=== PATIENT | female | born 1970 | race Caucasian/White ===

== ENCOUNTER 2019-12-24 08:53 | Outpatient (REF) | payer MEDICAID, SELFPAY | END 2019-12-24 08:54 | disposition home or self-care (01) | LOC: HO.LAB 08:53 | PROVIDERS: PCP Nurse Practitioner Family; Visit Provider Internal Medicine | DX: Z20.828 Contact with and (suspected) exposure to other viral communicable diseases (principal) | CPT/HCPCS: 87635 ==

== ENCOUNTER 2020-11-10 12:24 | Outpatient (REF) | payer MEDICAID, SELFPAY ==
--- NOTE | ~2020-11-10 | MM_ITS ---
EXAMINATION: MM SCREENING DIGITAL BREAST TOMOSYNTHESIS, BILATERAL CLINICAL INFORMATION: Screening. Asymptomatic. The lifetime risk of breast cancer based on the Tyrer-Cuzick Model is 7%. COMPARISON: Mammography: 11/05/2019, 07/24/2018, 07/17/2017 TECHNIQUE: Digital breast tomosynthesis is performed in both the craniocaudal and mediolateral oblique views along with computer-aided detection (CAD). Synthesized 2D images are generated from the tomosynthesis. Additional left MLO view is provided. FINDINGS: The breasts are heterogeneously dense, which may obscure small masses (ACR BI-RADS breast composition Category c). There are no significant masses, abnormal calcifications, or other abnormalities. There is urinary artifact versus dermal calcifications bilateral axilla. The skin contours are smooth. Axillary nodes are unremarkable. No significant changes. MM/MM tomosynthesis screening BI IMPRESSION: No mammographic evidence of malignancy. ASSESSMENT: BI-RADS 2: Benign RECOMMENDATION: Routine annual mammography screening. This patient's information was entered into a reminder system with a target due date for their next mammogram.
== END 2020-11-10 12:25 | disposition home or self-care (01) ==
LOC: HO.MAMMO 12:24
PROVIDERS: PCP Family Medicine; Visit Provider Family Medicine
DX: Z12.31 Encounter for screening mammogram for malignant neoplasm of breast (principal)
CPT/HCPCS: 77063; 77067

== ENCOUNTER 2020-12-14 10:44 | Outpatient (REF) | payer MEDICAID, SELFPAY ==
--- NOTE | ~2020-12-14 | US_ITS ---
EXAMINATION: US PELVIS CLINICAL INFORMATION: Abnormal uterine bleeding. COMPARISON: None TECHNIQUE: Ultrasound of the pelvis is performed using both transabdominal and transvaginal transducers along with Doppler. Transvaginal imaging is performed due to inadequate visualization transabdominally. FINDINGS: The uterus is anteverted and measures 8.8 x 4.4 x 5.2 cm in dimension. No focal uterine lesion is seen. Endometrial thickness is normal measuring 0.5 cm. The right ovary is normal-appearing and measures 2.6 x 1.5 x 4.2 cm. The left ovary is enlarged and measures 4.3 x 3.2 x 4.4 cm. There is a 2.8 x 2.7 x 2.8 cm complex left ovarian cyst with some internal echoes and single thin septation. There is no fluid in the pelvis. US/US pelvic and transvaginal IMPRESSION: Normal-appearing uterus and normal thickness endometrium. Enlarged left ovary and 2.8 x 2.7 x 2.8 cm complex left ovarian cyst.
== END 2020-12-14 10:45 | disposition home or self-care (01) ==
LOC: HO.US 10:44
PROVIDERS: PCP Family Medicine; Visit Provider Family Medicine
DX: N93.9 Abnormal uterine and vaginal bleeding, unspecified (principal)
CPT/HCPCS: 76830; 76856

== ENCOUNTER 2021-08-31 10:14 | Outpatient (REF) | payer MEDICAID, SELFPAY ==
[2021-08-31 10:47] LABS: COVID-19 Test Negative (Negative); IDNOW Serial# 08D9AD1C
== END 2021-08-31 10:15 | disposition home or self-care (01) ==
LOC: HO.LAB 10:14
PROVIDERS: Visit Provider Internal Medicine
DX: Z20.822 Contact with and (suspected) exposure to COVID-19 (principal)
CPT/HCPCS: 87635; C9803

== ENCOUNTER → 2021-09-21 13:44 | Outpatient (BNVA) | payer MEDICAID, SELFPAY | PROVIDERS: PCP Internal Medicine; Visit Provider Nurse Practitioner Family | DX: Z01.818 Encounter for other preprocedural examination (principal); K21.9 Gastro-esophageal reflux disease without esophagitis | CPT/HCPCS: 99202 ==

== ENCOUNTER 2021-10-12 10:26 | Day surgery (SDC) | payer MEDICAID, SELFPAY ==
[2021-10-06 15:26] VITALS: BMI 32.6
--- NOTE | 2021-10-11 09:41 | P.CONAN_ITS ---
Documented by User: Nilda Christy NP 10/11/21 09:41 HPI - Anesthesia Eval Consult details Narrative: 51yo F for Upper Endoscopy and Colonoscopy [facility] Past Medical History Medical History Diabetes Elevated cholesterol Family history of Crohn's disease GERD (gastroesophageal reflux disease) Family History Family History (Updated 09/21/21 @ 14:32 by Jones Richardson) Paternal Grandfather Diabetes Family/Other Stomach cancer Sister Chronic disease Surgical History Surgical History Surgical history unknown Social History Social History (Updated 08/04/21 @ 13:58 by Jones Richardson) Household Members: Other Alcohol intake: unknown Patient Tobacco Use Status: Current everyday Tobacco user Tobacco use type: Cigarette Cigarettes Per Day: 9 Advance Directives: No Advance Directives Information Provided: Yes Meds Allergies Allergy/AdvReac Type Severity Reaction Status Date / Time No Known Allergies Allergy Verified 10/12/21 11:01 Home Medications Medication Instructions Recorded Confirmed Last Taken Type amoxicillin 875 mg-potassium 1 tab PO Q12H 09/21/21 Unknown History clavulanate 125 mg tablet atorvastatin 20 mg tablet 20 mg PO DAILY 09/21/21 Unknown History baclofen 10 mg tablet 10 mg PO BID 09/21/21 Unknown History blood sugar diagnostic (FreeStyle #10 ea 09/21/21 Unknown History Lite Strips) cholecalciferol (vitamin D3) 50 50 mcg PO DAILY 09/21/21 Unknown History mcg (2,000 unit) tablet (Vitamin D3) hydroxyzine HCl 50 mg tablet 50 mg PO Q8H PRN 09/21/21 Unknown History lancets 28 gauge (FreeStyle #100 ea 09/21/21 Unknown History Lancets) lancets 33 gauge (TRUEplus Lancets) #100 ea 09/21/21 Unknown History metformin 500 mg tablet 500 mg PO QPM 09/21/21 Unknown History naproxen 500 mg tablet 500 mg PO BID 09/21/21 Unknown History omeprazole 20 mg capsule,delayed 20 mg PO DAILY 09/21/21 Unknown History release quetiapine 100 mg tablet 100 mg PO QAM 09/21/21 Unknown History quetiapine 400 mg tablet 400 mg PO BEDTIME 09/21/21 Unknown History tramadol 50 mg tablet 50 mg PO Q8H PRN pain 09/21/21 Unknown History zolpidem 10 mg tablet 10 mg PO BEDTIME 09/21/21 Unknown History Exam Exam Date and Time: October 11, 2021 0941 Height,Weight and Vital Signs: Height 5 ft Weight 75.807 kg Assessment and Plan Assessment Anesthesia Assessment: Chart Reviewed Documented by User: Andrzej Wiley MD 10/12/21 11:09 [facility] Past Medical History Medical History Diabetes Elevated cholesterol Family history of Crohn's disease GERD (gastroesophageal reflux disease) Family History Family History (Updated 09/21/21 @ 14:32 by Jones Richardson) Paternal Grandfather Diabetes Family/Other Stomach cancer Sister Chronic disease Family history of problems with anesthesia: No Surgical History Surgical History Surgical history unknown History of Problems with Anesthesia: No Social History Social History (Updated 08/04/21 @ 13:58 by Jones Richardson) Household Members: Other Alcohol intake: unknown Patient Tobacco Use Status: Current everyday Tobacco user Tobacco use type: Cigarette Cigarettes Per Day: 9 Advance Directives: No Advance Directives Information Provided: Yes Meds Allergies Allergy/AdvReac Type Severity Reaction Status Date / Time No Known Allergies Allergy Verified 10/12/21 11:01 Home Medications Medication Instructions Recorded Confirmed Last Taken Type amoxicillin 875 mg-potassium 1 tab PO Q12H 09/21/21 Unknown History clavulanate 125 mg tablet atorvastatin 20 mg tablet 20 mg PO DAILY 09/21/21 Unknown History baclofen 10 mg tablet 10 mg PO BID 09/21/21 Unknown History blood sugar diagnostic (FreeStyle #10 ea 09/21/21 Unknown History Lite Strips) cholecalciferol (vitamin D3) 50 50 mcg PO DAILY 09/21/21 Unknown History mcg (2,000 unit) tablet (Vitamin D3) hydroxyzine HCl 50 mg tablet 50 mg PO Q8H PRN 09/21/21 Unknown History lancets 28 gauge (FreeStyle #100 ea 09/21/21 Unknown History Lancets) lancets 33 gauge (TRUEplus Lancets) #100 ea 09/21/21 Unknown History metformin 500 mg tablet 500 mg PO QPM 09/21/21 Unknown History naproxen 500 mg tablet 500 mg PO BID 09/21/21 Unknown History omeprazole 20 mg capsule,delayed 20 mg PO DAILY 09/21/21 Unknown History release quetiapine 100 mg tablet 100 mg PO QAM 09/21/21 Unknown History quetiapine 400 mg tablet 400 mg PO BEDTIME 09/21/21 Unknown History tramadol 50 mg tablet 50 mg PO Q8H PRN pain 09/21/21 Unknown History zolpidem 10 mg tablet 10 mg PO BEDTIME 09/21/21 Unknown History Exam Airway Mallampati Class: II TM Dist: >3cm Neck ROM: Full Denture: Upper and Lower Heart: rrr Lungs: clear Assessment and Plan Final Anesthetic Review Family History of Problems with Anesthesia: No History of Problems with Anesthesia: No NPO: Yes ASA Class: II Final Preanesthetic Review: No Changes in Pt Med Stat, Meds/Allgs Chart Reviewed, Consent Obtained/Reviewed and Anes Risks/Benef Reviewed Patient Risk: Intermediate Anesthetic Plan Anesthetic Plan: MAC: Disposition: Standard PACU
[2021-10-12 11:07] VITALS: BP 127/74; PULSE 73; RESP 18; TEMP 36.7; O2SAT 98
[2021-10-12] MEDS: Lactated Ringers 1,000 ML 100 ML IVCONT (11:07)
[2021-10-12 11:33] LABS: Glucose, Whole Blood 112 mg/dL (60-115)
--- NOTE | 2021-10-12 11:47 | MHC.SHP ---
Pre-Procedural Eval Section A Date of Service: 10/12/21 Section B Chief Complaint: reflux disease,screening Details of Present Illness: sister with crohns Relevant Family History (Specify if Yes): Yes Relevant Social History: None (ex smoker, just gave up) Present Medications: see Short Stay Collaborative assessment Medical History: Significant History (Diabetes Elevated cholesterol Family history of Crohn's disease GERD (gastroesophageal reflux disease)) History of Previous Operations: No relevant previous surgery Allergies: Allergies Allergy/AdvReac Type Severity Reaction Status Date / Time No Known Allergies Allergy Verified 10/12/21 11:01 Review of Systems Sugical H&P ROS: Negative: Constitution, Cardiovascular, Respiratory, Neurological, Psychiatric, Hem-Onc, Allergic/Immunologic, Gastrointestinal, Genitourinary, Musculoskeletal, Integumentary, Endocrine and Eyes/Ears/Nose/Throat Exam Surgical H&P Exam: Normal: HEENT, Normal: Heart, Normal: Lungs, Normal: Extremities, Normal: Abdomen, Normal: Skin and Normal: Neurological Plan Diagnosis/Plan: Unchanged I have reviewed the history and physical and performed a pertinent physical examination on my patient. No changes have occurred unless specified.
--- NOTE | 2021-10-12 11:49 | P.OP_ITS ---
Operative Note Operative Note Date of Service: 10/12/21 Narrative: Operative Information Procedure Description: EGD, Colonoscopy Indication: GERD, screening colonosopy Anesthesia: MAC FLEXIBLE TRANSORAL UPPER GASTROINTESTINAL ENDOSCOPY AND COLONOSCOPY PROCEDURE NOTE UPPER ENDOSCOPY Consent: Indications for the procedure and potential complications of bleeding, perforation, reaction to medications and missed diagnosis were discussed with the patient and informed consent was obtained. Instrument: Olympus GIF H 190 J mid size upper endoscope Monitoring: Vital signs and clinical assessment, continuous EKG monitoring, Pulse oximetry, Carbon Dioxide monitoring and blood pressure monitoring were done throughout the procedure. Procedure: The patient was placed in the left lateral decubitis position and pre-procedure medications were administered and a bite block was placed. The endoscope was inserted into the mouth and advanced under direct vision to the third part of duodenum. A careful inspection was made as the upper endoscope was withdrawn including a retroflexed examination of the proximal stomach; Findings and interventions are described below. Findings: Larynx:normal Esophagus: GE junction at 37 cm, diaphragm hiatus at 40 cm, consistent with 3 cm sliding hiatal hernia, normal mucosa, non obstructive schatzki ring noted. Stomach: erosive gastritis at antrum. Biopsies were obtained. Grade 2 flap valve on retroflexed examination of the cardia. Duodenum: bulbar duodenitis, bx taken Intervention: Biopsies as noted above COLONOSCOPY Instrument: Olympus variable stiffness pediatric scope 190L Colonoscopy Monitoring: Vital signs and clinical assessment, continuous EKG monitoring, Pulse oximetry, Carbon Dioxide monitoring and blood pressure monitoring were done throughout the procedure. Colon withdrawal time was 10 minutes. Procedure: The patient was placed in the left lateral decubitis position and pre-procedure medications were administered. After a digital rectal examination of the ano-rectum, the video colonoscope was inserted into the rectum and advanced through the colon to the cecum/TI. The colonoscope was slowly withdrawn in a retrograde panoramic fashion and the colon mucosa was carefully examined including a retroflexed view of the rectum. Findings and interventions are described below. Procedure Difficulty:easy Findings: Terminal Ileum-scattered erosions, bx taken Random right sided, left sided and rectum biopsies taken in separate jars Cecum:normal Ascending Colon: normal Transverse Colon -normal Descending Colon:normal Sigmoid Colon: normal Rectum: Retroflexion with small internal hemorrhoids, grade I, 5-6 mm sessile polyp removed with cold forceps. Small erosions and mild erythema in rectum Anorectum - normal Colon preparation: [place] Bowel Preparation Scale Right colon; 1-2 Transverse colon: 2 Left colon; 3 (0 = Unprepared colon segment with mucosa not seen due to solid stool that cannot be cleared. 1 = Portion of mucosa of the colon segment seen, but other areas of the colon segment not well seen due to staining, residual stool and/or opaque liquid. 2 = Minor amount of residual staining, small fragments of stool and/or opaque liquid, but mucosa of colon segment seen well. 3 = Entire mucosa of colon segment seen well with no residual staining, small fragments of stool or opaque liquid) Impression and Post Procedure Diagnosis: Endoscopy Findings: schatzki ring hiatal hernia erosive gastritis bulbar duodenitis Colonoscopy Findings: polyp internal hemorrhoids erosive ileitis mild colitis Plan: Await Pathology results Repeat Colonoscopy in 5 years due to fair right sided prep or earlier if clinically indicated High fiber diet leaflet avoid straining at stool, epsom salts and sitz bath, anusol supps or cream check nsaid history Above findings were reviewed with the patient and relevant handouts were provided if indicated.
[2021-10-12 12:44] VITALS: BP 128/76; PULSE 75; RESP 14; TEMP 36.4; O2SAT 99
[2021-10-12 12:57] VITALS: BP 135/77; PULSE 67; RESP 20; TEMP 36.4; O2SAT 100
== END 2021-10-12 13:17 | disposition home or self-care (01) ==
PROVIDERS: PCP Family Medicine; Visit Provider Internal Medicine Gastroenterology
PROC: (CPT 45380; principal; 2021-10-12 11:40)
DX: Z12.11 Encounter for screening for malignant neoplasm of colon (principal); K62.1 Rectal polyp; K64.0 First degree hemorrhoids; K52.89 Other specified noninfective gastroenteritis and colitis; K21.9 Gastro-esophageal reflux disease without esophagitis; K29.50 Unspecified chronic gastritis without bleeding; B96.81 Helicobacter pylori [H. pylori] as the cause of diseases classified elsewhere; K29.80 Duodenitis without bleeding; K22.2 Esophageal obstruction; K44.9 Diaphragmatic hernia without obstruction or gangrene; Z83.79 Family history of other diseases of the digestive system; E78.00 Pure hypercholesterolemia, unspecified; E11.9 Type 2 diabetes mellitus without complications; Z79.84 Long term (current) use of oral hypoglycemic drugs; Z79.899 Other long term (current) drug therapy; F17.210 Nicotine dependence, cigarettes, uncomplicated
CPT/HCPCS: 45380; 43239; 82947; 88305; 88342

== ENCOUNTER 2021-11-12 12:15 | Outpatient (REF) | payer MEDICAID, SELFPAY ==
--- NOTE | ~2021-11-12 | MM_ITS ---
EXAMINATION: MM SCREENING DIGITAL BREAST TOMOSYNTHESIS, BILATERAL CLINICAL INFORMATION: Screening. Asymptomatic. The lifetime risk of breast cancer based on the Tyrer-Cuzick Model is 7%. COMPARISON: Mammography: 11/10/2020, 11/05/2019, 07/24/2018, 07/17/2017 TECHNIQUE: Digital breast tomosynthesis is performed in both the craniocaudal and mediolateral oblique views along with computer-aided detection (CAD). Synthesized 2D images are generated from the tomosynthesis. FINDINGS: The breasts are heterogeneously dense, which may obscure small masses (ACR BI-RADS breast composition Category c). Parenchymal pattern is similar to prior studies. There is no developing density or architectural abnormality. Again, there is small nodular asymmetry central inner right breast similar to prior exams. The axilla and skin contours are unremarkable. No significant changes. MM/MM tomosynthesis screening BI IMPRESSION: No mammographic evidence of malignancy. ASSESSMENT: BI-RADS 2: Benign RECOMMENDATION: Routine annual mammography screening. This patient's information was entered into a reminder system with a target due date for their next mammogram.
== END 2021-11-12 12:16 | disposition home or self-care (01) ==
LOC: HO.MAMMO 12:15
PROVIDERS: PCP Family Medicine; Visit Provider Family Medicine
DX: Z12.31 Encounter for screening mammogram for malignant neoplasm of breast (principal)
CPT/HCPCS: 77063; 77067

== ENCOUNTER 2022-11-04 09:17 | Outpatient (REF) | payer MEDICAID, SELFPAY ==
[2022-11-04 12:08] LABS: Alanine Aminotransferase 18 U/L (0-31); Albumin Level 4.7 g/dL (3.5-5.0); Alkaline Phosphatase 59 U/L (39-117); Anion Gap 13 (12-20); Aspartate Amino Transferase 15 U/L (5-31); Bilirubin Total 0.5 mg/dL (0.0-1.0); Blood Urea Nitrogen 10 mg/dL (9-16); Calcium 10.4 mg/dL (8.4-10.2); Carbon Dioxide 26 mmol/L (22-29); Chloride 104 mmol/L (96-108); Cholesterol 214 mg/dL (<200); Estimated Glomerular Filt Rate > 60; Glucose Random 118 mg/dL (60-115); HDL Cholesterol 55 mg/dL (>40); LDL Cholesterol Calculated 148 mg/dL (<100); Potassium 3.5 mmol/L (3.3-5.1); Sodium 139 mmol/L (135-145); Triglycerides 58 mg/dL (<150)
[2022-11-04 12:37] LABS: Estimated Average Glucose 120 mg/dL; Hemoglobin A1C 149.6703 umol/L; Hemoglobin A1c % 5.8 % (<6.0)
== END 2022-11-04 09:18 | disposition home or self-care (01) ==
LOC: HO.HHCL 09:17
PROVIDERS: Visit Provider General Practice
DX: E11.9 Type 2 diabetes mellitus without complications (principal)
CPT/HCPCS: 36415; 80053; 80061; 83036

== ENCOUNTER 2022-11-18 12:25 | Outpatient (REF) | payer MEDICAID, SELFPAY | END 2022-11-18 12:26 | disposition home or self-care (01) | LOC: HO.MAMMO 12:25 | PROVIDERS: PCP General Practice; Visit Provider Family Medicine | DX: Z12.31 Encounter for screening mammogram for malignant neoplasm of breast (principal) | CPT/HCPCS: 77063; 77067 ==

== ENCOUNTER → 2022-11-18 12:30 | Outpatient (BNV) | payer MEDICAID, SELFPAY | PROVIDERS: PCP General Practice; Visit Provider Radiology Diagnostic Radiology | DX: Z12.31 Encounter for screening mammogram for malignant neoplasm of breast (principal) | CPT/HCPCS: 77063; 77067 ==

== ENCOUNTER 2023-06-20 12:12 | Outpatient (REF) | payer MEDICAID, SELFPAY ==
[2023-06-20 13:19] LABS: MANUAL DIFF FLAG NO
[2023-06-20 13:35] LABS: Basophils Percent Auto 0.2 % (0-2); Eosinophils Percent Auto 0.4 % (0-4); Hemoglobin 13.6 g/dl (12.0-16.0); Imm Gran Abs Auto 0.03 X10*3/uL (0.00-0.03); Imm Gran Pct Auto 0.3 % (0.0-0.4); Lymphocytes Absolute Auto 2.5 X10*3/uL (1.2-4.9); Lymphocytes Percent Auto 23.5 % (20-40); Mean Corpuscular HGB Conc 34.9 g/dl (31.0-35.0); Mean Corpuscular Hemoglobin 32.2 pg (27.0-33.0); Mean Corpuscular Volume 92.2 fL (80.0-98.0); Mean Platelet Volume 10.6 fL (9.4-12.3); Monocytes Absolute Auto 0.6 X10*3/uL (0.1-1.2); Monocytes Percent Auto 5.6 % (2-11); Neutrophils Absolute Auto 7.5 x10*3/uL (2.0-8.3); Platelet Count 364 X10*3/uL (160-400); Red Blood Count 4.23 X10*6/uL (4.20-5.50); White Blood Count 10.8 X10*3/uL (4.8-10.8)
== END 2023-06-20 12:13 | disposition home or self-care (01) ==
LOC: HO.HHCL 12:12
PROVIDERS: Visit Provider Nurse Practitioner Primary Care
DX: R20.0 Anesthesia of skin (principal)
CPT/HCPCS: 36415; 85025

== ENCOUNTER 2023-08-09 10:45 | Outpatient (REF) | payer MEDICAID, SELFPAY ==
[2023-08-09 12:31] LABS: Vitamin B12 513 pg/mL (200-900)
== END 2023-08-09 10:46 | disposition home or self-care (01) ==
LOC: HO.HHCL 10:45
PROVIDERS: Visit Provider Nurse Practitioner Primary Care
DX: R20.0 Anesthesia of skin (principal)
CPT/HCPCS: 36415; 82607

== ENCOUNTER 2023-11-24 12:15 | Outpatient (REF) | payer MEDICAID, SELFPAY ==
--- NOTE | ~2023-11-24 | MM_ITS ---
EXAMINATION: MM SCREENING DIGITAL BREAST TOMOSYNTHESIS, BILATERAL CLINICAL INFORMATION: Screening. Asymptomatic. COMPARISON: Mammography: Comparison is made with available priors TECHNIQUE: Digital breast mammography with tomosynthesis is performed in both the craniocaudal and mediolateral oblique views along with computer-aided detection (CAD). FINDINGS: The breasts are heterogeneously dense, which may obscure small masses (ACR BI-RADS breast composition Category c). There are no significant masses, abnormal calcifications, or other abnormalities. MM/MM tomosynthesis screening BI IMPRESSION: No mammographic evidence of malignancy. ASSESSMENT: BI-RADS BI-RADS 1 - Negative RECOMMENDATION: Routine annual mammography screening. 1 year F/U This examination should not preclude the clinical evaluation of a suspicious palpable abnormality. This patient's information was entered into a reminder system with a target due date for their next mammogram. Electronically signed by: Yadi Vogel DO 12/07/2023 08:17 PM EDT
== END 2023-11-24 12:16 | disposition home or self-care (01) ==
LOC: HO.MAMMO 12:15
PROVIDERS: Visit Provider General Practice
DX: Z12.31 Encounter for screening mammogram for malignant neoplasm of breast (principal)
CPT/HCPCS: 77063; 77067

== ENCOUNTER → 2023-11-24 12:30 | Outpatient (BNV) | payer MEDICAID, SELFPAY | PROVIDERS: Visit Provider Internal Medicine | DX: Z12.31 Encounter for screening mammogram for malignant neoplasm of breast (principal) | CPT/HCPCS: 77063; 77067 ==

== ENCOUNTER 2024-04-11 11:39 | Outpatient (REF) | payer MEDICAID, SELFPAY ==
[2024-04-11 12:59] LABS: MANUAL DIFF FLAG NO
[2024-04-11 13:11] LABS: Basophils Percent Auto 0.2 % (0-2); Eosinophils Absolute Auto 0.2 X10*3/uL (0.0-0.4); Eosinophils Percent Auto 1.9 % (0-4); Hematocrit 42.5 % (37.0-47.0); Hemoglobin 14.8 g/dl (12.0-16.0); Imm Gran Abs Auto 0.03 X10*3/uL (0.00-0.03); Imm Gran Pct Auto 0.3 % (0.0-0.4); Lymphocytes Absolute Auto 3.8 X10*3/uL (1.2-4.9); Lymphocytes Percent Auto 36.8 % (20-40); Mean Corpuscular HGB Conc 34.8 g/dl (31.0-35.0); Mean Corpuscular Hemoglobin 31.6 pg (27.0-33.0); Mean Corpuscular Volume 90.8 fL (80.0-98.0); Mean Platelet Volume 11.3 fL (9.4-12.3); Monocytes Absolute Auto 0.6 X10*3/uL (0.1-1.2); Monocytes Percent Auto 5.5 % (2-11); Neutrophils Absolute Auto 5.6 x10*3/uL (2.0-8.3); Neutrophils Percent Auto 55.3 % (45-73); Platelet Count 323 X10*3/uL (160-400); Red Blood Count 4.68 X10*6/uL (4.20-5.50); Red Cell Distribution Width 12.9 % (11.0-16.0); White Blood Count 10.2 X10*3/uL (4.8-10.8)
--- OUTSIDE RECORDS SUMMARY | 2024-04-11 15:35 | XMS_ITS | Encounter Summary ---
Author Organization [employer] Address [address] [place] [address] Care Team Providers Care Securities Analyst Name Role Phone Bianca Shearer MD Primary Care Provider [phone] David Clark Unavailable Unavailable Reason for Visit * Reason Onset Date Comments RS APPT 03/20/2024 Encounter Details Date Type Department Care Team (Late st Contact Info) Description 03/20/2024 Telephone [facility]INE [address] [place], [place] [phone] Ellen Crain MA RS APPT Social History Tobacco Use Types Packs/Day Years Used Date Smoking Tobacco: Former Cigarettes Q uit: 10/11/2021 Smokeless Tobacco: Never Alcohol Use Standard Drinks/Week Comments Not Asked 0 (1 standard drink = 0.6 oz pur e alcohol) Depression Answer Date Recorded Patient Health Questionnaire-9 Score 5 08/15/2023 Patient Health Questionnaire-9 Score 5 08/15/2023 Last PHQ-9: Questionnaire Data Not on file 0 08/15/2023 Housing Stability Answer Date Recorded What is your housing situation today? I have dima talbot 04/17/[address] you li ve. Do you have problems with any of the following? None of the above 04/17/2023 Food Insecurity Answer Date Recorded Within the past 12 months, y ou worried that your food would run out before you got money to buy more: Never True 04/17/2023 Within the past 12 months,th e food you bought just didn't last and you didn't have enough money to get more: Never True 07/2023 Transportation Answer Date Recorded In the past 12 months, has l ack of transportation kept you from medical appts, meetings, work or from getting things needed for daily living? No 04/17/2023 Utilities Answer Date Recorded In the past 12 months, has t he electric, gas, oil or water company threatened to shut off services in your home? No 04/17/2023 Depression Answer Date Recorded Patient Health Questionnaire-2 Score 1 08/15/2023 Comments Unknown Sex and Gender Information Value Date Recorded Sex Assigned at Female 01/10/2022 10:18 AM EDT Legal Sex Female 10:18 AM EDT Gender Identity Female 01/10/2022 10:18 AM EDT Sexual Orientation Choose not to disclose 2021 10:18 AM EDT documented as of this encounter Miscellaneous Notes * Telephone Encounter - Ellen Crain MA - 03/20/2024 10:02 AM EST T/C placed spoke with pt, pt agreed to rs appt from 04/05/24 to 04/11/24 documented in this encounter Plan of Treatment Upcoming Encounters Date Type Department Care Team (Late st Contact Info) Description 06/03/2024 10:00 AM EDT Clinical Support [facility] [address] [place] [address] Heidi Castañeda RN documented as of this encounter Visit Diagnoses Not on filedocumented in this encounter Additional Health Concerns Assessment Noted Time PHQ-9 Depression Total Score: 5 08/15/19 24 9:39 AM EDT documented as of this encounter Care Teams Securities Analyst Relationship Specialty Start Date End Date Bianca Shearer MD [address] [place] [address] PCP - General Family Medicine 11/26/21 David Clark FNP [address] [place] [address] Nurse Practitioner Family Medicine 01/24/23 documented as of this encounter
--- OUTSIDE RECORDS SUMMARY | 2024-04-11 15:35 | XMS_ITS | Encounter Summary ---
Author Organization [employer] Address [address] [place] [address] Care Team Providers Care Buttoner Name Role Phone Bianca Shearer MD Primary Care Provider [phone] David Calrk Unavailable Unavailable Reason for Visit * Reason Comments Med Refill Encounter Details Date Type Department Care Team ([facility] st Contact Info) Description 02/01/[address] [facility] MEDICINE [address] [place], [place] [phone] Bianca Shearer MD [address] [place] [address] Chronic pain of right knee Social History Tobacco Use Types Packs/Day Years [...] AM EDT documented as of this encounter Plan of Treatment Upcoming Encounters Date Type Department Care Team (Late st Contact Info) Description 06/03/2024 10:00 AM EDT Clinical Support [facility]INE [address] [place] [address] Heidi Castañeda RN documented as of this encounter Visit Diagnoses Diagnosis Chronic pain of right knee documented in this encounter Additional Health Concerns Assessment Noted Time PHQ-9 Depression Total Score: 5 08/15/19 24 9:39 AM EDT documented as of this encounter Care Teams Buttoner Relationship Specialty Start Date End Date Bianca Shearer MD [address] [place] [id number] PCP - General Family Medicine 11/26/21 David Clark FNP [address] [place] [id number] Nurse Practitioner Family Medicine 01/24/23 documented as of this encounter
--- OUTSIDE RECORDS SUMMARY | 2024-04-11 15:35 | XMS_ITS | Encounter Summary ---
Author Organization [employer] Address [address] [place] [address] Care Team Providers Care Manager Card Name Role Phone Bianca Shearer MD Primary Care Provider [phone] David Clark Unavailable Unavailable Reason for Visit * Reason Onset Date Comments Med Refill 02/01/2024 Encounter Details Date Type Department Care Team (Late st Contact Info) Description 02/01/2024 Telephone [facility] MEDICINE [address] [place], [place] [phone] Bianca Shearer MD [address] [place] [address] Med Refill Social History Tobacco Use Types Packs/Day Years [...] encounter Miscellaneous Notes * Telephone Encounter - Emily Davenport LPN - 02/01/2024 9:21 AM EST STEAMFITTER checked on 02/01/24 medication should still have refills. * Telephone Encounter - Dee Gama - 02/01/2024 9:05 AM EST TC from pt requesting medication refill. Medications needing refill : zolpidem (Ambien) 10 MG tablet To be sent to: [facility]/pharmacy #[id number] - [address] documented in this encounter Plan of Treatment Upcoming Encounters Date Type Department Care Team (Late st Contact Info) Description 06/03/2024 10:00 AM EDT Clinical Support [facility] MEDICINE [address] [place] [address] Heidi Castañeda RN documented as of this encounter Visit Diagnoses Not on filedocumented in this encounter Additional Health Concerns Assessment Noted Time PHQ-9 Depression Total Score: 5 08/15/19 9:39 AM EDT documented as of this encounter Care Teams Manager Card Relationship Specialty Start Date End Date Bianca Shearer MD [address] [place] [address] PCP - General Family Medicine 11/26/21 David Clark FNP [address] [place] [address] RAUL Saldaña [id number] Nurse Practitioner Family Medicine 01/24/23 documented as of this encounter
--- OUTSIDE RECORDS SUMMARY | 2024-04-11 15:35 | XMS_ITS | Encounter Summary ---
Author Organization [employer] Address [address] [facility] [facility] [address] [place] [address] Care Team Providers Care Advertising Assistant Name Role Phone Bianca Shearer MD Primary Care Provider [phone] David Clark Unavailable Unavailable Encounter Details Date Type Department Care Team (Late st Contact Info) Description 11/11/2022 Orders Only [facility] MEDICINE [address] [place], [place] [phone] Bianca Shearer MD [address] [place], [place] [phone] Social History Tobacco Use Types Packs/Day Years Used Date Smoking Tobacco: Former Cigarettes Q uit: 10/11/2021 Smokeless Tobacco: Never Depression Answer Date Recorded Patient Health Questionnaire-9 Score 0 09/27/2022 Depression Answer Date Recorded Patient Health Questionnaire-2 Score 0 09/27/2022 Comments Unknown Sex and Gender Information Value Date Recorded Sex Assigned at Female 01/10/2022 10:18 AM EDT Legal Sex Female 10:18 AM EDT Gender Identity Female 01/10/2022 10:18 AM EDT Sexual Orientation Choose not to disclose 2021 10:18 AM EDT documented as of this encounter Miscellaneous Notes * Result Encounter Note - LUZ Pierre - 11/11/2022 10:42 AM EDT This was drawn at lab downstairs, can you outreach to clarify and see if lab can repeat or run off of CBC done? documented in this encounter Plan of Treatment Upcoming Encounters Date Type Department Care Team (Late st Contact Info) Description 06/03/2024 10:00 AM EDT Clinical Support [facility] MEDICINE [address] [place] [address] Heidi Castañeda RN documented as of this encounter Procedures Procedure Name Priority Date/Time Associated Diagnosis Comments CANCELLED CHEMISTRY Routine 06/20/2023 1 2:18 PM EDT BI MAMMOGRAM SCREENING TOMOSYNTHESIS BILATERAL Routine 11/18/2022 12:50 PM EDT documented in this encounter Results * Cancelled Chemistry (06/20/2023 12:18 PM EDT) Cancelled Chemistry SEE NOTE [facility] Comment:B12 UNABLE TO BE PER FORMED DUE TO INCORRECT CONTAINER TYPERECEIVED 06/20/2023 12:1 8 PM EDT 06/20/2023 1:42 PM EDT us Maria D Leo ANP HISTORICAL/NON ORDERABLE LABS Fi nal Result [facility] [address] [place] [address] [phone] * BI Mammogram Screening Tomosynthesis Bilateral (11/18/2022 12:50 PM EDT) Anatomical Region Laterality Modality Breast Bilateral Mammography 11/18/2022 12:5 0 PM EDT Narrative 12/05/2022 9:40 PM EDT ? [facility] ? [address] ?[place] [address] ? Mammography Report ? Signed ? Patient: Rainey,Farnaz ?MR#: [id number] ?? [id number] ? : 1970 ?Acct:[id number] ? Age/Sex: 52 / F ?ADM Date: 09//23 ? Loc: HO.MAMMO ? Attending Dr: Danielle Hightower MD ? Ordering Physician: Danielle Hightower MD ?Results: 1Nega ?? tive ? Date of Service: 11/18/22 ?Follow Up: 1 Year From Orig ?? inal Mammogram ? Procedure(s): MM tomosynthesis screening BI ?? Accession Number(s): [id number] ? cc: Bianca Shearer; Danielle Hightower MD ? EXAMINATION: ?? MM SCREENING DIGITAL BREAST TOMOSYNTHESIS, BILATERAL ? CLINICAL INFORMATION: ? Screening. Asymptomatic. ? COMPARISON: ?? Mammography: This study is compared with prior exams dating back to ?? 2018. ? TECHNIQUE: ?? Digital breast tomosynthesis is performed in both the craniocaudal and ?? mediolateral oblique views along with computer-aided detection (CAD). ?? Synthesized 2D images are generated from the tomosynthesis. ? FINDINGS: ?? The breasts are heterogeneously dense, which may obscure small masses ?? (ACR BI-RADS breast composition Category c). ? There are no significant masses, abnormal calcifications, or other ?? abnormalities. ? MM/MM tomosynthesis screening BI ?? IMPRESSION: ?? No mammographic evidence of malignancy. ? ASSESSMENT: ? BI-RADS BI-RADS 1 - Negative ? RECOMMENDATION: ?? Routine annual mammography screening. ? 1 year F/U ? This examination should not preclude the clinical evaluation of a ?? suspicious palpable abnormality. ? This patient's information was entered into a reminder system with a ?? target due date for their next mammogram. ? Dictated By: ?Earline Noel MD ? Signed By: ?<Electronically signed by Earline Noel MD in OV> ? 12/05/226 ? DD/ 1250 ? TD/TT: ? Library Helper: ? Procedure Note Donotuseinterpreter, Image - [facility]06/2022 [facility] [address] [place] [address] Mammography Report Signed Patient: Lorraine Rainey#: [id number] : 1970Acct:[id number] Age/Sex: 52 / FADM Date: 11/18/22 Loc: PRABHJOT Attending Dr: Danielle Hightower MD Ordering Physician: Danielle Hightowerults: 1Nega tive Date of Service: 11/18/22Follow Up: 1 Year From Orig inal Mammogram Procedure(s): MM tomosynthesis screening BI Accession Number(s): [id number] cc: Bianca Shearer; Danielle Hightower MD EXAMINATION: MM SCREENING DIGITAL BREAST TOMOSYNTHESIS, BILATERAL CLINICAL INFORMATION: Screening. Asymptomatic. COMPARISON: Mammography: This study is compared with prior exams dating back to 2018. TECHNIQUE: Digital breast tomosynthesis is performed in both the craniocaudal and mediolateral oblique views along with computer-aided detection (CAD). Synthesized 2D images are generated from the tomosynthesis. FINDINGS: The breasts are heterogeneously dense, which may obscure small masses (ACR BI-RADS breast composition Category c). There are no significant masses, abnormal calcifications, or other abnormalities. MM/MM tomosynthesis screening BI IMPRESSION: No mammographic evidence of malignancy. ASSESSMENT: BI-RADS BI-RADS 1 - Negative RECOMMENDATION: Routine annual mammography screening. 1 year F/U This examination should not preclude the clinical evaluation of a suspicious palpable abnormality. This patient's information was entered into a reminder system with a target due date for their next mammogram. Dictated By: Earline Noel MD Signed By: <Electronically signed by Earline Noel MD in OV> 12/05/222135 DD/ 1250 TD/TT: Library Helper: us Danielle Hightower MD IMG BI PROCEDURES Edited Resu lt - Final documented in this encounter Visit Diagnoses Not on filedocumented in this encounter Additional Health Concerns Assessment Noted Time PHQ-9 Depression Total Score: 0 09/28/19 23 9:26 AM EDT documented as of this encounter Care Teams Advertising Assistant Relationship Specialty Start Date End Date Bianca Shearer MD [address] [place] [address] PCP - General Family Medicine 11/26/21 David Clark FNP [address] [place] [address] Nurse Practitioner Family Medicine 01/24/23 documented as of this encounter
--- OUTSIDE RECORDS SUMMARY | 2024-04-11 15:35 | XMS_ITS | Encounter Summary ---
Author Organization [employer] Address [address] [place] [address] Care Team Providers Care Gripper Installer Name Role Phone Bianca Shearer MD Primary Care Provider [phone] David Clark Unavailable Unavailable Reason for Visit * Reason Onset Date Comments Call Back Request 04/02/2024 Encounter Details Date Type Department Care Team ([facility] st Contact Info) Description 04/02/2024 Telephone [facility] MED[facility]INE [address] [place], [place] [phone] Bianca Shearer MD [address] [place], [place] [phone] Call Back Request Social History Tobacco Use Types Packs/Day Years [...] from getting things needed for daily living? Yes, it has kept me from non-medical meetings, work, or getting things that I need 04/02/2024 Utilities Answer Date Recorded In the past 12 months, has t he electric, gas, oil or water company threatened to shut off services in your home? No 04/17/2023 Depression Answer Date Recorded Patient Health Questionnaire-2 Score 1 08/15/2023 Internet Access Answer Date Recorded Internet Access Q1 Yes 04/02/2024 Internet Access Q2 Not on file 04/02/2024 Comments Unknown Sex and Gender Information Value Date Recorded Sex Assigned at Female 01/10/2022 10:18 AM EDT Legal Sex Female 10:18 AM EDT Gender Identity Female 01/10/2022 10:18 AM EDT Sexual Orientation Choose not to disclose 2021 10:18 AM EDT documented as of this encounter Miscellaneous Notes * Telephone Encounter - Heidi Castañeda RN - 04/02/2024 11:47 AM EST Return TC to patient, rescheduled [employer] appt for 04/03/24 @ 10am. * Telephone Encounter - Rossy Hernandez - 04/02/2024 8:57 AM EST Tc from pt requesting a call back in regards urine labs. [phone] documented in this encounter Plan of Treatment Upcoming Encounters Date Type Department Care Team (Late st Contact Info) Description 06/03/2024 10:00 AM EDT Clinical Support [facility] [address] [place] [phone] Heidi Castañeda, RN documented as of this encounter Visit Diagnoses Not on filedocumented in this encounter Additional Health Concerns Assessment Noted Time PHQ-9 Depression Total Score: 5 08/15/19 9:39 AM EDT documented as of this encounter Care Teams Gripper Installer Relationship Specialty Start Date End Date Bianca Shearer MD [address] [place] [address] PCP - General Family Medicine 11/26/21 David Clark FNP [address] [place] [address] Nurse Practitioner Family Medicine 01/24/23 documented as of this encounter
--- OUTSIDE RECORDS SUMMARY | 2024-04-11 15:35 | XMS_ITS | Encounter Summary ---
Author Organization [employer] Address [address] [facility] [address] [place] [address] Care Team Providers Care Dry Pan Operator Name Role Phone Bianca Shearer MD Primary Care Provider [phone] David Clark Unavailable Unavailable Reason for Visit * Reason Comments Med Refill Encounter Details Date Type Department Care Team ([facility] st Contact Info) Description 02/01/2024 Refill [facility] MEDICINE [address] [place], [place] [phone] Bianca Shearer MD [address] [place] [address] Social History Tobacco Use Types Packs/Day Years [...] Description 06/03/2024 10:00 AM EDT Clinical Support [facility] MEDICINE [address] [place] [address] Heidi Castañeda, SARAH BETH documented as of this encounter Visit Diagnoses Not on filedocumented in this encounter Additional Health Concerns Assessment Noted Time PHQ-9 Depression Total Score: 5 08/15/19 24 9:39 AM EDT documented as of this encounter Care Teams Dry Pan Operator Relationship Specialty Start Date End Date Bianca Shearer MD [address] [place] [phone] PCP - General Family Medicine 11/26/21 David Clark FNP [address] [place] [phone] Nurse Practitioner Family Medicine 01/24/23 documented as of this encounter
--- OUTSIDE RECORDS SUMMARY | 2024-04-11 15:35 | XMS_ITS | Encounter Summary ---
Author Organization [employer] [facility] Address [address] [place] [address] 7t [place] [address] Care Team Providers Care Farmworker Dairy Name Role Phone Bianca Shearer MD Primary Care Provider [phone] David Clark Unavailable Unavailable Reason for Visit * Reason Comments Med Refill Encounter Details Date Type Department Care Team (Late st Contact Info) Description 12/30/2022 Refill [facility] MEDICINE [address] [place] [address] [phone] Emily Sheikh DO [address] [place] [address] Social History Tobacco Use Types Packs/Day Years Used Date Smoking Tobacco: Former Cigarettes Q uit: 10/11/2021 Smokeless Tobacco: Never Depression Answer Date Recorded Patient Health Questionnaire-9 Score 1 12/29/2022 Patient Health Questionnaire-9 Score 1 12/29/2022 Last PHQ-9: Questionnaire Data Not on file 1 Depression Answer Date Recorded Patient Health Questionnaire-2 Score 0 12/29/2022 Comments Unknown Sex and Gender Information Value [...] Description 06/03/2024 10:00 AM EDT Clinical Support [facility] MEDICINE [address] [place] [phone] Maddy, Heidi, RN documented as of this encounter Visit Diagnoses Not on filedocumented in this encounter Additional Health Concerns Assessment Noted Time PHQ-9 Depression Total Score: 1 12/30/19 23 8:54 AM EDT documented as of this encounter Care Teams Farmworker Dairy Relationship Specialty Start Date End Date Bianca Shearer MD [address] [place] [address] PCP - General Family Medicine 11/26/21 David Clark FNP [address] [place] [address] Nurse Practitioner Family Medicine 01/24/23 documented as of this encounter
--- OUTSIDE RECORDS SUMMARY | 2024-04-11 15:35 | XMS_ITS | Encounter Summary ---
Author Organization [email or web address] [facility] Address [address] 7[address] [place] [address] Care Team Providers Care Commercial Front Load Driver Name Role Phone Bianca Shearer MD Primary Care Provider [phone] David Clark Unavailable Unavailable Reason for Visit * Reason Comments Med Refill Encounter Details Date Type Department Care Team (Late st Contact Info) Description 12/29/[address] [facility] MEDICINE [address] [place] [phone] Bianca Shearer MD [address] [place] [phone] Chronic pain of right knee Social History [...] Description 06/03/2024 10:00 AM EDT Clinical Support [facility] MEDICINE [address] [place] [phone] Heidi Castañeda, RN documented as of this encounter Visit Diagnoses Diagnosis Chronic pain of right knee documented in this encounter Additional Health Concerns Assessment Noted Time PHQ-9 Depression Total Score: 1 12/30/19 23 8:54 AM EDT documented as of this encounter Care Teams Commercial Front Load Driver Relationship Specialty Start Date End Date Bianca Shearer MD [address] [place] [address] PCP - General Family Medicine 11/26/21 David Clark FNP [address] [place] [address] Nurse Practitioner Family Medicine 01/24/23 documented as of this encounter
--- OUTSIDE RECORDS SUMMARY | 2024-04-11 15:35 | XMS_ITS | Encounter Summary ---
Author Organization [employer] Address [address] [place] [address] Care Team Providers Care Expansion Joint Finisher Name Role Phone Bianca Shearer MD Primary Care Provider [phone] David Clark Unavailable Unavailable Reason for Visit * Reason Onset Date Comments Med Refill 03/29/2024 Encounter Details Date Type Department Care Team (Late st Contact Info) Description 03/29/2024 Refill [facility] MEDICINE [address] [place], [place] [phone] Bianca Shearer MD [address] [place] [address] Chronic pain of right knee Social History [...] encounter Miscellaneous Notes * Telephone Encounter - Rossy Hernandez - 03/29/2024 1:33 PM EST TC from pt requesting medication refill. Pt states know is early but she's requesting because Monday [facility] are going to be closed. Medications needing refill : traMADol (Ultram) 50 MG tablet To be sent to: [id number] [place] [facility] [address] [place] [address] documented in this encounter Plan of Treatment Upcoming Encounters Date Type Department Care Team (Late st Contact Info) Description 06/03/2024 10:00 AM EDT Clinical Support [facility]INE [address] [place] [address] Heidi Castañeda, SARAH BETH documented as of this encounter Visit Diagnoses Diagnosis Chronic pain of right knee documented in this encounter Additional Health Concerns Assessment Noted Time PHQ-9 Depression Total Score: 5 08/15/19 24 9:39 AM EDT documented as of this encounter Care Teams Expansion Joint Finisher Relationship Specialty Start Date End Date Bianca Shearer MD [address] [place] [address] PCP - General Family Medicine 11/26/21 Daivd Clark FNP [address] [place] [address] Nurse Practitioner Family Medicine 01/24/23 documented as of this encounter
--- OUTSIDE RECORDS SUMMARY | 2024-04-11 15:35 | XMS_ITS | Encounter Summary ---
Author Organization [employer] Address [address] [facility] 7t [place] [address] Care Team Providers Care Qa Engineer Name Role Phone Bianca Shearer MD Primary Care Provider [phone] David Clark Unavailable Unavailable Reason for Visit * Reason Onset Date Comments Med Refill 03/29/2024 Encounter Details Date Type Department Care Team (Late st Contact Info) Description 03/29/2024 Refill [facility] MEDICINE [address] [place], [place] [phone] Bianca Shearer MD [address] [place] [address] Other specified anxiety disorders Social History Tobacco Use Types Packs/Day Years [...] Telephone Encounter - Rossy Hernandez - 03/29/2024 1:31 PM EST TC from pt requesting medication refill. Medications needing refill : zolpidem (Ambien) 10 MG tablet To be sent to: [facility]/pharmacy #[id number] - [place], [place] - [address] [place] [address] documented in this encounter Plan of Treatment Upcoming Encounters Date Type Department Care Team (Late st Contact Info) Description 06/03/2024 10:00 AM EDT Clinical Support [facility] MEDICINE [address] [place] [address] Heidi Castañeda RN documented as of this encounter Visit Diagnoses Diagnosis Other specified anxiety disorders documented in this encounter Additional Health Concerns Assessment Noted Time PHQ-9 Depression Total Score: 5 08/15/19 24 9:39 AM EDT documented as of this encounter Care Teams Qa Engineer Relationship Specialty Start Date End Date Bianca Shearer MD [address] [place] [address] PCP - General Family Medicine 11/26/21 David Clark FNP [address] [place] [address] Nurse Practitioner Family Medicine 01/24/23 documented as of this encounter
--- OUTSIDE RECORDS SUMMARY | 2024-04-11 15:36 | XMS_ITS | Encounter Summary ---
Author Organization [employer] Address [address] [facility] 7t [place] [address] Care Team Providers Care Diagnostic Assistant Name Role Phone Bianca Shearer MD Primary Care Provider [phone] David Clark Unavailable Unavailable Reason for Visit * Reason Comments Diabetes Encounter Details Date Type Department Care Team ([facility] st Contact Info) Description 04/11/2024 11:00 AM EST Office Visit [facility] MEDICINE [address] [place], [place] [phone] Bianca Shearer MD [address] [place], [place] [phone] Bleeds easily ([facility]) (Primary Dx); Type 2 diabetes mellitus without complication, without long-term current use of insulin ([facility]); Type 2 diabetes mellitus with hyperglycemia, unspecified whether [place] [facility] insulin use ([facility]) Social History Tobacco Use Types Packs/Day Years Used Date Smoking Tobacco: Former Cigarettes Q uit: 10/11/2021 Smokeless Tobacco: Never Tobacco Cessation:Counseling Given: Not Answered Alcohol Use Standard Drinks/Week Comments Not Asked [...] AM EDT documented as of this encounter Last Filed Vital Signs Vital Sign Reading Time Taken Comments Blood Pressure 129/92 04/11/2024 11:11 AM EST Pulse 89 04/11/2024 11:11 AM EST Temperature 36.2 ??C (97.1 ??F) 04/11/2024 11:[address] Respiratory Rate - - Oxygen Saturation 100% 04/11/2024 11:11 AM EST Inhaled Oxygen Concentration - - Weight 85.7 kg (189 lb) 04/11/2024 11:11 AM EST Height 165.1 cm (5' 5 ) 04/11/2024 11:11 AM EST Body Mass Index 31.45 04/11/2024 11:11 AM EST documented in this encounter Plan of Treatment Upcoming Encounters Date Type Department Care Team (Late st Contact Info) Description 06/03/2024 10:00 AM EDT Clinical Support [address] [address] Heidi Castañeda RN documented as of this encounter Procedures Procedure Name Priority Date/Time Associated Diagnosis Comments CBC WITH AUTO DIFFERENTIAL Routine 04/11/2024 11:41 AM EST Bleeds easily ([facility]) POCT GLYCATED HEMOGLOBIN, TOTAL Routine 04/11/2024 11:15 AM EST Type 2 diabetes mellitus without complication, without long-term current use of insulin ([facility]) POCT GLUCOSE Routine 04/11/2024 11:13 AM EST Type 2 diabetes mellitus without complication, without long-term current use of insulin ([facility]) documented in this encounter Results * CBC auto differential (04/11/2024 11:41 AM EST) White Blood Count 10.2 4.8 - 10.8 X10*3/uL [facility] Red Blood Count 4.68 4.20 - 5.50 X10*6/uL [facility] Hemoglobin 14.8 12.0 - 16.0 g/dl [facility] Hematocrit 42.5 37.0 - 47.0 % [facility] Mean Corpuscular Volume 90.8 80.0 - 98.0 fL [facility] Mean Corpuscular Hemoglobin 31.6 27.0 - 33.0 pg [facility] Mean Corpuscular HGB Conc 34.8 31.0 - 35.0 g/dl [facility] Red Cell Distribution Width 12.9 11.0 - 16.0 % [facility] Platelet Count 323 160 - 400 X10*3/uL [facility] Mean Platelet Volume 11.3 9.4 - 12.3 fL [facility] Neutrophils Percent Auto 55.3 45 - 73 % [facility] Imm Gran Pct Auto 0.3 0.0 - 0.4 % [facility] Lymphocytes Percent Auto 36.8 20 - 40 % [facility] Monocytes Percent Auto 5.5 2 - 11 % [facility] Eosinophils Percent Auto 1.9 0 - 4 % [facility] Basophils Percent Auto 0.2 0 - 2 % [facility] NRBC Pct Auto 0.0 0.0 - 0.2 /100WBC [facility] Neutrophils Absolute Auto 5.6 2.0 - 8.3 x10*3/uL [facility] Imm Gran Abs Auto 0.03 0.00 - 0.03 X10*3/uL [facility] Lymphocytes Absolute Auto 3.8 1.2 - 4.9 X10*3/uL [facility] Monocytes Absolute Auto 0.6 0.1 - 1.2 X10*3/uL [facility] Eosinophils Absolute Auto 0.2 0.0 - 0.4 X10*3/uL [facility] Basophils Absolute Auto 0.0 0.0 - 0.2 X10*3/uL [facility] NRBC Abs Auto 0.000 0.0 - 0.012 X10*3/uL [facility] Blood Venous blood specimen / Unknown 04/11/2024 11:41 AM EST 04/11/2024 12:55 PM EST Bianca Shearer MD LAB BLOOD ORDERABLES Final Res ult [facility] [address] [place] [phone] * (ABNORMAL) POCT HGB A1C (04/11/2024 11:15 AM EST) Hemoglobin A1C 9.5(A) 4.0 - 6.0 % QC Media Lot # [id number] Lot# Expiration Date , Blood 04/11/2024 11:1 5 AM EST Bianca Shearer MD POINT OF CARE TEST ENTER/EDIT ORDERABLES Final Result * (ABNORMAL) POCT Glucose (04/11/2024 11:13 AM EST) Glucose Blood, POC 209(A) 60 - 200 mg/dL QC Media Lot # [id number] Lot# Expiration Date ,025 Blood Capillary blood specimen / Unknown 04/11/2024 11:13 AM EST Bianca Shearer MD POINT OF CARE TEST ENTER/EDIT ORDERABLES Final Result documented in this encounter Visit Diagnoses Diagnosis Bleeds easily ([facility])- Primary Type 2 diabetes mellitus without complication, without long-term current use of insulin ([facility]) Type 2 diabetes mellitus with hyperglycemia, unspecified whether [facility] insulin use ([facility]) documented in this encounter Additional Health Concerns Assessment Noted Time PHQ-9 Depression Total Score: 5 08/15/19 24 9:39 AM EDT documented as of this encounter Care Teams Diagnostic Assistant Relationship Specialty Start Date End Date Bianca Shearer MD [address] [place] [address] PCP - General Family Medicine 11/26/21 David Clark FNP [address] [place] [address] Nurse Practitioner Family Medicine 01/24/23 documented as of this encounter
--- OUTSIDE RECORDS SUMMARY | 2024-04-11 15:36 | XMS_ITS | Encounter Summary ---
Author Organization [employer] [facility] Address [address] 7t [place] [address] Care Team Providers Care Engineer Geophysical Laboratory Name Role Phone Bianca Shearer MD Primary Care Provider [phone] David Clark Unavailable Unavailable Reason for Visit * Reason Comments Med Refill Encounter Details Date Type Department Care Team ([facility] Contact Info) Description 08/03/2022 Refill [facility] [address] [place], [place] [phone] Bianca Shearer MD [address] [place], [place] [phone] Gastroesophageal reflux disease without esophagitis Social History Tobacco Use Types Packs/Day Years Used Date Smoking Tobacco: Former Cigarettes Q uit: 10/11/2021 Smokeless Tobacco: Never Comments Unknown Sex and Gender Information Value Date Recorded Sex Assigned at Female 01/10/2022 10:18 AM EDT Legal Sex Female 10:18 AM EDT Gender Identity Female 01/10/2022 10:18 AM EDT Sexual Orientation Choose not to disclose 2021 10:18 AM EDT COVID-19 Exposure Response Date Recorded In the last 10 days, have yo u been in contact with someone who was confirmed or suspected to have Coronavirus/COVID-19? No / Unsure 07/25/2022 1:15 PM EDT documented as of this encounter Plan of Treatment Upcoming Encounters Date Type Department Care Team ([facility] Contact Info) Description 06/03/2024 10:00 AM EDT Clinical Support [facility] [address] [place] [address] [phone] Heidi Castañeda RN documented as of this encounter Visit Diagnoses Diagnosis Gastroesophageal reflux disease without esophagitis Esophageal reflux documented in this encounter Additional Health Concerns Assessment Noted Time PHQ-9 Depression Total Score: 4 07/01/19 23 9:23 AM EDT documented as of this encounter Care Teams Engineer Geophysical Laboratory Relationship Specialty Start Date End Date Bianca Shearer MD [address] [place] [address] PCP - General Family Medicine 11/26/21 David Clark FNP [address] [place] [address] Nurse Practitioner Family Medicine 01/24/23 documented as of this encounter
--- OUTSIDE RECORDS SUMMARY | 2024-04-11 15:36 | XMS_ITS | Encounter Summary ---
Author Organization [employer] Address [address] [facility] [address] 7t [place] [address] Care Team Providers Care Aluminum Pool Installer Name Role Phone Bianca Shearer MD Primary Care Provider [phone] David Clark Unavailable Unavailable Reason for Visit * Reason Comments Care Coordination CHW outreach for SDO H PT-1 and food needs-referral completed Encounter Details Date Type Department Care Team (Latest Contact Info) Description 04/02/2024 Patient Outreach [facility] [address] [place], [place] [phone] Bianca Shearer MD [address] [place], [place] [phone] Care Coordination (CHW outreach for SDOH PT-1 and food needs-referral completed /) Social History Tobacco Use Types Packs/Day Years [...] AM EDT documented as of this encounter Progress Notes * Amadou Harman - 04/02/2024 9:54 AM EST CHW Amadou Harman, placed outbound call to patient for assistance with SDOH as a referral was received by the provider. Patient's name and were confirmed. Patient screened positive for the following SDOH food insecurities. CHW referral patient to the local list of pantries in the area for help. PT-1 requested was send out in behalf of patient for futures appt. Patient verbalizes understandin g, and able to agree with plan to follow up. Patient educated on extended clinic hours on Mondays through Wednesdays, and Walk-In Urgent Care Located in [facility] of [facility]. Patient provided with after-hours line for [facility], , which offer night time triage service and option to transfer to construction director provider if needed. documented in this encounter Plan of Treatment Upcoming Encounters Date Type Department Care Team (Late st Contact Info) Description 06/03/2024 10:00 AM EDT Clinical Support [facility] [address] [place] [address] Heidi Castañeda, RN documented as of this encounter Visit Diagnoses Not on filedocumented in this encounter Additional Health Concerns Assessment Noted Time PHQ-9 Depression Total Score: 5 08/15/19 9:39 AM EDT documented as of this encounter Care Teams Aluminum Pool Installer Relationship Specialty Start Date End Date Bianca Shearer MD [address] [place] [phone] PCP - General Family Medicine 11/26/21 David Clark FNP [address] [place] [address] Nurse Practitioner Family Medicine 01/24/23 documented as of this encounter
--- OUTSIDE RECORDS SUMMARY | 2024-04-11 15:36 | XMS_ITS | Encounter Summary ---
Author Organization [employer] Address [address] [place] [address] Care Team Providers Care Outsole Tacker Name Role Phone Bianca Shearer MD Primary Care Provider [phone] David Clark Unavailable Unavailable Encounter Details Date Type Department Care Team (Latest Contact Info) Description 04/03/2024 Travel Social History Tobacco Use Types Packs/Day Years [...] Description 06/03/2024 10:00 AM EDT Clinical Support [facility] [address] [place] [phone] Heidi Castañeda, RN documented as of this encounter Visit Diagnoses Not on filedocumented in this encounter Additional Health Concerns Assessment Noted Time PHQ-9 Depression Total Score: 5 08/15/19 24 9:39 AM EDT documented as of this encounter Care Teams Outsole Tacker Relationship Specialty Start Date End Date Bianca Shearer MD [address] [place] [address] PCP - General Family Medicine 11/26/21 David Clark FNP [address] [place] [address] Nurse Practitioner Family Medicine 01/24/23 documented as of this encounter
--- OUTSIDE RECORDS SUMMARY | 2024-04-11 15:36 | XMS_ITS | Encounter Summary ---
Author Organization [email or web address] Address [address] [place] [address] Care Team Providers Care Cotton Sampler Name Role Phone Bianca Shearer MD Primary Care Provider [phone] David Clark Unavailable Unavailable Encounter Details Date Type Department Care Team (Latest Contact Info) Description 04/11/2024 Travel Social History Tobacco Use Types Packs/Day [...] Description 06/03/2024 10:00 AM EDT Clinical Support [facility] [address] [place] [phone] Heidi Castañeda, RN documented as of this encounter Visit Diagnoses Not on filedocumented in this encounter Additional Health Concerns Assessment Noted Time PHQ-9 Depression Total Score: 5 08/15/19 24 9:39 AM EDT documented as of this encounter Care Teams Cotton Sampler Relationship Specialty Start Date End Date Bianca Shearer MD [address] [place] [phone] PCP - General Family Medicine 11/26/21 David Clark FNP [address] [place] [address] Nurse Practitioner Family Medicine 01/24/23 documented as of this encounter
--- OUTSIDE RECORDS SUMMARY | 2024-04-11 15:36 | XMS_ITS | Encounter Summary ---
Author Organization [employer] Address [address] 7[address] [place] [address] Care Team Providers Care Transplant Nurse Name Role Phone Bianca Shearer MD Primary Care Provider [phone] David Clark Unavailable Unavailable Reason for Visit * Reason Comments Pre-visit Planning Encounter Details Date Type Department Care Team ([facility] st Contact Info) Description 04/02/2024 Patient Outreach [facility] [address] [place], [place] [phone] Bianca Shearer MD [address] [place], [place] [phone] Pre-visit Planning Social History Tobacco Use Types Packs/Day Years [...] as of this encounter Progress Notes * Nu Gama - 04/02/2024 9:25 AM EST CC Nu placed successful outbound call to patient for pre-visit planning. Patient name and confirmed. Patient confirms appt date and time, and has transportation arrangements. Biggest concern for appointment at this time is diabetes Appropriate screening completed in anticipation of appointment. Patient advised to bring to appointment a photo id and insurance card, SDOH positive. Patient looking for assistance with transportation Referral will be placed. documented in this encounter Plan of Treatment Upcoming Encounters Date Type Department Care Team (Late st Contact Info) Description 06/03/2024 10:00 AM EDT Clinical Support [facility] [address] [place] [address] Heidi Castañeda RN documented as of this encounter Visit Diagnoses Not on filedocumented in this encounter Additional Health Concerns Assessment Noted Time PHQ-9 Depression Total Score: 5 08/15/19 9:39 AM EDT documented as of this encounter Care Teams Transplant Nurse Relationship Specialty Start Date End Date Bianca Shearer MD [address] [place] [address] PCP - General Family Medicine 11/26/21 David Clark FNP [address] [place] [address] Nurse Practitioner Family Medicine 01/24/23 documented as of this encounter
--- OUTSIDE RECORDS SUMMARY | 2024-04-11 15:36 | XMS_ITS | Encounter Summary ---
Author Organization [employer] Address [address] 7[address] [place] [address] Care Team Providers Care Joint Filler Name Role Phone Bianca Shearer MD Primary Care Provider David Clark Unavailable Unavailable Reason for Visit * Reason Comments Sore Throat Diabetes Encounter Details Date Type Department Care Team ([facility] st Contact Info) Description 04/03/2024 10:40 AM EST Office Visit [facility] [address] [place], [place] [phone] Emily Sheikh DO [address] [place], [place] [phone] Type 2 diabetes mellitus without complication, without long-term current use of insulin ([facility]) (Primary Dx); Globus sensation Social History Tobacco Use Types Packs/Day Years [...] the past 12 months, has t he Vasopharm, gas, oil or water company threatened to [...] Sign Reading Time Taken Comments Blood Pressure 145/88 04/03/2024 10:52 AM EST Pulse 91 04/03/2024 10:52 AM EST Temperature 36.8 ??C (98.3 ??F) 04/03/2024 10:[address] Respiratory Rate 18 04/03/2024 10:52 AM EST Oxygen Saturation 96% 04/03/2024 10:52 AM EST Inhaled Oxygen Concentration - - Weight 85.7 kg (189 lb) 04/03/2024 10:52 AM EST Height - - Body Mass Index 33.48 11/08/2023 2:57 PM EDT documented in this encounter Progress Notes * Emily Sheikh DO - 04/03/2024 10:40 AM EST SUBJECTIVE: Farnaz Rainey is a 53 y.o. year old female who presents for sick visit . She comes to [place] c/o ST for a few days. She feels like something is stuck in her throat. She says that this used to happen when she smoked but she stopped smoking. She says she gets nasal congestion sometimes. She denies any ear pain. She has not had any fever. No N/V or diarrhea. She thinks that she has some allergy meds at home she was given before but they're old. She suffers from acid reflux. She has prilosec which she takes prn and helps with her sx. She used to get pepcid which she feels helped to control her sx better. She is also concerned about her sugar. She says that her sugars used to be in the 110s and 120s but since her fasting sugars have been in the 180s and 200s and she can't get them to go down. Her bedtime sugars are in the low to mid 200s. She uses metformin daily and tried increasing to 2 tabs but didn't not notice a change in her sugars. She thinks that she has gained some weight which has worsened her sugars. History provided by: Patient paraprofessional interpreter used: No Sore Throat This is a new problem. The current episode started in the past 7 days. The problem has been unchanged. There has been no fever. The pain is mild. Associated symptoms include coughing. Pertinent negatives include no abdominal pain, congestion, diarrhea, ear discharge, ear pain, headaches, hoarse voice, neck pain, shortness of breath, trouble swallowing or vomiting. She has tried nothing for the symptoms. Review of Systems Constitutional: Negative for chills and fever. HENT: Positive for sore throat. Negative for congestion, ear discharge, ear pain, hoarse voice and trouble swallowing. Respiratory: Positive for cough. Negative for shortness of breath. Cardiovascular: Negative for chest pain and leg swelling. Gastrointestinal: Negative for abdominal pain, blood in stool, diarrhea, nausea and vomiting. Musculoskeletal: Negative for neck pain. Skin: Negative for rash. Neurological: Negative for headaches. Patient Active Problem List Diagnosis Anxiety disorder Gastroesophageal reflux disease without esophagitis Insomnia Pruritus Pure hypercholesterolemia Mood disorder (CMS/HCC) Tobacco dependence syndrome Type 2 diabetes mellitus without complication (CMS/HCC) Subacute cough Bacterial vaginosis Vaginal discharge Chronic pain of both knees Elevated blood pressure reading in office without diagnosis of hypertension Perimenopause No Known Allergies OBJECTIVE Vitals: 04/03/24 1052 BP: (!) 145/88 BP Location: Left arm Patient Position: Sitting BP Cuff Size: Adult Pulse: 91 Resp: 18 Temp: 98.3 ??F (36.8 ??C) TempSrc: Oral SpO2: 96% Weight: 189 lb (85.7 kg) Physical Exam Constitutional: General: She is not in acute distress. Appearance: Normal appearance. HENT: Right Ear: Tympanic membrane, ear canal and external ear normal. Left Ear: Tympanic membrane, ear canal and external ear normal. Nose: Mucosal edema and congestion present. Right Turbinates: Swollen. Left Turbinates: Swollen. Mouth/Throat: Pharynx: Posterior oropharyngeal erythema present. No oropharyngeal exudate. Cardiovascular: Rate and Rhythm: Normal rate and regular rhythm. Heart sounds: Normal heart sounds. No murmur heard. Pulmonary: Effort: Pulmonary effort is normal. Breath sounds: Normal breath sounds. No wheezing or rhonchi. Abdominal: General: Bowel sounds are normal. Palpations: Abdomen is soft. There is no mass. Tenderness: There is no abdominal tenderness. Musculoskeletal: Cervical back: Neck supple. No tenderness. Lymphadenopathy: Cervical: No cervical adenopathy. Neurological: General: No focal deficit present. Mental Status: She is alert and oriented to person, place, and time. Cranial Nerves: No cranial nerve deficit. Motor: No weakness. Gait: Gait normal. Psychiatric: Mood and Affect: Mood normal. Office Visit on 04/03/2024 Component Date Value Ref Range Status Influenza A 04/03/2024 Negative Negative, Indeterminate Final QC Media Lot # 04/03/2024 [id number] Final Lot# Expiration Date 04/03/2024 [id number] Final Influenza B 04/03/2024 Negative Negative, Indeterminate Final QC Media Lot # 04/03/2024 [id number] Final Lot# Expiration Date 04/03/2024 [id number] Final Rapid COVID Ag 04/03/2024 Negative Final QC Media Lot # 04/03/2024 [id number] Corrected Lot# Expiration Date 04/03/2024 6,222,[id number] Corrected Rapid Strep A Screen 04/03/2024 Negative Negative, None Detected Final QC Media Lot # 04/03/2024 [id number] Final Lot# Expiration Date 04/03/2024 [id number] Final Hemoglobin A1C 04/03/2024 9.5 (A) 4.0 - 6.0 % Final QC Media Lot # 04/03/2024 [id number] Final Lot# Expiration Date 04/03/2024 [id number],[id number] Final Glucose Blood, POC 04/03/2024 268 (A) 60 - 200 mg/dL Final QC Media Lot # 04/03/2024 [id number] Final Lot# Expiration Date 04/03/2024 [id number] Final ASSESSMENT/PLAN Diagnoses and all orders for this visit: Type 2 diabetes mellitus without complication, without long-term current use of insulin ([facility]) A1c up from 6.8 in setting of > 15lbs weight gain since last PCP visit -increase metformin to 500mg BID -she agrees to start trulicity weekly, reviewed potential side effects with patient -cont regular BS monitoring and bring glucometer to PCP visit - POCT A1C - POCT glucose manually resulted Globus sensation Likely multifactorial -provided reassurance -start zyrtec and flonase daily -change omeprazole to famotidine BID -consider eval with ENT if no improvement - Influenza A (ID NOW Rapid Molecular) - Influenza B (ID NOW Rapid Molecular) - POCT Rapid COVID Ag - POCT rapid strep A manually resulted F/U with PCP next week as scheduled or sooner prn Current Outpatient Medications: Alcohol Swabs (Alcohol Prep) pads, Use as directed, Disp: , Rfl: Alcohol Swabs ([employer] Prep) 70 % pads, USE DIRECTED TO TEST BLOOD SUGAR, Disp: 100 each, Rfl: 11 atorvastatin (Lipitor) 20 MG tablet, TAKE 1 TABLET BY MOUTH EVERY DAY, Disp: 90 tablet, Rfl: 3 baclofen (Lioresal) 10 MG tablet, TAKE 1 TABLET BY MOUTH TWICE A DAY, Disp: 180 tablet, Rfl: 2 Blood Glucose Monitoring Suppl (FreeStyle Lite) device, Inject 1 each under the skin 2 times daily., Disp: 1 each, Rfl: 0 Blood Glucose Monitoring Suppl (FreeStyle Lite) w/Device kit, 1 kit 2 times daily. To monitor bloodglucose, Disp: 1 kit, Rfl: 0 calcium carbonate (Os-Alberto) 1250 (500 Ca) MG tablet, take one pill with food daily, Disp: , Rfl: cetirizine (ZyrTEC) 10 MG tablet, Take 1 tablet (10 mg) by mouth Once per day., Disp: 90 tablet, Rfl: 3 cholecalciferol (Vitamin D-3) 50 MCG (2000 UT) tablet, TAKE 1 TABLET BY MOUTH EVERY DAY, Disp: 90 tablet, Rfl: 3 Dulaglutide (Trulicity) 0.75 MG/0.5ML solution auto-injector, Inject 0.75 mg under the skin 1 (one)time per week., Disp: 2 mL, Rfl: 3 famotidine (Pepcid) 20 MG tablet, Take 1 tablet (20 mg) by mouth 2 times daily., Disp: 180 tablet, Rfl: 3 fluticasone (Flonase) 50 MCG/ACT nasal spray, Administer 2 sprays into each nostril Once per day. Shake gently. Before first use, prime pump. After use, clean tip and replace cap., Disp: 48 g, Rfl: 3 FREESTYLE LITE test strip, USE ONE STRIP TO TEST BLOOD SUGAR TWICE DAILY, Disp: 100 strip, Rfl: 5 hydrocortisone 1 % cream, MIX WITH CERAVE AND APPLY A THIN LAYER TOPICALLY TO THE AFFECTED AREA IMMEDIATELY AFTER BATHING, Disp: 112 g, Rfl: 3 hydrOXYzine HCl (Atarax) 50 MG tablet, TAKE 1 TABLET BY MOUTH EVERY 8 HOURS NEEDED FOR ITCHING OR SLEEP, Disp: 60 tablet, Rfl: 11 metFORMIN (Glucophage) 500 MG tablet, Take 2 tablets (1,000 mg) by mouth with breakfast and with evening meal., Disp: 360 tablet, Rfl: 3 naloxone (Narcan) 4 mg/0.1 mL nasal spray, Administer 1 spray (4 mg) into affected nostril(s) if needed for opioid reversal., Disp: 2 each, Rfl: 2 PARoxetine (Paxil) 10 MG tablet, Take 1 tablet (10 mg) by mouth in the evening., Disp: 90 tablet, Rfl: 3 QUEtiapine (SEROquel) 100 MG tablet, Take 1 tablet (100 mg) by mouth in the morning., Disp: 90 tablet, Rfl: 3 QUEtiapine (SEROquel) 200 MG tablet, Take 2 tablets (400 mg) by mouth at bedtime., Disp: 180 tablet, Rfl: 3 traMADol (Ultram) 50 MG tablet, Take 1 tablet (50 mg) by mouth every 8 (eight) hours if needed for severe pain for up to 28 days., Disp: 84 tablet, Rfl: 0 triamcinolone (Kenalog) 0.1 % cream, APPLY THIN COAT TO AFFECTED AREA TWICE A DAY, Disp: 90 g, Rfl:3 TRUEplus Lancets 33G misc, USE TO TEST BLOOD SUGAR TWICE A DAY, Disp: 100 each, Rfl: 5 zolpidem (Ambien) 10 MG tablet, TAKE 1 TABLET BY MOUTH AT BEDTIME NEEDED FOR SLEEP, Disp: 30 tablet, Rfl: 0 documented in this encounter Plan of Treatment Upcoming Encounters Date Type Department Care Team (Late st Contact Info) Description 06/03/2024 10:00 AM EDT Clinical Support [address] [phone] Heidi Castañeda RN documented as of this encounter Procedures Procedure Name Priority Date/Time Associated Diagnosis Comments POCT INFLUENZA B (ID NOW RAPID MOLECULAR) Routine 04/03/2024 11:37 AM EST Globus sensation POCT INFLUENZA A (ID NOW RAPID MOLECULAR) Routine 04/03/2024 11:37 AM EST Globus sensation POCT RAPID COVID ANTIGEN Routine 04/03/2024 11:37 AM EST Globus sensation POCT RAPID STREP A Routine 04/03/2024 11 :37 AM EST Globus sensation POCT GLYCATED HEMOGLOBIN, TOTAL Routine 04/03/2024 11:35 AM EST Type 2 diabetes mellitus without complication, without long-term current use of insulin ([facility]) POCT GLUCOSE Routine 04/03/2024 11:35 AM EST Type 2 diabetes mellitus without complication, without long-term current use of insulin ([facility]) documented in this encounter Results * POCT rapid strep A manually resulted (04/03/2024 11:37 AM EST) Pathologist [facility] Rapid Strep A Screen Negative Negative, None Detected QC Media Lot # [id number] Lot# Expiration Date ,026 Swab 04/03/2024 11:3 7 AM EST us Emily Sheikh DO POINT OF CARE TEST ENTER/PHILIPP T ORDERABLES Edited Result - Final * POCT Rapid COVID Ag (04/03/2024 11:37 AM EST) Rapid COVID Ag Negative QC Media Lot # [id number] Lot# Expiration Date Swab 04/03/2024 11:3 7 AM EST us Emily Quintanillaodalys DO POINT OF CARE TEST ENTER/PHILIPP T ORDERABLES Edited Result - Final * Influenza B (ID NOW Rapid Molecular) (04/03/2024 11:37 AM EST) Influenza B Negative Negative, Indeterminate [facility] QC Media Lot # [id number] [facility] Lot# Expiration Date [facility] Swab 04/03/2024 11:3 7 AM EST us Emily Sheikh DO POINT OF CARE TEST ENTER/PHILIPP T ORDERABLES Final Result Performing Organization Address [facility] Co de Phone Number [facility] [address] [place] [phone] * Influenza A (ID NOW Rapid Molecular) (04/03/2024 11:37 AM EST) Influenza A Negative Negative, Indeterminate [facility] QC Media Lot # [id number] [facility] Lot# Expiration Date [facility] Swab 04/03/2024 11:3 7 AM EST us Emily Sheikh DO POINT OF CARE TEST ENTER/PHILIPP T ORDERABLES Final Result [facility] [address] [place] [address] [phone] * (ABNORMAL) POCT glucose manually resulted (04/03/2024 11:35 AM EST) Glucose Blood, POC 268(A) 60 - 200 mg/dL QC Media Lot # [id number] Lot# Expiration Date ,025 Blood Capillary blood specimen / Unknown 04/03/2024 11:35 AM EST Emily Kori DO POINT OF CARE TEST ENTER/PHILIPP T ORDERABLES Final Result * (ABNORMAL) POCT A1C (04/03/2024 11:35 AM EST) Hemoglobin A1C 9.5(A) 4.0 - 6.0 % QC Media Lot # [id number] Lot# Expiration Date 8345,026 Blood 04/03/2024 11:3 5 AM EST Emily Sheikh DO POINT OF CARE TEST ENTER/PHILIPP T ORDERABLES Final Result documented in this encounter Visit Diagnoses Diagnosis Type 2 diabetes mellitus without complication, without long-term current use of insulin ([facility])- Primary Globus sensation Gastrointestinal malfunction arising from mental factors documented in this encounter Additional Health Concerns Assessment Noted Time PHQ-9 Depression Total Score: 5 08/15/19 24 9:39 AM EDT documented as of this encounter Care Teams Joint Filler Relationship Specialty Start Date End Date Bianca Shearer MD [address] [place] [address] PCP - General Family Medicine 11/26/21 David Clark FNP [address] [place] [address] Nurse Practitioner Family Medicine 01/24/23 documented as of this encounter
--- OUTSIDE RECORDS SUMMARY | 2024-04-11 15:36 | XMS_ITS | Encounter Summary ---
Author Organization [employer] Address [address] [place] [address] Care Team Providers Care Longshore Equipment Operator Name Role Phone Bianca Shearer MD Primary Care Provider [phone] David Clark Unavailable Unavailable Reason for Visit * Reason Onset Date Comments Recommend HOG STOMACH PREPARER Tier 3 04/03/2024 Encounter Details Date Type Department Care Team (Late st Contact Info) Description 04/03/2024 Telephone [facility] [address] [place] [address] Heidi Castañeda, RN Recommend HOG STOMACH PREPARER Tier 3 Social History Tobacco Use Types Packs/Day Years [...] Telephone Encounter - Heidi Castañeda RN - 04/03/2024 7:30 AM EST What HOG STOMACH PREPARER Tier would you like this patient to be? I recommend Tier 3, please let me know if you agree or would rather patient be in another HOG STOMACH PREPARER Tier. Tier 1 = HIGH RISK, Monthly HOG STOMACH PREPARER visits Tier 2 = MODerate RISK, Q3 Month visits Tier 3 = LOW RISK = Q4-6 month visits documented in this encounter Plan of Treatment Upcoming Encounters Date Type Department Care Team (Late st Contact Info) Description 06/03/2024 10:00 AM EDT Clinical Support [facility] [address] [place] [address] Heidi Castañeda, RN documented as of this encounter Visit Diagnoses Not on filedocumented in this encounter Additional Health Concerns Assessment Noted Time PHQ-9 Depression Total Score: 5 08/15/19 24 9:39 AM EDT documented as of this encounter Care Teams Longshore Equipment Operator Relationship Specialty Start Date End Date Bianca Shearer MD [address] [place] [address] PCP - General Family Medicine 11/26/21 David Clark FNP [address] [place] [address] Nurse Practitioner Family Medicine 01/24/23 documented as of this encounter
--- OUTSIDE RECORDS SUMMARY | 2024-04-11 15:36 | XMS_ITS | Clinical Summary ---
Author Organization [employer] Address [address] [place] [address] Care Team Providers Care Respiratory Support Technician Name Role Phone Bianca Shearer MD Primary Care Provider David Clark Unavailable Unavailable Allergies No known active allergies Medications calcium carbonate (Os-Alberto) 1250 (500 Ca) MG tablet take one pill with food daily 01/02/20 21 Active Alcohol Swabs (Alcohol Prep) pads Use as directed Active Blood Glucose Monitoring Suppl (FreeStyle Lite) w/Device kitIndications :Type 2 diabetes mellitus without complication, unspecified whether shelter insulin use ([facility]) 1 kit 2 times daily. To monitor blood glucose 1 kit 07/26/19 23 Active naloxone (Narcan) 4 mg/0.1 mL nasal spray Administer 1 spray (4 mg) into affected nostril(s) if needed for opioid reversal. 2 each 2 09/27/19 23 Active PARoxetine (Paxil) 10 MG tablet Take 1 tablet (10 mg) by mouth in the evening. 90 tablet 3 07/14/19 24 025 Active TRUEplus Lancets 33G miscIndication s:Type 2 diabetes mellitus without complication, without long-term current use of insulin ([facility]) USE TO TEST BLOOD SUGAR TWICE A DAY 100 each 5 08/04/19 24 Active hydrOXYzine HCl (Atarax) 50 MG tabletIndicati ons:Pruritus TAKE 1 TABLET BY MOUTH EVERY 8 HOURS NEEDED FOR ITCHING OR SLEEP 60 tablet 11 08/15/19 24 Active QUEtiapine (SEROquel) 100 MG tabletIndicati ons:Other specified anxiety disorders Take 1 tablet (100 mg) by mouth in the morning. 90 tablet 3 08/15/19 24 Active QUEtiapine (SEROquel) 200 MG tablet Take 2 tablets (400 mg) by mouth at bedtime. 180 tablet 3 08/15/19 24 Active Blood Glucose Monitoring Suppl (FreeStyle Lite) device Inject 1 each under the skin 2 times daily. 1 each 08/15/19 24 Active cholecalcifero l (Vitamin D-3) 50 MCG (2000 UT) tablet TAKE 1 TABLET BY MOUTH EVERY DAY 90 tablet 3 12/04/19 24 Active triamcinolone (Kenalog) 0.1 % cream APPLY THIN COAT TO AFFECTED AREA TWICE A DAY 90 g 3 12/04/19 24 Active atorvastatin (Lipitor) 20 MG tablet TAKE 1 TABLET BY MOUTH EVERY DAY 90 tablet 3 12/04/19 24 Active Alcohol Swabs ([facility] Prep) 70 % pads USE DIRECTED TO TEST BLOOD SUGAR 100 each 11 01/02/20 24 Active hydrocortisone 1 % cream MIX WITH CERAVE AND APPLY A THIN LAYER TOPICALLY TO THE AFFECTED AREA IMMEDIATELY AFTER BATHING 112 g 3 02/02/20 24 Active baclofen (Lioresal) 10 MG tablet TAKE 1 TABLET BY MOUTH TWICE A DAY 180 tablet 2 02/02/20 24 Active zolpidem (Ambien) 10 MG tabletIndicati ons:Other specified anxiety disorders TAKE 1 TABLET BY MOUTH AT BEDTIME NEEDED FOR SLEEP 30 tablet 03/29/19 25 Active traMADol (Ultram) 50 MG tabletIndicati ons:Chronic pain of right knee Take 1 tablet (50 mg) by mouth every 8 (eight) hours if needed for severe pain for up to 28 days. 84 tablet 03/29/19 25 025 Active cetirizine (ZyrTEC) 10 MG tablet Take 1 tablet (10 mg) by mouth Once per day. 90 tablet 3 04/03/19 25 026 Active famotidine (Pepcid) 20 MG tablet Take 1 tablet (20 mg) by mouth 2 times daily. 180 tablet 3 04/03/19 25 026 Active fluticasone (Flonase) 50 MCG/ACT nasal spray Administer 2 sprays into each nostril Once per day. Shake gently. Before first use, prime pump. After use, clean tip and replace cap. 48 g 3 04/03/19 25 026 Active metFORMIN (Glucophage) 500 MG tablet Take 2 tablets (1,000 mg) by mouth with breakfast and with evening meal. 360 tablet 3 04/03/19 25 026 Active glucose blood (FREESTYLE LITE) test stripIndicatio ns:Type 2 diabetes mellitus with hyperglycemia, unspecified whether shelter insulin use ([facility]) Use one strip to test blood sugar twice daily 100 strip 5 04/11/19 25 Active Dulaglutide (Trulicity) 1.5 MG/0.5ML solution auto-injector Inject 1.5 mg under the skin 1 (one) time per week. 2 mL 3 04/11/19 25 Active loratadine (Claritin) 10 MG tabletIndicati ons:Insect stings, accidental or unintentional, initial encounter Take 1 tablet (10 mg) by mouth if needed each day for allergies. 90 tablet 1 11/04/19 23 025 Discontinued(I neffective) FREESTYLE LITE test stripIndicatio ns:Type 2 diabetes mellitus with hyperglycemia, unspecified whether terminal supervisor insulin use ([facility]) USE ONE STRIP TO TEST BLOOD SUGAR TWICE DAILY 100 strip 5 08/21/19 24 025 Discontinued(R eorder (will not trigger notification to Pharmacy)) metFORMIN (Glucophage) 500 MG tablet TAKE 1 TABLET BY MOUTH EVERY DAY WITH DINNER 90 tablet 3 10/02/19 24 025 Discontinued(R eorder (will not trigger notification to Pharmacy)) omeprazole (PriLOSEC) [address] capsuleIndicat ions:Gastroeso phageal reflux disease without esophagitis TAKE 1 CAPSULE BY MOUTH BEFORE BREAKFAST 90 capsule 3 12/04/19 24 025 Discontinued(I neffective) zolpidem (Ambien) 10 MG tabletIndicati ons:Other specified anxiety disorders TAKE 1 TABLET BY MOUTH AT BEDTIME NEEDED FOR SLEEP 30 tablet 02/29/20 24 025 Discontinued(R eorder (will not trigger notification to Pharmacy)) traMADol (Ultram) 50 MG tabletIndicati ons:Chronic pain of right knee Take 1 tablet (50 mg) by mouth every 8 (eight) hours if needed for severe pain for up to 28 days. Do not start before March 01, 2024. 84 tablet 03/01/20 025 Discontinued(R eorder (will not trigger notification to Pharmacy)) metFORMIN (Glucophage) 500 MG tablet Take 2 tablets (1,000 mg) by mouth with breakfast and with evening meal. 360 tablet 04/03/19 025 Discontinued(R eorder (will not trigger notification to Pharmacy)) Dulaglutide (Trulicity) 0.75 MG/0.5ML solution auto-injector Inject 0.75 mg under the skin 1 (one) time per week. 2 mL 04/03/19 025 Discontinued(R eorder (will not trigger notification to Pharmacy)) cetirizine (ZyrTEC) 10 MG tablet Take 1 tablet (10 mg) by mouth Once per day. 90 tablet 04/03/19 025 Discontinued(R eorder (will not trigger notification to Pharmacy)) fluticasone (Flonase) 50 MCG/ACT nasal spray Administer 2 sprays into each nostril Once per day. Shake gently. Before first use, prime pump. After use, clean tip and replace cap. 48 g 04/03/19 025 Discontinued(R eorder (will not trigger notification to Pharmacy)) famotidine (Pepcid) 20 MG tablet Take 1 tablet (20 mg) by mouth 2 times daily. 180 tablet 04/03/19 025 Discontinued(R eorder (will not trigger notification to Pharmacy)) Dulaglutide (Trulicity) 0.75 MG/0.5ML solution auto-injector Inject 0.75 mg under the skin 1 (one) time per week. 2 mL 04/03/19 025 Discontinued Active Problems Problem Noted Date Diagnosed Date Perimenopause 07/14/2023 Assessment & Plan (07/14/2023 4:01 PM EDT): Less than one year since last period Will treat with herbal remedies purchased OTC at pharmacy and Paxil 10mg nightly To monitor cycles, if greater than one year without periods, and vasomotor symptoms are bothersome still, can treat with HRT Chronic pain of both knees 04/25/2023 Assessment & Plan (04/25/2023 9:32 PM EST): Tramadol prn Elevated blood pressure read ing in office without diagnosis of hypertension 04/25/2023 Assessment & Plan (04/25/2023 9:34 PM EST): Recheck 136/88 Review of past two years of clinic data shows <140/90 at almost all visits Will continue to monitor, start ACEi/ARB if needed Subacute cough 04/22/2022 Bacterial vaginosis 04/22/2022 Vaginal discharge 04/22/2022 Pruritus 02/12/2022 Mood disorder 02/12/2022 Type 2 diabetes mellitus without complication Assessment & Plan (11/09/2023 2:19 PM EDT): Current A1c: 6.8 Referred to [facility] and Erin Figueroa for fresh food, she would like to cook more for herself BMP: Lab Results Component Value Date CREATININE 0.72 11/04/2022 K 3.5 11/04/2022 LDLCHOL 81 08/27/2021 Microalbumin: Foot Exam: Complete at follow up Eye Exam: Discuss at follow up Lipid panel: ASCVD: Calculate pending updated labs Statin: Yes ASA: No JADON/ARB: No Encouraged regular aerobic exercise for improved glycemic control Encouraged daily foot checks Encouraged lean protein snacks and to avoid foods high in sugar and simple carbohydrates Treatment Goals: A1c goal: <7% FBG goal: <130 2 hour post prandial goal: <180 Assessment & Plan (04/25/2023 9:32 PM EST): Current A1c: 6.6 BMP: Lab Results Component Value Date CREATININE 0.72 11/04/2022 K 3.5 11/04/2022 LDLCHOL 81 08/27/2021 Microalbumin: Foot Exam: Complete at follow up Eye Exam: Discuss at follow up Lipid panel: ASCVD: Calculate pending updated labs Statin: Yes ASA: No JADON/ARB: No Encouraged regular aerobic exercise for improved glycemic control Encouraged daily foot checks Encouraged lean protein snacks and to avoid foods high in sugar and simple carbohydrates Treatment Goals: A1c goal: <7% FBG goal: <130 2 hour post prandial goal: <180 Assessment & Plan (10/24/2022 9:11 AM EDT): Due for labs, ordered Anxiety disorder 12/15/2014 Assessment & Plan (08/15/2023 10:55 AM EDT): With intermittent psychotic delusions (insect infestation), did not mention today. She has had difficulty swallowing the Seroquel 400 mg tables, so will instead have Seroquel 200 mg to take 2 tabs at bedtime. Continue Seroquel 100 mg in the morning, Zolpidem 10 mg at bedtime prn, and Hydroxyzine 50 mg q 8 h and bedtime prn anxiety or sleep. Since this provider will be retiring, patient is nowtransferred back to PCP for further medication management. She agrees with the plan Assessment & Plan (06/20/2023 10:16 AM EDT): With intermittent psychotic delusions (insect infestation), did not mention today. Patient has independently decreased her dosing of Seroquel, r/t size of tablets, daytime sedation, and concern about weight gain. Currently only taking Seroquel 100 mg at bedtime, rather than prior dosing of 100 mg in the morning, and 400 mg at bedtime. She agrees that a slight increase would be beneficial but doesn't want to take large tablets. Therefore she will now have Seroquel 100 mg to take 2 tabs (total dose of 200 mg) at bedtime. Continue Zolpidem 10 mg at bedtime prn, and Hydroxyzine 50 mg q 8 h and bedtime prn anxiety or sleep. On 12/29/2022 provider informed patient that I would be retiring. Meanwhile, next appt with me in 6-8 weeks. She is not interested in counseling at this time. She agrees with the plan Assessment & Plan (03/21/2023 9:29 AM EST): With intermittent psychotic delusions (insect infestation), did not mention today. Cont current medications: Quetiapine 100 mg in the morning, Quetiapine 400 mg at bedtime, Zolpidem 10 mg at bedtime prn, and Hydroxyzine 50 mg q 8 h and bedtime prn anxiety or sleep. On 12/29/2022 provider informed patient that I would be retiring, and we will make every effort to transition psychiatric prescriber coverage prior to that time. F/U with me in 2-3 months. She agrees with the plan Assessment & Plan (12/29/2022 9:28 AM EDT): With intermittent psychotic delusions (insect infestation), did not mention today. Cont current medications. Today provider informed patient that I would be retiring within the next year, but we will make every effort to transition psychiatric prescriber coverage prior to that time. F/U with me in 3 months. She agrees with the plan Assessment & Plan (10/24/2022 9:11 AM EDT): Letter written for [facility] Assessment & Plan (09/27/2022 10:00 AM EDT): With intermittent psychotic delusions (insect infestation), did not mention today. Cont current medications. F/U with me in 3 months. I have reassured her that this provider has no plans to leave [facility] for at least another year, and we will make every effort to transition psychiatric prescriber coverage prior to that time. She agrees with the plan Assessment & Plan (06/30/2022 10:08 AM EDT): With intermittent psychotic delusions (insect infestation), did not mention today. Cont current medications. F/U with me in 3 months. She agrees with the plan Assessment & Plan (03/29/2022 3:16 PM EST): With intermittent psychotic delusions (insect infestation), did not mention today. Cont current medications. F/U with me in 3 months. She agrees with the plan Gastroesophageal reflux disease without esophagi tis 12/15/2014 Assessment & Plan (10/24/2022 9:11 AM EDT): Well controlled on Omeprazole, can attempt to wean off Insomnia 12/15/2014 Pure hypercholesterolemia 12/15/2014 Tobacco dependence syndrome 12/15/2014 Encounters Date Type Department Care Team Description 04/11/2024 11:00 AM EST Office Visit [facility] [place] [address] Bianca Shearer MD Bleeds easily ([facility]) (Primary Dx); Type 2 diabetes mellitus without complication, without long-term current use of insulin ([facility]); Type 2 diabetes mellitus with hyperglycemia, unspecified whether shelter insulin use ([facility]) 04/11/2024 Travel 04/03/2024 10:40 AM EST Office Visit [facility] [phone] Emily Sheikh DO Type 2 diabetes mellitus without complication, without long-term current use of insulin ([facility]) (Primary Dx); Globus sensation 04/03/2024 10:00 AM EST Clinical Support [address] [address] Heidi Castañeda RN Chronic pain of both knees (Primary Dx) 04/03/2024 Travel 04/03/[address] [phone] Heidi Castañeda, SARAH BETH Recommend INOCULATOR Tier 3 04/02/2024 Patient Outreach [address] [phone] Bianca Shearer MD Care Coordination ([facility] outreach for SDOH PT-1 and food needs-referral completed /) 04/02/2024 Patient Outreach [address] [phone] Bianca Shearer MD Pre-visit Planning 04/02/[address] [phone] Bianca Shearer MD Call Back Request 03/29/2024 Refill [facility] [address] [place] [phone] Bianca Shearer MD Chronic pain of right knee 03/29/2024 Refill [facility] [address] [place] [phone] Bianca Shearer MD Other specified anxiety disorders 03/20/2024 [address] [place] [address] Ellen Crain MA RS APPT 02/29/2024 Refill [facility] [address] [facility] [place] [address] Bianca Shearer MD Other specified anxiety disorders 02/29/2024 Refill [facility] [address] [place] [address] Bianca Shearer MD Chronic pain of right knee 02/27/2024 Telephone [facility] [address] [place] [address] Ellen Crain MA RECALL 02/26/2024 Telephone [facility] [address] [place] [address] Heidi Castañeda RN 02/05/2024 10:30 AM EST Clinical Support [facility] [address] [facility] [place] [address] Heidi Castañeda RN Chronic pain of both knees (Primary Dx) 02/05/2024 Travel 02/02/2024 Refill [facility] [address] [place] [address] Bianca Shearer MD 02/02/2024 Telephone [facility] [address] [place] [address] Bianca Shearer MD Med Refill 02/01/2024 Refill [facility] [address] [place] [address] Bianca Shearer MD Chronic pain of right knee 02/01/2024 Refill [facility] [address] [place] [address] Bianca Shearer MD 02/01/2024 Telephone [facility] [address] [place] [address] Bianca Shearer MD Med Refill 02/01/2024 Refill [facility] [address] [place] [address] Bianca Shearer MD Chronic pain of right knee from Last 3 Months Immunizations Name Administration Dates Next Due Hep A, Adult 12/21/2010,04/29/2010 Hep B, adult 12/19/2008, 8,12/19/2006,10/24 Influenza injectable quadriv alent IIV4 with preservative 01/06/2016,12/15/2014 Influenza injectable quadriv alent preservative free 04/21/2023,11/30/2020,01/31/2019,05/17,06/16/2014 Influenza, Split (incl. kandi fied surface antigen) 02/27/2012 Moderna Covid-19 Vaccine 12+ 06/23/2020,05/27/19 21 Moderna Covid-19 Vaccine 6+ Bivalent 01/15/2022 Pfizer Covid-19 Vaccine 12+ 03/09/2021 Pneumococcal Polysaccharide PPSV23 07/08/2013 TD (adult), 2 Lf tetanus tox oid, preservative free, adsorbed 10/11/2004 Tdap 06/08/2012 Social History Tobacco Use Types Packs/Day Years [...] is your housing situation today? I have dimaabdullahi talbot 04/17/[address] you [...] the past 12 months, has t he [employer], gas, oil or water company threatened to [...] not to disclose 2021 10:18 AM EDT Last Filed Vital Signs Vital Sign Reading Time Taken Comments Blood Pressure 129/92 04/11/2024 11:11 AM EST Pulse 89 04/11/2024 11:11 AM EST Temperature 36.2 ??C (97.1 ??F) 04/11/2024 11:[address] Respiratory Rate 18 04/03/2024 10:52 AM EST Oxygen Saturation 100% 04/11/2024 11:11 AM EST Inhaled Oxygen Concentration - - Weight 85.7 kg (189 lb) 04/11/2024 11:11 AM EST Height 165.1 cm (5' 5 ) 04/11/2024 11:11 AM EST Body Mass Index 31.45 04/11/2024 11:11 AM EST Plan of Treatment Upcoming Encounters Date Type Department Care Team (Late st Contact Info) Description 06/03/2024 10:00 AM EDT Clinical Support [facility] [address] [place] [phone] Heidi Castañeda, RN Health Maintenance Due Date Last Done Comments CT Colonography 1971 FIT DNA/Cologuard 1971 FIT 1971 FOBT 1971 Sigmoidoscopy 1971 Eye Exam 08/29/1981 Alcohol/Substance Use Screening 1983 Family Planning (PISQ) 08/29/1986 Pneumococcal Vaccine: 50+ Years (2 of 2 - PCV) 07/08/2014 07/08/2013 Zoster Vaccines (1 of 2) 08/29/2021 DTaP/Tdap/Td Vaccines (2 - Td or Tdap) 06/08/2022 06/08/2012, 10/11/2004 Diabetes: Urine Protein Screening 08/27/2022 08/27/2021, 10/28/2020 Lipid Panel 11/05/2023 11/04/2022, 08/11, 10/28/2020, Additional history exists COVID-19 Vaccine ( season) 2023 01/15/2022, 03/09/2021, 06/23/2020, Additional history exists Influenza Vaccine (#1) 2023 , 11/30/2020, 01/31/2019, Additional history exists Pap Smear 01/09/2024 01/08/2021 Diabetes: Foot Exam 06/19/2024 06/20/2023, 06/20/2023, 06/20/2023, Additional history exists Diabetes: Hemoglobin A1C 07/10/2024 025, 04/03/2024, 11/08/2023, Additional history exists Depression Screening 08/14/2024 08/15/2023, 08/15/19 24 Mammogram 11/23/2024 11/24/2023, 09/0 10/2022, 11/12/2021, Additional history exists SDOH Screening 04/02/2025 04/02/2024 Tobacco Screening 04/11/2025 04/11/2024 Cervical Cancer Screening 01/08/2026 HPV/Cotest 01/08/2026 01/08/2021 Colonoscopy 10/12/2026 Colorectal Cancer Screening 10/12/2026 RSV Patients and Patients Aged 60 years or older (1 - 1-dose 75+ series) 08/29/2046 Hepatitis B Vaccines Completed 12/19/2008, 04/18/2007, 12/19/2006, Additional history exists Hepatitis A Vaccines Completed 12/21/2010, 04/29/19 11 HIV Screening Completed 07/13/2021 Hepatitis C Screening Completed 07/13/2021 HIB Vaccines Aged Out No longer eligi ble based on patient's age to complete this topic HPV Vaccines Aged Out No longer eligi ble based on patient's age to complete this topic IPV Vaccines Aged Out No longer eligi ble based on patient's age to complete this topic Meningococcal Vaccine Aged Out No sonam negro eligible based on patient's age to complete this topic RSV under 20 months Aged Out No longe r eligible based on patient's age to complete this topic Rotavirus Vaccines Aged Out No longer eligible based on patient's age to complete this topic Procedures Procedure Name Priority Date/Time Associated Diagnosis Comments CBC WITH AUTO DIFFERENTIAL Routine 04/11/2024 11:41 AM EST Bleeds easily ([facility]) POCT GLYCATED HEMOGLOBIN, TOTAL Routine 04/11/2024 11:15 AM EST Type 2 diabetes mellitus without complication, without long-term current use of insulin ([facility]) POCT GLUCOSE Routine 04/11/2024 11:13 AM EST Type 2 diabetes mellitus without complication, without long-term current use of insulin ([facility]) POCT RAPID STREP A Routine 04/03/2024 11 :37 AM EST Globus sensation POCT RAPID COVID ANTIGEN Routine 04/03/2024 11:37 AM EST Globus sensation POCT INFLUENZA B (ID NOW RAPID MOLECULAR) Routine 04/03/2024 11:37 AM EST Globus sensation POCT INFLUENZA A (ID NOW RAPID MOLECULAR) Routine 04/03/2024 11:37 AM EST Globus sensation POCT GLUCOSE Routine 04/03/2024 11:35 AM EST Type 2 diabetes mellitus without complication, without long-term current use of insulin ([facility]) POCT GLYCATED HEMOGLOBIN, TOTAL Routine 04/03/2024 11:35 AM EST Type 2 diabetes mellitus without complication, without long-term current use of insulin ([facility]) POCT SHAWNA-14 URINE DRUG SCREEN Routine 04/03/2024 10:06 AM EST Chronic pain of both knees POCT SHAWNA-14 URINE DRUG SCREEN Routine 02/05/2024 10:41 AM EST Chronic pain of both knees BI MAMMOGRAM SCREENING TOMOSYNTHESIS BILATERAL Routine 11/24/2023 12:20 PM EDT LIPID PANEL, STANDARD Routine 11/04/2022 9:21 AM EDT Type 2 diabetes mellitus without complication, without long-term current use of insulin (CMS/HCC) ALBUMIN, RANDOM URINE W/CREATININE Routine 08/27/2021 9:10 AM EDT ZZZ HISTORICAL HEPATITIS C AB W/REFL TO HCV RNA, QN, PCR Routine 07/13/2021 11:10 AM EDT HIV 1/2 ANTIGEN/ANTIBODY, FOURTH GENERATION W/RFL Routine 07/13/2021 11:10 AM EDT THINPREP IMAGING PAP AND HPV MRNA E6/E7 WITH REFLEX TO HPV 16,18/45 Routine 01/08/2021 1:59 PM EDT from Last 3 Months or Most Recently Relevant to Health Maintenance Results * CBC auto differential (04/11/2024 11:41 AM EST) White Blood Count 10.2 4.8 - 10.8 X10*3/uL [facility] Red Blood Count 4.68 4.20 - 5.50 X10*6/uL [facility] Hemoglobin 14.8 12.0 - 16.0 g/dl [facility] Hematocrit 42.5 37.0 - 47.0 % [facility] Mean Corpuscular Volume 90.8 80.0 - 98.0 fL [facility] Mean Corpuscular Hemoglobin 31.6 27.0 - 33.0 pg [facility] Mean Corpuscular HGB Conc 34.8 31.0 - 35.0 g/dl [facility] Red Cell Distribution Width 12.9 11.0 - 16.0 % [facility] Platelet Count 323 160 - 400 X10*3/uL [facility] Mean Platelet Volume 11.3 9.4 - 12.3 fL [facility] Neutrophils Percent Auto 55.3 45 - 73 % [facility] Imm Gran Pct Auto 0.3 0.0 - 0.4 % [facility] Lymphocytes Percent Auto 36.8 20 - 40 % [facility] Monocytes Percent Auto 5.5 2 - 11 % [facility] Eosinophils Percent Auto 1.9 0 - 4 % [facility] Basophils Percent Auto 0.2 0 - 2 % [facility] NRBC Pct Auto 0.0 0.0 - 0.2 /100WBC [facility] Neutrophils Absolute Auto 5.6 2.0 - 8.3 x10*3/uL [facility] Imm Gran Abs Auto 0.03 0.00 - 0.03 X10*3/uL [facility] Lymphocytes Absolute Auto 3.8 1.2 - 4.9 X10*3/uL [facility] Monocytes Absolute Auto 0.6 0.1 - 1.2 X10*3/uL [facility] Eosinophils Absolute Auto 0.2 0.0 - 0.4 X10*3/uL [facility] Basophils Absolute Auto 0.0 0.0 - 0.2 X10*3/uL [facility] NRBC Abs Auto 0.000 0.0 - 0.012 X10*3/uL [facility] Blood Venous blood specimen / Unknown 04/11/2024 11:41 AM EST 04/11/2024 12:55 PM EST us Bianca Shearer MD LAB BLOOD ORDERABLES Final Res ult [facility] [address] [place] [address] [phone] * (ABNORMAL) POCT HGB A1C (04/11/2024 11:15 AM EST) Only the most recent of2 resultswithin the time period is included. Hemoglobin A1C 9.5(A) 4.0 - 6.0 % QC Media Lot # [id number] Lot# Expiration Date Blood 04/11/2024 11:1 5 AM EST Bianca Shearer MD POINT OF CARE TEST ENTER/EDIT ORDERABLES Final Result * (ABNORMAL) POCT Glucose (04/11/2024 11:13 AM EST) Only the most recent of2 resultswithin the time period is included. Glucose Blood, POC 209(A) 60 - 200 mg/dL QC Media Lot # [id number] Lot# Expiration Date Blood Capillary blood specimen / Unknown 04/11/2024 11:13 AM EST Bianca Shearer MD POINT OF CARE TEST ENTER/EDIT ORDERABLES Final Result * Influenza B (ID NOW Rapid Molecular) (04/03/2024 11:37 AM EST) Influenza B Negative Negative, Indeterminate [facility] QC Media Lot # [id number] [facility] Lot# Expiration Date , [facility] Swab 04/03/2024 11:3 7 AM EST Emily Sheikh DO POINT OF CARE TEST ENTER/PHILIPP T ORDERABLES Final Result Performing Organization Address [facility]/ZIP Co de Phone Number [facility] [address] [place] [address] [phone] * Influenza A (ID NOW Rapid Molecular) (04/03/2024 11:37 AM EST) Influenza A Negative Negative, Indeterminate [facility] QC Media Lot # [id number] [facility] Lot# Expiration Date [facility] Swab 04/03/2024 11:3 7 AM EST Emily Sheikh DO POINT OF CARE TEST ENTER/PHILIPP T ORDERABLES Final Result [facility] [address] [place] [phone] * POCT Rapid COVID Ag (04/03/2024 11:37 AM EST) [facility] Rapid COVID Ag Negative QC Media Lot # [id number] Lot# Expiration Date Swab 04/03/2024 11:3 7 AM EST Emily Sheikh DO POINT OF CARE TEST ENTER/PHILIPP T ORDERABLES Edited Result - Final * POCT rapid strep A manually resulted (04/03/2024 11:37 AM EST) [facility] Rapid Strep A Screen Negative Negative, None Detected QC Media Lot # [id number] Lot# Expiration Date Swab 04/03/2024 11:3 7 AM EST Emily Sheikh DO POINT OF CARE TEST ENTER/PHILIPP T ORDERABLES Edited Result - Final * POCT SHAWNA-14 Urine Drug Screen (04/03/2024 10:06 AM EST) Only the most recent of2 resultswithin the time period is included. Urine Urine specimen obtained by clean catch procedure / Unknown 04/03/2024 10:06 AM EST Heidi Freeman RN - 04/03/2024 10:06 AM EST UTOX cup Lot#[id number] Exp. 12/05/25 Internal Pass Control Negative for all substances Bianca Shearer MD POINT OF CARE TEST ENTER/EDIT ORDERABLES Final Result * BI Mammogram Screening Tomosynthesis Bilateral (11/24/2023 12:20 PM EDT) Anatomical Region Laterality Modality Breast Bilateral Mammography 11/24/2023 12:2 0 PM EDT Narrative 12/07/2023 8:20 PM EDT ? [facility] ? [address] ?[place] [address] ? Mammography Report ? Signed ? Patient: Rainey,Farnaz ?MR#: [id number] ?? [id number] ? : 1970 ?Acct:[id number] ? Age/Sex: 53 / F ?ADM Date: 11/24/23 ? Loc: HO.MAMMO ? Attending Dr: Bianca Shearer MD ? Ordering Physician: Bianca Shearer ?Results: 1Negative ? Date of Service: 11/24/23 ?Follow Up: 1 Year From Orig ?? inal Mammogram ? Procedure(s): MM tomosynthesis screening BI ?? Accession Number(s): [id number] ? cc: Bianca Shearer ? EXAMINATION: ?? MM SCREENING DIGITAL BREAST TOMOSYNTHESIS, BILATERAL ? CLINICAL INFORMATION: ? Screening. Asymptomatic. ? COMPARISON: ?? Mammography: Comparison is made with available priors ? TECHNIQUE: ?? Digital breast mammography with tomosynthesis is performed in both the ?? craniocaudal and mediolateral oblique views along with computer-aided ?? detection (CAD). ? FINDINGS: ?? The breasts are heterogeneously [...] due date for their next mammogram. ? Electronically signed by: ??Yadi Vogel DO ??12/07/2023 08:17 PM EDT ? Dictated By: ?Yadi Vogel DO ? Signed By: ?<Electronically signed by Yadi Vogel, DO in OV> ? 12/07/232016 ? DD/ 1220 ? TD/TT: 11/24/23 1237 ? Seaweed Harvester: ? Procedure Note Donleidyter, Image - 12/07/2023 [facility] [address] [place] [address] Mammography Report Signed Patient: Lorraine Rainey#: [id number] : 1970Acct:[id number] Age/Sex: 53 / FADM Date: 11/24/23 Loc: HO.MAMMO Attending Dr: Bianca Shearer MD Ordering Physician: Wade Shearerults: 1Negative Date of Service: 11/24/23Follow Up: 1 Year From Orig inal Mammogram Procedure(s): MM tomosynthesis screening BI Accession Number(s): [id number] cc: Bianca Shearer EXAMINATION: MM SCREENING DIGITAL BREAST TOMOSYNTHESIS, BILATERAL CLINICAL INFORMATION: Screening. Asymptomatic. COMPARISON: Mammography: Comparison is made with available priors TECHNIQUE: Digital breast mammography with tomosynthesis is performed in both the craniocaudal and mediolateral oblique views along with computer-aided detection (CAD). FINDINGS: The breasts are heterogeneously dense, which [...] target due date for their next mammogram. Electronically signed by: Yadi Vogel DO 12/07/2023 08:17 PM EDT RP Dictated By: Yadi Vogel DO Signed By: <Electronically signed by Yadi Vogel DO in OV> 12/07/232016 DD/ 1220 TD/TT: 11/24/23 1237 Seaweed Harvester: Bianca Shearer MD IMG BI PROCEDURES Edited Resul t - Final * (ABNORMAL) Lipid Panel, Standard (11/04/2022 9:21 AM EDT) Triglycerides 58 <150 mg/dL [facility] Comment:Desirable Triglyceri de: less than 150 mg/dLBorderline High Triglyceride 150-199 mg/dLHigh Triglyceride: 200-499 mg/dLVery High Triglyceride: greater than or equal to 5OO mg/dL Cholesterol 214(H) <200 mg/dL [facility] Comment:Desirable Cholestero l: less than 200 mg/dLBorderline High Cholesterol: 200-239 mg/dLHigh Cholesterol: greater than 239 mg/dL LDL Cholesterol Calculated 148(H) <100 mg/dL [facility] Comment:Desirable LDL: less than 100 mg/dLNear Optimal/Above Optimal LDL: 110- 129 mg/dLBorderline High LDL: 130-159 mg/dLHigh LDL: 160-189 mg/dLVery High LDL: greater than or equal to 190 mg/dL HDL Cholesterol 55 >40 mg/dL [facility] Comment:Desirable HDL: great er than 40 mg/dL Note: This HDL assay may give artificially low results in patients with liver disease. Blood Venous blood specimen / Unknown 11/04/2022 9:21 AM EDT 11/04/2022 11:00 AM EDT Bianca Shearer MD LAB BLOOD ORDERABLES Final Res ult [facility] [address] [place] [address] [phone] * ALBUMIN, RANDOM URINE W/CREATININE (08/27/2021 9:10 AM EDT) Microalbumin Urine 0.3 See Note: mg/dL [facility] Comment: Reference Range: ?? Reference Range Not established Microalb/Creat Ratio 3 <30 mcg/mg creat [facility] Comment: ?? The ADA defines abnormalities in albumin excretion as follows: ?? Albuminuria Category ?Result (mcg/mg creatinine) ?? Normal to Mildly increased ?? <30 Moderately increased ? 30-299 ?? Severely increased ? > OR = 300 ?? The ADA recommends that at least two of three specimens collected within a 3-6 month period be abnormal before considering a patient to be within a diagnostic category. Creatinine, Urine 107 20 - 275 mg/dL [facility] 08/27/2021 9:10 AM EDT Alethea Simon MD LAB URINE ORDERABLES Final Result Performing Organization Address [facility] Co de Phone Number [facility] [address] * HEPATITIS C AB W/REFL TO HCV RNA, QN, PCR (07/13/2021 11:10 AM EDT) HEPATITIS C ANTIBODY NON-REACT YUE NON-REACT YUE [facility] INDEX 0.01 <1.00 [facility] Comment: ?? HCV antibody was non-reactive. There is no laboratory ?? evidence of HCV infection. ?? In most cases, no further action is required. However, if recent HCV exposure is suspected, a test for HCV RNA (test code 61223) is suggested. ?? For additional information please refer to http://education.Tamoco/faq/QNX27g7 (This link is being provided for informational/ educational purposes only.) ?? 07/13/2021 11:1 0 AM EDT Zamzam Prado NP HISTORICAL/NON ORDERABLE LABS F inal Result Performing Organization Address [facility] Co de Phone Number [facility] [address] [place] [address], * HIV 1/2 ANTIGEN/ANTIBODY,FOURTH GENERATION W/RFL (07/13/2021 11:10 AM EDT) Pathologist [facility] HIV-1/2 ANTIGEN AND ANTIBODIES, 4TH GENERATION W/ REFLEX NON-REACT YUE NON-REACT YUE [facility] Comment: HIV-1 antigen and HIV-1/HIV-2 antibodies were not detected. There is no laboratory evidence of HIV infection. ?? PLEASE NOTE: This information has been disclosed to you from records whose confidentiality may be protected by state law. ??If your state requires such protection, then the state law prohibits you from making any further disclosure of the information without the specific written consent of the person to whom it pertains, or as otherwise permitted by law. A general authorization for the release of medical or other information is NOT sufficient for this purpose. ? For additional information please refer to http://education.Tamoco/faq/KWD192 (This link is being provided for informational/ educational purposes only.) ? The performance of this assay has not been clinically validated in patients less than 2 years old. ?? 07/13/2021 11:1 0 AM EDT Zamzam Prado NP LAB BLOOD ORDERABLES Final Resu lt Performing Organization Address [facility] Co de Phone Number [facility] [address] [place] [address], * THINPREP TIS PAP AND HPV mRNA E6/E7 REFLEX HPV 16,18/45 (01/08/2021 1:59 PM EDT) Pathologist [facility] Clinical Information: None given [facility] COMMENT SEE COMMENT [facility] Comment: EXPLANATORY NOTE: ? The Pap is a screening test for cervical cancer. It is ?? not a diagnostic test and is subject to false negative ?? and false positive results. It is most reliable when a ?? satisfactory sample, regularly obtained, is submitted ?? with relevant clinical findings and history, and when ?? the Pap result is evaluated along with historic and ?? current clinical information. ?? COMMENT: This Pap test has been evaluated with computer assisted technology. [facility] Spindle Setter: SEE COMMENT [facility] Comment: JH, CT(ASCP) CT screening location: [address] ??[id number] HPV nRNA E6/E7 Not Detected Not Detected [facility] Comment: Methodology: Cylinder Steamer-Mediated Amplification This assay detects E6/E7 viral messenger RNA (mRNA) from 14 high-risk HPV types (16,18,31,33,35,39,45,51,52,56,58,59,66,68). ? The analytical performance characteristics of this assay have been determined by [employer]. The modifications have not been cleared or approved by the FDA. This assay has been validated pursuant to the CLIA regulations and is used for clinical purposes. ?? For additional information, please refer to http://education.Tamoco/faq/DYW600q4 (This link if provided for information/ educational purposes only.) Interpretation/Re sult: Negative for intraepithelial lesion or malignancy. [facility] LMP: [id number] [facility] Prev. BX: NONE GIVEN [facility] Prev. PAP: NONE GIVEN [facility] SOURCE: Cervix [facility] Statement Of Adequacy: SEE COMMENT [facility] Comment: Satisfactory for evaluation. Endocervical/transformation zone component present. 01/08/2021 1:59 PM EDT us Danielle Hightower MD LAB PATHOLOGY ORDERABLES Megan reed Result [facility] [address] from Last 3 Months or Most Recently Relevant to Health Maintenance Insurance [id number] C3 Care Teams Respiratory Support Technician Relationship Specialty Start Date End Date Bianca Shearer MD [address] [place] [address] PCP - General Family Medicine 11/26/21 David Clark FNP [address] [place] [address] Nurse Practitioner Family Medicine 01/24/23
--- OUTSIDE RECORDS SUMMARY | 2024-04-11 15:36 | XMS_ITS | Encounter Summary ---
Author Organization [employer] Address [address] [place] [address] Care Team Providers Care Representative Phlebotomy Services Name Role Phone Bianca Shearer MD Primary Care Provider [phone] David Clark Unavailable Unavailable Reason for Visit * Reason Comments SPECIAL DEPUTY SHERIFF RV SPECIAL DEPUTY SHERIFF RV Encounter Details Date Type Department Care Team (Latest Contact Info) Description 04/03/2024 10:00 AM EST Clinical Support [facility] [address] [place], [place] [phone] Heidi Castañeda RN Chronic pain of both knees (Primary Dx) Social History Tobacco Use Types Packs/Day Years [...] as of this encounter Progress Notes * Heidi Castañeda RN - 04/03/2024 10:00 AM EST S: Pt here for SPECIAL DEPUTY SHERIFF Revisit. Prescribed Tramadol 50mg Q8hr PRN. States she has been taking as prescribed, last dose taken was last night. Continues to deny smoking cigarettes, ETOH use and illicit drug use. She no longer has any CBD syrup and can't afford to buy anymore, but said it really did help her sleep at night. She isn't using any marijuana products currently. She denies having a medical marijuana card. Currently rates her pain a 10 and states medication is 50% effective at alleviating her pain. Current pain sites are her neck and her lower back. O: SPECIAL DEPUTY SHERIFF Tier 3. Pt currently prescribed Tramadol 50mg Q8hr PRN. FLUID JET CUTTER OPERATOR verified today. Rx last filled on 03/30/24. Pill count performed. Pt has 78 pills at this time, 71 at least expected. Medication is not overused by patient. UTOX completed. Negative for all substances: AMP, BAR, BUP, BZO, CARRIE, FTY, MDMA, MET, MOP, MTD, OXY, PCP, TCA, THC. UTOX as expected. Discussed chronic pain group, patient saidshe's not interested at this time. Last PCP visit was 11/08/23, scheduled next 04/11/24. A: SPECIAL DEPUTY SHERIFF Contract Revisit: Chronic Opioid use related to pain. P: Pt to continue taking medication only as prescribed; Next SPECIAL DEPUTY SHERIFF Renewal appointment scheduled for 06/03/24 @ 10am, F/U sooner PRN. Appointment reminder provided. Pt verbalized understanding and agreed to plan. documented in this encounter Plan of Treatment Upcoming Encounters Date Type Department Care Team (Late st Contact Info) Description 06/03/2024 10:00 AM EDT Clinical Support [facility] [address] [place] [address] Heidi Castañeda, RN documented as of this encounter Procedures Procedure Name Priority Date/Time Associated Diagnosis Comments POCT SHAWNA-14 URINE DRUG SCREEN Routine 04/03/2024 10:06 AM EST Chronic pain of both knees documented in this encounter Results * POCT SHAWNA-14 Urine Drug Screen (04/03/2024 10:06 AM EST) Urine Urine specimen obtained by clean catch procedure / Unknown 04/03/2024 10:06 AM EST Narrative Heidi Castañeda, RN - 04/03/2024 10:06 AM EST UTOX cup Lot#[id number] Exp. 12/05/25 Internal Pass Control Negative for all substances Bianca Shearer MD POINT OF CARE TEST ENTER/EDIT ORDERABLES Final Result documented in this encounter Visit Diagnoses Diagnosis Chronic pain of both knees- Primary documented in this encounter Additional Health Concerns Assessment Noted Time PHQ-9 Depression Total Score: 5 08/15/19 24 9:39 AM EDT documented as of this encounter Care Teams Representative Phlebotomy Services Relationship Specialty Start Date End Date Bianca Shearer MD [address] [place] [phone] PCP - General Family Medicine 11/26/21 David Clark FNP [address] [place] [phone] Nurse Practitioner Family Medicine 01/24/23 documented as of this encounter
== END 2024-04-11 11:40 | disposition home or self-care (01) ==
LOC: HO.HHCL 11:39
PROVIDERS: Visit Provider General Practice
DX: D69.9 Hemorrhagic condition, unspecified (principal)
CPT/HCPCS: 36415; 85025

== ENCOUNTER 2024-07-12 19:30 | Emergency (ER) | payer MEDICAID, SELFPAY ==
[2024-07-12 19:32] VITALS: BP 137/95; PULSE 95; RESP 18; TEMP 36.4; O2SAT 98
--- NOTE | 2024-07-12 19:32 | ED_ITS ---
HPI - General Adult General Chief complaint: Urogenital-Female Stated complaint: Sent by Urgent Care - sugar in urine? Time Seen by Provider: 07/13/24 00:03 Source: patient Mode of arrival: ambulatory Limitations: no limitations History of Present Illness ED Provider: HPI narrative: Patient is diabetic on Trulicity and metformin went to urgent care center earlier today because she felt she might have UTI urine was tested was positive for ketones patient is sent here for rule out ketoacidosis patient denies any abdominal pain no nausea no vomiting blood sugar on arrival was 178 no history of ketoacidosis in the past Related Data Home Medications ?Medication ?Instructions ?Recorded ?Confirmed atorvastatin 20 mg tablet 20 mg PO DAILY 09/21/21 baclofen 10 mg tablet 10 mg PO BID 09/21/21 blood sugar diagnostic (FreeStyle #10 ea 09/21/21 Lite Strips) cholecalciferol (vitamin D3) 50 50 mcg PO DAILY 09/21/21 mcg (2,000 unit) tablet (Vitamin D3) hydroxyzine HCl 50 mg tablet 50 mg PO Q8H PRN 09/21/21 lancets 28 gauge (FreeStyle #100 ea 09/21/21 Lancets) lancets 33 gauge (TRUEplus Lancets) #100 ea 09/21/21 metformin 500 mg tablet 500 mg PO QPM 09/21/21 omeprazole 20 mg capsule,delayed 20 mg PO DAILY 09/21/21 release quetiapine 100 mg tablet 100 mg PO QAM 09/21/21 quetiapine 400 mg tablet 400 mg PO BEDTIME 09/21/21 tramadol 50 mg tablet 50 mg PO Q8H PRN pain 09/21/21 zolpidem 10 mg tablet 10 mg PO BEDTIME 09/21/21 Previous Rx's ?Medication ?Instructions ?Recorded bisacodyl 5 mg tablet,delayed 10 mg (2 x 5 mg) PO ONCE 1 day #2 09/21/21 release (Dulcolax (bisacodyl)) tabs polyethylene glycol 3350 17 238 g PO ONCE #238 grams 09/21/21 gram/dose oral powder (Miralax) amoxicillin 500 mg capsule 1,000 mg (2 x 500 mg) PO BID 2 10/15/21 weeks #56 caps levofloxacin 500 mg tablet 500 mg PO DAILY #14 tabs 10/15/21 pantoprazole 20 mg tablet,delayed 20 mg PO BID 2 weeks #28 tabs 10/15/21 release Allergies Allergy/AdvReac Type Severity Reaction Status Date / Time No Known Allergies Allergy Verified 07/12/24 19:35 Review of Systems 2 Review of Systems: Yes all other systems are reviewed and are negative REPLACED BY [facility] Past Medical History Medical History Elevated cholesterol Diabetes GERD (gastroesophageal reflux disease) Family history of Crohn's disease Surgical History Surgical history unknown Family History Family History Paternal Grandfather Diabetes Family/Other Stomach cancer Sister Chronic disease Social History Social History Household Members: Other Alcohol intake: unknown Patient Tobacco Use Status: Former Tobacco user Tobacco use type: Cigarette Cigarettes Per Day: 9 Advance Directives: No Advance Directives Information Provided: No Do you have a plan to hurt others: No Plan Physical Exam ED Vital Signs: Vital Signs - 24 hr 07/12/24 19:32 07/12/24 23:03 Temperature 97.5 F 98.3 F Pulse Rate 95 76 Respiratory Rate 18 16 Blood Pressure 137/95 H 143/101 H Pulse Oximetry 98 98 Oxygen Delivery Method Room Air Room Air BMI result Body Mass Index 30.0 Appearance: Alert. Oriented X3. No acute distress. Eyes: No pallor or icterus ENT: Pharynx normal. Oral Mucosa moist Neck: Normal inspection. Neck supple. CVS: Normal heart rate and rhythm. Pulses normal. Respiratory: No respiratory distress. Equal air entry bilateral, no wheezing/rales/rhonchi Abdomen: Soft and nontender. Bowel sounds are present, no mass palpable, no CVA tenderness Skin: Skin warm and dry. Normal skin color. Normal skin turgor. Extremities: No lower extremity edema. No calf tenderness Neuro: Oriented X 3. No motor deficit. No sensory deficit.No cerebellar signs , cranial nerves II-XII intact Course Course Course Narrative: This is an RME performed by Clark Morales CNP: Additional HPI, ROS, PE not included below will be deferred to primary provider. Patient is a 53-year-old female who presents emergency department for evaluation. She reports that she was experiencing dysuria from urinary urgency/hesitancy today. Reports that she presented to an urgent care, was found to turns in her urine and referred to the emergency department. She is a known diabetic, states that since Thanks[place] she has noticed her blood sugars are trending upwards, the past few days has been in the 300s. She currently takes metformin as well as Trulicity which was started in March of 2024 Plan: Serum labs, urinalysis Medical Decision Making Medical Decision Making [facility] Narrative: Patient type 2 diabetes with no history of DKA in the past comes here because urine ketone was positive patient does not have any ketoacidosis labs were normal beta hydroxybutyrate is also normal ketones positive likely from dehydration as patient not drinking enough fluids POC was 178 will discharge patient home advised to drink plenty of fluids Lab Data [facility] Lab Attestation statement: I reviewed the patient's lab results. 07/12/24 20:24 07/12/24 20:24 Labs: Lab Results 07/12/24 07/12/24 07/12/24 Range/Units 20:20 20:24 20:28 WBC 9.4 (4.8-10.8) X10*3/uL RBC 4.27 (4.20-5.50) X10*6/uL Hgb 13.8 (12.0-16.0) g/dl Hct 38.0 (37.0-47.0) % MCV 89.0 (80.0-98.0) fL MCH 32.3 (27.0-33.0) pg MCHC 36.3 H (31.0-35.0) g/dl RDW 13.1 (11.0-16.0) % Plt Count 293 (160-400) X10*3/uL MPV 10.9 (9.4-12.3) fL Immature Gran % (Auto) 0.2 (0.0-0.4) % Neut % (Auto) 38.1 L (45-73) % Lymph % (Auto) 52.7 H (20-40) % [place] % (Auto) 5.9 (2-11) % Eos % (Auto) 2.6 (0-4) % Baso % (Auto) 0.5 (0-2) % Lymph # (Auto) 5.0 H (1.2-4.9) X10*3/uL [place] # (Auto) 0.6 (0.1-1.2) X10*3/uL Eos # (Auto) 0.2 (0.0-0.4) X10*3/uL Baso # (Auto) 0.1 (0.0-0.2) X10*3/uL Abs Immat Gran (auto) 0.02 (0.00-0.03) X10*3/uL Absolute Neuts (auto) 3.6 (2.0-8.3) x10*3/uL Absolute Nucleated RBC 0.000 (0.0-0.012) X10*3/uL Nucleated RBC % (auto) 0.0 (0.0-0.2) /100WBC VBG pH 7.48 H (7.32-7.43) VBG pCO2 36 mmHg VBG pO2 39 mmHg VBG HCO3 27 H (22-26) mmol/L VBG O2 Saturation 64.0 % VBG Base Excess 4.2 mmol/L Sodium 142 (135-145) mmol/L Potassium 3.5 (3.3-5.1) mmol/L Chloride 104 (96-108) mmol/L Carbon Dioxide 27 (22-29) mmol/L Anion Gap 15 (12-20) BUN 9 (9-16) mg/dL Creatinine 0.76 (0.5-1.4) mg/dL Estim Creat Clear Calc 91.4 Estimated GFR > 60 POC Glucose 178 H (60-115) mg/dL Random Glucose 192 H (60-115) mg/dL Calcium 9.8 (8.4-10.2) mg/dL Total Bilirubin 0.5 (0.0-1.0) mg/dL AST 44 H (5-31) U/L ALT 83 H (0-31) U/L Alkaline Phosphatase 100 (39-117) U/L Total Protein 7.4 (6.5-8.0) g/dL Albumin 4.3 (3.5-5.0) g/dL Beta-Hydroxybutyrate 0.10 (0.02-0.27) mmol/L Urine Color Urine Appearance Urine pH (5.0-9.0) Ur Specific [place] (1.005-1.025) Urine Protein (Neg-Trace) mg/dL Urine Glucose (UA) (Negative) mg/dL Urine Ketones (Negative) mg/dL Urine Blood (Negative) Urine Nitrite (Negative) Ur Leukocyte Esterase (Negative) Urine RBC (0-2) /HPF Urine WBC (0-5) /HPF Ur Squamous Epith Cells (0-2) /HPF Urine Bacteria (None Seen) Hyaline Casts (0-2) /LPF 07/12/24 Range/Units 20:29 WBC (4.8-10.8) X10*3/uL RBC (4.20-5.50) X10*6/uL Hgb (12.0-16.0) g/dl Hct (37.0-47.0) % MCV (80.0-98.0) fL MCH (27.0-33.0) pg MCHC (31.0-35.0) g/dl RDW (11.0-16.0) % Plt Count (160-400) X10*3/uL MPV (9.4-12.3) fL Immature Gran % (Auto) (0.0-0.4) % Neut % (Auto) (45-73) % Lymph % (Auto) (20-40) % [place] % (Auto) (2-11) % Eos % (Auto) (0-4) % Baso % (Auto) (0-2) % Lymph # (Auto) (1.2-4.9) X10*3/uL [place] # (Auto) (0.1-1.2) X10*3/uL Eos # (Auto) (0.0-0.4) X10*3/uL Baso # (Auto) (0.0-0.2) X10*3/uL Abs Immat Gran (auto) (0.00-0.03) X10*3/uL Absolute Neuts (auto) (2.0-8.3) x10*3/uL Absolute Nucleated RBC (0.0-0.012) X10*3/uL Nucleated RBC % (auto) (0.0-0.2) /100WBC VBG pH (7.32-7.43) VBG pCO2 mmHg VBG pO2 mmHg VBG HCO3 (22-26) mmol/L VBG O2 Saturation % VBG Base Excess mmol/L Sodium (135-145) mmol/L Potassium (3.3-5.1) mmol/L Chloride (96-108) mmol/L Carbon Dioxide (22-29) mmol/L Anion Gap (12-20) BUN (9-16) mg/dL Creatinine (0.5-1.4) mg/dL Estim Creat Clear Calc Estimated GFR POC Glucose (60-115) mg/dL Random Glucose (60-115) mg/dL Calcium (8.4-10.2) mg/dL Total Bilirubin (0.0-1.0) mg/dL AST (5-31) U/L ALT (0-31) U/L Alkaline Phosphatase (39-117) U/L Total Protein (6.5-8.0) g/dL Albumin (3.5-5.0) g/dL Beta-Hydroxybutyrate (0.02-0.27) mmol/L Urine Color Yellow Urine Appearance Cloudy Urine pH 5.5 (5.0-9.0) Ur Specific [place] >= 1.030 H (1.005-1.025) Urine Protein 30 (1+) H (Neg-Trace) mg/dL Urine Glucose (UA) 100 H (Negative) mg/dL Urine Ketones 15 (Negative) mg/dL Urine Blood Small (1+) H (Negative) Urine Nitrite Negative (Negative) Ur Leukocyte Esterase Negative (Negative) Urine RBC >20 H (0-2) /HPF Urine WBC 0-5 (0-5) /HPF Ur Squamous Epith Cells 6-10 (0-2) /HPF Urine Bacteria Trace (None Seen) Hyaline Casts 0-2 (0-2) /LPF Discharge Plan Discharge Clinical Impression: Diabetes mellitus with hyperglycemia Patient Disposition: Home, Self-Care Instructions: Meal Planning with Diabetes Exchanges (DC), Diabetic Hyperglycemia (ED) Additional Instructions: Drink plenty of fluids Take your medications on time Diabetic diet as advised Follow up with your PCP Prescriptions: No Action amoxicillin 500 mg capsule 1,000 mg PO BID 14 Days Qty: 56 0RF pantoprazole 20 mg tablet,delayed release (DR/EC) 20 mg PO BID 14 Days Qty: 28 0RF levofloxacin 500 mg tablet 500 mg PO DAILY Qty: 14 0RF (DME) FreeStyle Lite Strips Strip See Rx Instructions Not Applicable BID Qty: 10 Rx Instructions: As directed baclofen 10 mg tablet 10 mg PO BID tramadol 50 mg tablet 50 mg PO Q8H PRN (Reason: pain) zolpidem 10 mg tablet 10 mg PO BEDTIME quetiapine 400 mg tablet 400 mg PO BEDTIME quetiapine 100 mg tablet 100 mg PO QAM atorvastatin 20 mg tablet 20 mg PO DAILY metformin 500 mg tablet 500 mg PO QPM (DME) lancets [FreeStyle Lancets] 28 gauge misc See Rx Instructions .ROUTE BID Qty: 100 Rx Instructions: As directed omeprazole 20 mg capsule,delayed release(DR/EC) 20 mg PO DAILY cholecalciferol (vitamin D3) [Vitamin D3] 50 mcg (2,000 unit) tablet 50 mcg PO DAILY hydroxyzine HCl 50 mg tablet 50 mg PO Q8H PRN (DME) lancets [TRUEplus Lancets] 33 gauge misc See Rx Instructions Not Applicable BID Qty: 100 Rx Instructions: As directed bisacodyl [Dulcolax (bisacodyl)] 5 mg tablet,delayed release (DR/EC) 10 mg PO ONCE 1 Days Qty: 2 0RF Rx Instructions: take 2 tabs at noon the day before your colonoscopy polyethylene glycol 3350 [Miralax] 17 gram/dose powder 238 g PO ONCE Qty: 238 0RF Rx Instructions: As directed by gastroenterology department at [facility] Print Language: Moroccan
[2024-07-12 20:28] LABS: MANUAL DIFF FLAG NO
[2024-07-12 20:29] LABS: Glucose, Whole Blood 178 mg/dL (60-115)
[2024-07-12 20:31] LABS: Basophils Absolute Auto 0.1 X10*3/uL (0.0-0.2); Basophils Percent Auto 0.5 % (0-2); Eosinophils Absolute Auto 0.2 X10*3/uL (0.0-0.4); Eosinophils Percent Auto 2.6 % (0-4); Hemoglobin 13.8 g/dl (12.0-16.0); Imm Gran Abs Auto 0.02 X10*3/uL (0.00-0.03); Imm Gran Pct Auto 0.2 % (0.0-0.4); Lymphocytes Percent Auto 52.7 % (20-40); Mean Corpuscular HGB Conc 36.3 g/dl (31.0-35.0); Mean Corpuscular Hemoglobin 32.3 pg (27.0-33.0); Mean Platelet Volume 10.9 fL (9.4-12.3); Monocytes Absolute Auto 0.6 X10*3/uL (0.1-1.2); Monocytes Percent Auto 5.9 % (2-11); Neutrophils Absolute Auto 3.6 x10*3/uL (2.0-8.3); Neutrophils Percent Auto 38.1 % (45-73); Platelet Count 293 X10*3/uL (160-400); Red Blood Count 4.27 X10*6/uL (4.20-5.50); Red Cell Distribution Width 13.1 % (11.0-16.0); Venous Blood Gas Refer to POC result; White Blood Count 9.4 X10*3/uL (4.8-10.8)
[2024-07-12 20:31] LABS: VBG Base Excess 4.2 mmol/L; VBG HCO3 27 mmol/L (22-26); VBG pCO2 36 mmHg; VBG pH 7.48 (7.32-7.43); VBG pO2 39 mmHg
--- OUTSIDE RECORDS SUMMARY | 2024-07-12 20:33 | XMS_ITS | Encounter Summary ---
Author Organization [employer] [facility] Address [address] 7t [place] [address] Care Team Providers Care Underliner Name Role Phone Bianca Shearer MD Primary Care Provider [phone] David Clark Unavailable Unavailable Reason for Visit * Reason Comments Med Refill Encounter Details Date Type Department Care Team (Late st Contact Info) Description 12/30/2022 Refill [facility] [address] [place] [phone] Emily Sheikh DO [address] [place] [address] Social History Tobacco Use Types Packs/Day Years [...] Care Team (Late st Contact Info) Description 07/24/2024 11:30 AM EDT Office Visit [facility] [address] [place] [phone] Bianca Shearer MD [address] [place] [address] 08/15/2024 9:30 AM EDT Clinical Support [facility] [address] [place] [phone] Heidi Castañeda, SARAH BETH documented as of this encounter Visit Diagnoses Not on filedocumented in this encounter Additional Health Concerns Assessment Noted Time PHQ-9 Depression Total Score: 1 12/30/19 23 8:54 AM EDT documented as of this encounter Care Teams Underliner Relationship Specialty Start Date End Date Bianca Shearer MD [address] [place] [phone] PCP - General Family Medicine 11/26/21 David Clark FNP [address] [place] [address]87 Nurse Practitioner Family Medicine 01/24/23 documented as of this encounter
--- OUTSIDE RECORDS SUMMARY | 2024-07-12 20:33 | XMS_ITS | Encounter Summary ---
Author Organization [employer] Address [address] [facility] [address] 7[address] [place] [address] Care Team Providers Care Logistics Administrator Name Role Phone Bianca Shearer MD Primary Care Provider David Clark Unavailable Unavailable Reason for Visit * Reason Comments Med Refill Encounter Details Date Type Department Care Team ([facility] st Contact Info) Description 05/30/2024 Refill [facility] [address] [place], [place] [phone] Bianca Shearer MD [address] [place], [place] [phone] Other specified anxiety disorders Social History Tobacco [...] enough money to get more: Never True 02/ 07/2023 Transportation Answer Date Recorded In the [...] Description 07/24/2024 11:30 AM EDT Office Visit [address] [address] Bianca Shearer MD [address] [place] [address] 08/15/2024 9:30 AM EDT Clinical Support [address] [address] Heidi Castañeda, SARAH BETH documented as of this encounter Visit Diagnoses Diagnosis Other specified anxiety disorders documented in this encounter Additional Health Concerns Assessment Noted Time PHQ-9 Depression Total Score: 5 08/15/19 24 9:39 AM EDT documented as of this encounter Care Teams Logistics Administrator Relationship Specialty Start Date End Date Bianca Shearer MD [address] [place] [phone] PCP - General Family Medicine 11/26/21 David Clark FNP [address] [place] [address] Nurse Practitioner Family Medicine 01/24/23 documented as of this encounter
--- OUTSIDE RECORDS SUMMARY | 2024-07-12 20:33 | XMS_ITS | Encounter Summary ---
Author Organization [email or web address] [facility] Address [address] [place] [address] Care Team Providers Care Manager Trainee Name Role Phone Bianca Shearer MD Primary Care Provider [phone] David Clark Unavailable Unavailable Reason for Visit * Reason Comments Med Refill Encounter Details Date Type Department Care Team (Late st Contact Info) Description 12/29/2022 Refill [facility] [address] [place] [address] [phone] Bianca Shearer MD [address] [place] [address] [phone] Chronic pain of right knee Social History [...] Description 07/24/2024 11:30 AM EDT Office Visit [facility] [address] [place] [address] [phone] Bianca Shearer MD [address] [place] [address] 08/15/2024 9:30 AM EDT Clinical Support [facility] [address] [place] [phone] Heidi Castañeda RN documented as of this encounter Visit Diagnoses Diagnosis Chronic pain of right knee documented in this encounter Additional Health Concerns Assessment Noted Time PHQ-9 Depression Total Score: 1 12/30/19 23 8:54 AM EDT documented as of this encounter Care Teams Manager Trainee Relationship Specialty Start Date End Date Bianca Shearer MD [address] [place] [phone] PCP - General Family Medicine 11/26/21 David Clark FNP [address] [place] [address] Nurse Practitioner Family Medicine 01/24/23 documented as of this encounter
--- OUTSIDE RECORDS SUMMARY | 2024-07-12 20:33 | XMS_ITS | Encounter Summary ---
Author Organization [employer] Address [address] [address] [facility] [address] 7[address] [place] [address] Care Team Providers Care X Ray Control Equipment Repairer Name Role Phone Bianca Shearer MD Primary Care Provider [phone] David Clark Unavailable Unavailable Reason for Visit * Reason Comments Med Refill Encounter Details Date Type Department Care Team ([facility] st Contact Info) Description 02/01/2024 Refill [facility] [address] [place], [place] [phone] Bianca Shearer MD 230 [place] [address] Social History Tobacco Use Types Packs/Day Years [...] Description 07/24/2024 11:30 AM EDT Office Visit [address] [address] Bianca Shearer MD [address] [place] [address] 08/15/2024 9:30 AM EDT Clinical Support [address] [address] Heidi Castañeda, SARAH BETH documented as of this encounter Visit Diagnoses Not on filedocumented in this encounter Additional Health Concerns Assessment Noted Time PHQ-9 Depression Total Score: 5 08/15/19 24 9:39 AM EDT documented as of this encounter Care Teams X Ray Control Equipment Repairer Relationship Specialty Start Date End Date Bianca Shearer MD [address] [place] [phone] PCP - General Family Medicine 11/26/21 David Clark FNP [address] [place] [address] Nurse Practitioner Family Medicine 01/24/23 documented as of this encounter
--- OUTSIDE RECORDS SUMMARY | 2024-07-12 20:33 | XMS_ITS | Encounter Summary ---
Author Organization [employer] Address [address] [place] [address] Care Team Providers Care Policyholder Information Clerk Name Role Phone Bianca Shearer MD Primary Care Provider [phone] David Clark Unavailable Unavailable Reason for Visit * Reason Onset Date Comments Med Refill 02/01/2024 Encounter Details Date Type Department Care Team (Late st Contact Info) Description 02/01/2024 Telephone [facility] 230 [place], [place] [phone] Bianca Shearer MD 230 [place], [place] [phone] Med Refill Social History Tobacco Use Types [...] [place] LPN - 02/01/2024 9:21 AM EST ACID EXTRACTOR checked on 02/01/24 medication should still have refills. * Telephone Encounter - Dee Gama - 02/01/2024 9:05 AM EST TC from pt requesting medication refill. Medications needing refill : zolpidem (Ambien) 10 MG tablet To be sent to: [facility]/pharmacy #[id number] - [address] documented in this encounter Plan of Treatment Upcoming Encounters Date Type Department Care Team (Late st Contact Info) Description 07/24/2024 11:30 AM EDT Office Visit [facility] [address] [place] [phone] Bianca Shearer MD [address] [place] [address] 08/15/2024 9:30 AM EDT Clinical Support [facility] [address] [place] [phone] Heidi Castañeda RN documented as of this encounter Visit Diagnoses Not on filedocumented in this encounter Additional Health Concerns Assessment Noted Time PHQ-9 Depression Total Score: 5 08/15/19 24 9:39 AM EDT documented as of this encounter Care Teams Policyholder Information Clerk Relationship Specialty Start Date End Date Bianca Shearer MD [address] [place] [address] PCP - General Family Medicine 11/26/21 David Clark FNP [address] [place] [address] Nurse Practitioner Family Medicine 01/24/23 documented as of this encounter
--- OUTSIDE RECORDS SUMMARY | 2024-07-12 20:34 | XMS_ITS | Encounter Summary ---
Author Organization [employer] [facility] Address [address] [facility] 7t [place] [address] Care Team Providers Care Sales And Marketing Associate Name Role Phone Bianca Shearer MD Primary Care Provider [phone] David Clark Unavailable Unavailable Reason for Visit * Reason Comments Med Refill Encounter Details Date Type Department Care Team ([facility] Contact Info) Description 08/03/2022 Refill [facility] [address] [place] [address] [phone] Bianca Shearer MD [address] [place], [place] [phone] Gastroesophageal reflux disease without esophagitis Social History [...] Upcoming Encounters Date Type Department Care Team ([facility] Contact Info) Description 07/24/2024 11:30 AM EDT Office Visit [facility] [address] [place], [place] [phone] Bianca Shearer MD [address] [place] [phone] 08/15/2024 9:30 AM EDT Clinical Support [facility] [address] [place] [address] Heidi Castañeda, SARAH BETH documented as of this encounter Visit Diagnoses Diagnosis Gastroesophageal reflux disease without esophagitis Esophageal reflux documented in this encounter Additional Health Concerns Assessment Noted Time PHQ-9 Depression Total Score: 4 07/01/19 9:23 AM EDT documented as of this encounter Care Teams Sales And Marketing Associate Relationship Specialty Start Date End Date Bianca Shearer MD [address] [place] [address] PCP - General Family Medicine 11/26/21 David Clark FNP [address] [place] [address] Nurse Practitioner Family Medicine 01/24/23 documented as of this encounter
--- OUTSIDE RECORDS SUMMARY | 2024-07-12 20:34 | XMS_ITS | Encounter Summary ---
Author Organization [employer] Address [address] [place] [address] Care Team Providers Care Vending Machine Host/Hostess Name Role Phone Bianca Shearer MD Primary Care Provider [phone] David Clark Unavailable Unavailable Reason for Visit * Reason Onset Date Comments [facility] visit faxed to [facility] 07/12/2024 Encounter Details Date Type Department Care Team ([facility] st Contact Info) Description 07/12/2024 Telephone [facility] [address] [place], [place] [phone] Tracee Daniels, SARAH BETH [facility] visit faxed to [facility] Social History Tobacco Use Types Packs/Day Years [...] encounter Miscellaneous Notes * Telephone Encounter - Tracee Daniels RN - 07/12/2024 4:43 PM EDT Per provider request, Nicole Zoieflorence OPERATIONS RESEARCH MANAGER stated pt stated she would be going home and may go to the [facility] ED ; OPERATIONS RESEARCH MANAGER requested visit information be given to [facility] for reference. Face sheet, today's visit notes with labs and vitals, med/allergy list and problem list faxed to [phone] to [facility] Confirmation of receipt received at 1646 documented in this encounter Plan of Treatment Upcoming Encounters Date Type Department Care Team (Late st Contact Info) Description 07/24/2024 11:30 AM EDT Office Visit [facility] [address] [place] [phone] Bianca Shearer MD [address] [place] [address] 08/15/2024 9:30 AM EDT Clinical Support [facility] [address] [place] [phone] Maddy, Heidi, RN documented as of this encounter Visit Diagnoses Not on filedocumented in this encounter Additional Health Concerns Assessment Noted Time PHQ-9 Depression Total Score: 5 08/15/19 24 9:39 AM EDT documented as of this encounter Care Teams Vending Machine Host/Hostess Relationship Specialty Start Date End Date Bianca Shearer MD [address] [place] [address] PCP - General Family Medicine 11/26/21 David Clark FNP [address] [place] [address] Nurse Practitioner Family Medicine 01/24/23 documented as of this encounter
--- OUTSIDE RECORDS SUMMARY | 2024-07-12 20:34 | XMS_ITS | Clinical Summary ---
Author Organization [employer] Address [address] [place] [address] Care Team Providers Care Catalyst Recovery Operator Name Role Phone Bianca Shearer MD Primary Care Provider [phone] David Clark Unavailable Unavailable Allergies No known active allergies Medications calcium carbonate (Os-Alberto) 1250 (500 Ca) MG tablet take one pill with food daily 01/02/20 21 Active Blood Glucose Monitoring Suppl (FreeStyle Lite) w/Device kitIndications :Type 2 diabetes mellitus without complication, unspecified whether keno terminal operator insulin use ([facility]) 1 kit 2 times daily. To monitor blood glucose 1 kit 07/26/19 23 Active naloxone (Narcan) 4 mg/0.1 mL nasal spray Administer 1 spray (4 mg) into affected nostril(s) if needed for opioid reversal. 2 each 2 09/27/19 23 Active TRUEplus Lancets 33G miscIndication s:Type 2 diabetes mellitus without complication, without long-term current use of insulin ([facility]) USE TO TEST BLOOD SUGAR TWICE A [...] Active cholecalcifero l (Vitamin D-3) 50 MCG (1999 UT) tablet TAKE 1 TABLET BY MOUTH EVERY DAY 90 tablet 3 12/04/19 24 Active atorvastatin (Lipitor) 20 MG tablet TAKE 1 TABLET BY MOUTH EVERY DAY 90 tablet 3 12/04/19 24 Active hydrocortisone 1 % cream MIX WITH CERAVE AND APPLY A THIN LAYER TOPICALLY TO THE AFFECTED AREA IMMEDIATELY AFTER BATHING 112 g 3 02/02/20 24 Active baclofen (Lioresal) 10 MG tablet TAKE 1 TABLET BY MOUTH TWICE A DAY 180 tablet 2 02/02/20 24 Active cetirizine (ZyrTEC) 10 MG tablet Take [...] replace cap. 48 g 3 04/03/19 25 Active metFORMIN (Glucophage) 500 MG tablet Take 2 tablets (1,000 mg) by mouth with breakfast and with evening meal. 360 tablet 3 04/03/19 25 Active glucose blood (FREESTYLE LITE) test stripIndicatio ns:Type 2 diabetes mellitus with hyperglycemia, unspecified whether keno terminal operator insulin use ([facility]) Use one strip to test blood sugar twice daily 100 strip 5 04/11/19 25 Active Dulaglutide (Trulicity) 1.5 MG/0.5ML solution auto-injector Inject 1.5 mg under the skin 1 (one) time per week. 2 mL 04/11/19 25 Active Alcohol Swabs ([facility] Prep) 70 % pads USE DIRECTED TO TEST BLOOD SUGAR 100 each 11 05/01/19 25 Active zolpidem (Ambien) 10 MG tabletIndicati ons:Other specified anxiety disorders TAKE 1 TABLET BY MOUTH AT BEDTIME NEEDED FOR SLEEP 30 tablet 07/03/19 25 Active traMADol (Ultram) 50 MG tabletIndicati ons:Chronic pain of right knee Take 2 tablets (100 mg) by mouth every 12 (twelve) hours if needed for severe pain for up to 28 days. 112 tablet 07/03/19 25 025 Active zolpidem (Ambien) 10 MG tabletIndicati ons:Other specified anxiety disorders TAKE 1 TABLET BY MOUTH AT BEDTIME NEEDED FOR SLEEP 30 tablet 06/01/19 25 025 Discontinued(R eorder (will not trigger notification to Pharmacy)) traMADol (Ultram) 50 MG tabletIndicati ons:Chronic pain of right knee Take 2 tablets (100 mg) by mouth every 12 (twelve) hours if needed for severe pain for up to 28 days. 112 tablet 06/01/19 25 025 Discontinued(R eorder (will not trigger notification to Pharmacy)) Active Problems Problem Noted Date Diagnosed Date Type 2 diabetes mellitus with hyperglycemia 03/2024 Assessment & Plan (04/13/2024 11:10 AM EST): Current A1c: 9.5, increase Trulicity to 1.5mg weekly, continue Metformin 1000mg BID BMP: Microalbumin: Foot Exam: Complete at follow up [...] <130 2 hour post prandial goal: <180 Chronic use of opiate drug for therapeutic purpo se 04/13/2024 Overview (04/13/2024): Dx: Bilateral knee pain Rx: Tramadol 100mg BID Last [place] [employer] LAW CLERK agreement: Tier II (visit every 3 months) Additional considerations: Timeline: Perimenopause 07/14/2023 Assessment & Plan (07/14/2023 4:01 PM EDT): Less than one year since last period Will treat with herbal remedies purchased OTC at pharmacy and Paxil 10mg nightly To monitor cycles, if greater than one year without periods, and vasomotor symptoms are bothersome still, can treat with HRT Chronic pain of both knees 04/25/2023 Assessment & Plan (04/13/2024 11:10 AM EST): Tramadol prnon [employer] [employer] LAW CLERK agreement for this Will increase to Tramadol 100mg BID from 50mg TID Assessment & Plan (04/25/2023 9:32 PM EST): [...] discharge 04/22/2022 Pruritus 02/12/2022 Mood disorder 02/12/2022 Anxiety disorder 12/15/2014 Assessment & Plan (08/15/2023 [...] (10/24/2022 9:11 AM EDT): Letter written for [facility] Assessment & Plan (09/27/2022 10:00 AM EDT): With intermittent psychotic delusions (insect infestation), did not mention today. Cont current medications. F/U with me in 3 months. I have reassured her that this provider has no plans to leave [facility] for at least another year, and we [...] Pure hypercholesterolemia 12/15/2014 Tobacco dependence syndrome 12/15/2014 Resolved Problems Problem Noted Date Diagnosed Date Resolved Date Type 2 diabetes mellitus without complication 12/15/19 20 04/13/2024 Assessment & Plan (11/09/2023 2:19 PM EDT): Current A1c: 6.8 Referred to [facility] and Erin Rasteven for fresh food, she would like to [...] 9:11 AM EDT): Due for labs, ordered Encounters Date Type Department Care Team Description 07/12/2024 2:00 PM EDT Office Visit [facility] [address] [place] [address] Kasey Calvo NP Burning with urination (Primary Dx); Glucose found in urine on examination; Abnormal urinalysis; Hematuria, unspecified type 07/12/2024 Telephone [facility] [address] [place] [address] Tracee Daniels RN [facility] visit faxed to [facility] 07/12/2024 Telephone [facility] [address] [place] [address] Bianca Shearer MD Nurse Triage 07/02/2024 Telephone [facility] [address] [place] [address] Bianca Shearer MD Medication Question 07/02/2024 Refill [facility] [address] [place] [address] Bianca Shearer MD Other specified anxiety disorders 07/02/2024 Refill [facility] [address] [place] [address] Bianca Shearer MD Chronic pain of right knee 05/30/2024 Refill [facility] [address] [place] [address] Bianca Shearer MD Other specified anxiety disorders 05/30/2024 Refill [facility] [address] [place] [address] Bianca Shearer MD Other specified anxiety disorders 05/30/2024 Refill [facility] [address] [place] [address] Bianca Shearer MD Chronic pain of right knee 05/24/2024 [address] Health Risk Score [facility] (C3) Department [address] [phone] Provider, Population Health Generic 05/01/2024 Refill [facility] [address] [place] [address] Bianca Shearer MD Other specified anxiety disorders 05/01/2024 Refill [facility] [address] [place] [address] Bianca Shearer MD Chronic pain of right knee from Last 3 Months Immunizations Name Administration Dates Next Due Hep A, Adult 12/21/2010,04/29/2010 Hep B, adult 12/19/2008, 8,12/19/2006,10/24 Influenza injectable quadriv alent IIV4 with preservative 01/06/2016,12/15/2014 Influenza injectable quadriv alent preservative free 04/21/2023,11/30/2020,01/31/2019,05/17,06/16/2014 Influenza, Split (incl. kandi fied surface antigen) 02/27/2012 Moderna Covid-19 Vaccine 12+ 06/23/2020,05/27/19 Moderna Covid-19 Vaccine 6+ Bivalent 01/15/2022 Pfizer [...] your housing situation today? I have dima dahiana 04/17/[address] you li [...] Sign Reading Time Taken Comments Blood Pressure 149/95 07/12/2024 2:12 PM EDT Pulse 96 07/12/2024 2:12 PM EDT Temperature 36.8 ??C (98.2 ??F) 07/12/2024 2:12 PM ED T Respiratory Rate 24 07/12/2024 2:12 PM EDT Oxygen Saturation 98% 07/12/2024 2:12 PM EDT Inhaled Oxygen Concentration - - Weight 83.3 kg (183 lb 9.6 oz) 07/12/2024 2:12 P M EDT Height 165.1 cm (5' 5 ) 07/12/2024 2:12 PM EDT Body Mass Index 30.55 07/12/2024 2:12 PM EDT Plan of Treatment Upcoming Encounters Date Type Department Care Team (Late st Contact Info) Description 07/24/2024 11:30 AM EDT Office Visit [facility] [address] [place] [address] Bianca Shearer MD [address] [place] [address] 08/15/2024 9:30 AM EDT Clinical Support [facility] [address] [place] [address] Heidi Castañeda, RN Health Maintenance Due Date [...] 08/14/2024 08/15/2023, 08/15/19 24 Mammogram 11/23/2024 11/24/2023, 2023, 11/12/2021, Additional history exists SDOH Screening 04/02/2025 04/02/2024 Tobacco Screening 07/12/2025 07/12/2024 Cervical Cancer Screening 01/08/2026 HPV/Cotest 01/08/2026 01/08/2021 Colonoscopy 10/12/2026 Colorectal Cancer Screening 10/12/2026 RSV Patients and Patients Aged 60 years or older (1 - 1-dose 75+ series) 08/29/2046 Hepatitis B Vaccines Completed 12/19/2008, 04/18/2007, 12/19/2006, Additional history exists Hepatitis A Vaccines Aged Out 12/21/2010, 04/29/19 11 No longer eligible based on patient's age to complete this topic HIV Screening Completed 07/13/2021 Hepatitis C Screening [...] Procedure Name Priority Date/Time Associated Diagnosis Comments VENOUS BLOOD GAS Routine 07/12/2024 8:28 PM EDT CBC WITH AUTO DIFFERENTIAL Routine 07/12/2024 8:24 PM EDT GLUCOSE, WHOLE BLOOD Routine 07/12/2024 8:20 PM EDT POCT GLUCOSE Routine 07/12/2024 2:56 PM EDT Glucose found in urine on examination POCT URINALYSIS DIPSTICK Routine 07/12/2024 2:45 PM EDT Burning with urination POCT GLYCATED HEMOGLOBIN, TOTAL Routine 04/11/2024 11:15 AM EST Type 2 diabetes mellitus with hyperglycemia, unspecified whether fpc insulin use (CMS/HCC) BI MAMMOGRAM SCREENING TOMOSYNTHESIS BILATERAL Routine 11/24/2023 [...] Recently Relevant to Health Maintenance Results * (ABNORMAL) VENOUS BLOOD GAS (07/12/2024 8:28 PM EDT) VBG pH 7.48(H) 7.32 - 7.43 [facility] Comment:METER #: [id number] additional_comment: Aaron solrobson VBG PCO2 36 mmHg [facility] Comment:METER #: [id number] additional_comment: Aaron emery VBG PO2 39 mmHg [facility] Comment:METER #: [id number] additional_comment: Aaron emery CIDG Base Excess 4.2 mmol/L [facility] Comment:METER #: [id number] additional_comment: Aaron CIDG HCO3 27(H) 22 - 26 mmol/L [facility] Comment:METER #: [id number] additional_comment: Aaron land O2 Sat, Yoav 64.0 % [facility] Comment:METER #: [id number] additional_comment: Aaron land 07/12/2024 8:28 PM EDT 07/12/2024 8:31 PM EDT us Generic External Data Provider LAB BLOOD ORDERAB LES Final Result [facility] [address] [place] [phone] * (ABNORMAL) CBC auto differential (07/12/2024 8:24 PM EDT) White Blood Count 9.4 4.8 - 10.8 X10*3/uL [facility] Red Blood Count 4.27 4.20 - 5.50 X10*6/uL [facility] Hemoglobin 13.8 12.0 - 16.0 g/dl [facility] Hematocrit 38.0 37.0 - 47.0 % [facility] Mean Corpuscular Volume 89.0 80.0 - 98.0 fL [facility] Mean Corpuscular Hemoglobin 32.3 27.0 - 33.0 pg [facility] Mean Corpuscular HGB Conc 36.3(H) 31.0 - 35.0 g/dl [facility] Red Cell Distribution Width 13.1 11.0 - 16.0 % [facility] Platelet Count 293 160 - 400 X10*3/uL [facility] Mean Platelet Volume 10.9 9.4 - 12.3 fL [facility] Neutrophils Percent Auto 38.1(L) 45 - 73 % [facility] Imm Gran Pct Auto 0.2 0.0 - 0.4 % [facility] Lymphocytes Percent Auto 52.7(H) 20 - 40 % [facility] Monocytes Percent Auto 5.9 2 - 11 % [facility] Eosinophils Percent Auto 2.6 0 - 4 % [facility] Basophils Percent Auto 0.5 0 - 2 % [facility] NRBC Pct Auto 0.0 0.0 - 0.2 /100WBC [facility] Neutrophils Absolute Auto 3.6 2.0 - 8.3 x10*3/uL [facility] Imm Gran Abs Auto 0.02 0.00 - 0.03 X10*3/uL [facility] Lymphocytes Absolute Auto 5.0(H) 1.2 - 4.9 X10*3/uL [facility] Monocytes Absolute Auto 0.6 0.1 - 1.2 X10*3/uL [facility] Eosinophils Absolute Auto 0.2 0.0 - 0.4 X10*3/uL [facility] Basophils Absolute Auto 0.1 0.0 - 0.2 X10*3/uL [facility] NRBC Abs Auto 0.000 0.0 - 0.012 X10*3/uL [facility] 07/12/2024 8:24 PM EDT 07/12/2024 8:27 PM EDT Generic External Data Provider LAB BLOOD ORDERAB LES Final Result Performing Organization Address City/[facility]/ZIP Co de Phone Number [facility] [address] [place] [phone] * (ABNORMAL) Glucose, Whole Blood (07/12/2024 8:20 PM EDT) [facility] Glucose, Whole Blood 178(H) 60 - 115 mg/dL [facility] Comment:METER #: [id number] 07/12/2024 8:2 0 PM EDT 07/12/2024 8:29 PM EDT us Generic External Data Provider LAB BLOOD ORDERAB LES Final Result Performing Organization Address [facility]/ZIP Co de Phone Number [facility] [address] [place] [phone] * (ABNORMAL) POCT Glucose (07/12/2024 2:56 PM EDT) Glucose Blood, POC 231(A) 60 - 200 mg/dL QC Media Lot # [id number] Lot# Expiration Date 52, Blood Capillary blood specimen / Unknown 07/12/2024 2:[address] [facility] LILIYA POINT OF CARE TEST ENTER/EDIT O RDERABLES Final Result * (ABNORMAL) POCT Urinalysis (07/12/2024 2:45 PM EDT) Color, UA Dark [place] Clarity, UA Turbid Glucose, UA Trace Comment:500mg/dL Bilirubin, UA Negative Ketones, UA Positive Spec Grav, UA 1.030 Blood, UA Positive(A) Negative, None Detected Comment:large pH, UA 5.5 Protein, UA Trace Comment:100 mg/dL Urobilinogen, UA 1.0 Leukocytes, UA Negative Negative, Rare, Trace Nitrite, UA Negative Negative, None Detected Appearance, UA turbid QC Media Lot # [id number] Lot# Expiration Date 82 Urine 07/12/2024 2:45 PM EDT [facility] [employer] POINT OF CARE TEST ENTER/EDIT O RDERABLES Final Result * (ABNORMAL) POCT HGB A1C (04/11/2024 11:15 AM EST) Hemoglobin A1C 9.5(A) 4.0 - 6.0 % QC Media Lot # [id number] Lot# Expiration Date Blood 04/11/2024 11:1 5 AM EST Bianca Shearer MD POINT OF CARE TEST ENTER/EDIT ORDERABLES Final Result * BI Mammogram Screening Tomosynthesis Bilateral (11/24/2023 12:20 PM EDT) Anatomical Region Laterality Modality Breast Bilateral Mammography 11/24/2023 12:2 0 PM EDT Narrative 12/07/2023 8:20 PM EDT ? [facility] ? [address] ?[place] [address] ? Mammography Report ? Signed ? Patient: Rainey,Farnaz ?MR#: [id number] ?? [id number] ? : 1970 ?Acct:[id number] ? Age/Sex: 53 / F ?ADM Date: 11/24/23 ? Loc: HO.MAMMO ? Attending Dr: Bianca Shearer MD ? Ordering Physician: Bianca Shearer ?Results: 1Negative ? Date of Service: 11/24/23 ?Follow Up: 1 Year From Orig ?? inal Mammogram ? Procedure(s): MM tomosynthesis screening BI ?? Accession Number(s): [id number] ? cc: Bianca Shearer ? EXAMINATION: ?? [...] DD/ 1220 ? TD/TT: 11/24/23 1237 ? Litigation Services Manager: ? Procedure Note Donotarjuninterpreter, Image - 12/07/2023 [facility] [address] [place] [address] Mammography Report Signed Patient: Lorraine Rainey#: [id number] : 1970Acct:[id number] Age/Sex: 53 / FADM Date: 11/24/23 Loc: HO.MAMMO Attending Dr: Bianca Shearer MD Ordering Physician: Wade Shearerults: 1Negative Date of Service: 11/24/23Follow Up: 1 Year From Orig inal Mammogram Procedure(s): MM tomosynthesis screening BI Accession Number(s): [id number] cc: Bianca Shearer EXAMINATION: MM SCREENING DIGITAL [...] OV> 12/07/232016 DD/ 1220 TD/TT: 11/24/23 1237 Litigation Services Manager: Bianca Shearer MD IMG BI PROCEDURES Edited Resul t - Final * (ABNORMAL) Lipid Panel, Standard (11/04/2022 9:21 AM EDT) Triglycerides 58 <150 mg/dL [facility] Comment:Desirable Triglyceri de: less than 150 mg/dLBorderline High Triglyceride 150-199 mg/dLHigh Triglyceride: 200-499 mg/dLVery High Triglyceride: greater than or equal to 5OO mg/dL Cholesterol 214(H) <200 mg/dL [facility] Comment:Desirable Cholestero l: less than 200 mg/dLBorderline High Cholesterol: 200-239 mg/dLHigh Cholesterol: greater than 239 mg/dL LDL Cholesterol Calculated 148(H) <100 mg/dL [facility] Comment:Desirable LDL: less than 100 mg/dLNear Optimal/Above Optimal LDL: 110- 129 mg/dLBorderline High LDL: 130-159 mg/dLHigh LDL: 160-189 mg/dLVery High LDL: greater than or equal to 190 mg/dL HDL Cholesterol 55 >40 mg/dL [facility] Comment:Desirable HDL: great er than 40 mg/dL Note: This HDL assay may give artificially low results in patients with liver disease. Blood Venous blood specimen / Unknown 11/04/2022 9:21 AM EDT 11/04/2022 11:00 AM EDT Bianca Shearer MD LAB BLOOD ORDERABLES Final Res ult [facility] [address] [place] [phone] * ALBUMIN, RANDOM URINE W/CREATININE (08/27/2021 9:10 AM EDT) Pathologist [facility] Microalbumin Urine 0.3 See Note: mg/dL [facility] [...] Creatinine, Urine 107 20 - 275 mg/dL [facility] 08/27/2021 9:10 AM EDT Alethea Simon MD LAB URINE ORDERABLES Final Result [facility] [address] * HEPATITIS C AB W/REFL TO HCV RNA, QN, PCR (07/13/2021 11:10 AM EDT) HEPATITIS C ANTIBODY NON-REACT YUE NON-REACT YUE [facility] INDEX 0.01 <1.00 [facility] Comment: ?? HCV antibody was non-reactive. There is no laboratory ?? evidence of HCV infection. ?? In most cases, no further action is required. However, if recent HCV exposure is suspected, a test for HCV RNA (test code 97531) is suggested. ?? For additional information please refer to http://education.CallistoTV/faq/BGS46n9 (This link is being provided for informational/ educational purposes only.) ?? 07/13/2021 11:1 0 AM EDT Zamzam Prado NP HISTORICAL/NON ORDERABLE LABS F inal Result Performing Organization Address [facility] Co de Phone Number [facility] [address] [place] [address], * HIV 1/2 ANTIGEN/ANTIBODY,FOURTH GENERATION W/RFL (07/13/2021 11:10 AM EDT) HIV-1/2 ANTIGEN AND ANTIBODIES, 4TH GENERATION W/ REFLEX NON-REACT YUE NON-REACT YUE [facility] Comment: HIV-1 antigen and HIV-1/HIV-2 [...] ? For additional information please refer to http://education.CallistoTV/faq/FUS229 (This link is being provided for informational/ educational purposes only.) ? The performance of this assay has not been clinically validated in patients less than 2 years old. ?? 07/13/2021 11:1 0 AM EDT Zamzam Prado NP LAB BLOOD ORDERABLES Final Resu lt Performing Organization Address [facility] de Phone Number [facility] [address] [place] [address], * THINPREP TIS PAP AND HPV mRNA E6/E7 REFLEX HPV 16,18/45 (01/08/2021 1:59 PM EDT) Pathologist [facility] Clinical Information: None given [facility] COMMENT SEE COMMENT [facility] [...] has been evaluated with computer assisted technology. [employer] [facility] Machine Hamper Maker: SEE COMMENT [facility] Comment: BROOKE CT(ASCP) CT screening location: [address] ??[phone] HPV nRNA E6/E7 Not Detected Not Detected [facility] Comment: Methodology: Veterans Service Officer-Mediated Amplification This assay detects E6/E7 viral messenger RNA (mRNA) from 14 high-risk HPV types (16,18,31,33,35,39,45,51,52,56,58,59,66,68). ? The analytical performance characteristics of this assay have been determined by [employer]. The modifications have not been cleared or approved by the FDA. This assay has been validated pursuant to the CLIA regulations and is used for clinical purposes. ?? For additional information, please refer to http://education.CallistoTV/faq/ZIO029h2 (This link if provided for information/ educational purposes only.) Interpretation/Re sult: Negative for intraepithelial lesion or malignancy. [employer] [facility] LMP: [id number] [facility] Prev. BX: NONE GIVEN [facility] Prev. PAP: NONE GIVEN [facility] SOURCE: [employer] [facility] Statement Of Adequacy: SEE COMMENT [facility] Comment: Satisfactory for evaluation. Endocervical/transformation zone component present. 01/08/2021 1:59 PM EDT us Danielle Hightower MD LAB PATHOLOGY ORDERABLES Megan reed Result [employer] [facility] [address] from Last 3 Months or Most Recently Relevant to Health Maintenance Insurance [facility] C3 Care Teams Catalyst Recovery Operator Relationship Specialty Start Date End Date Bianca Shearer MD [address] [place] [address] PCP - General Family Medicine 11/26/21 David Clark FNP [address] [place] [address] Nurse Practitioner Family Medicine 01/24/23
--- OUTSIDE RECORDS SUMMARY | 2024-07-12 20:34 | XMS_ITS | Encounter Summary ---
Author Organization [employer] [facility] Address [address] [place] [address] Care Team Providers Care Drapery Head Former Name Role Phone Bianca Shearer MD Primary Care Provider David Clark Unavailable Unavailable Reason for Referral * Imaging (Routine) - Pending Review Specialty Diagnoses / Procedures Referred By Contaurelia t Referred To Contact Radiology Diagnoses Hematuria, unspecified type Procedures US Renal Complete Kasey Calvo NP [address] [place] [address] Phone: tel: fax: Referral ID Status Reason Start Date Expiration Date V isits Requested Visits Authorized [id number] Pending Review 07/12/2024 07/12/2025 1 1 Reason for Visit * Reason Comments UTI Encounter Details Date Type Department Care Team (Late st Contact Info) Description 07/12/2024 2:00 PM EDT Office Visit [facility] [address] [place] [address] Kasey Calvo NP [address] [place], [place] [phone] Burning with urination (Primary Dx); Glucose found in urine on examination; Abnormal urinalysis; Hematuria, unspecified type Social History Tobacco Use Types Packs/Day Years [...] Mass Index 30.55 07/12/2024 2:12 PM EDT documented in this encounter Progress Notes * Kasey Calvo, LILIYA - 07/12/2024 2:00 PM EDT SUBJECTIVE: Farnaz Rainey is a 53 y.o. female who presents to the [facility] [place] for a sick visit. Denies recent illness, injury, or hospitalization. HPI States she was out and about today and felt intense pelvic pressure with need to urinate. reports burning with urination, appearance was cloudy, reddish-pink and there was pink spot on the toilet paper after wiping. States this happened twice before she came in today. Denies vaginal discharge, itching, or bleeding. States LMP 01/2023. Has history of diabetes and reports home glucose reading of 300 mg/dL this morning. Reports med compliance but states her sugars have been elevated since January 2024. Reports increased sugar intakeand drinks about 2-3 16 oz bottles of water a day. Review of Systems Constitutional: Negative. Negative for chills and fever. Respiratory: Negative for chest tightness and shortness of breath. Cardiovascular: Negative for chest pain. Gastrointestinal: Negative for abdominal pain, constipation, diarrhea and nausea. Endocrine: Positive for polydipsia and polyphagia. Negative for polyuria. Genitourinary: Positive for dyspareunia, hematuria and pelvic pain. Negative for dysuria. Musculoskeletal: Negative for arthralgias, back pain, myalgias and neck pain. Skin: Negative. Negative for rash and wound. Neurological: Negative for weakness, light-headedness and headaches. Psychiatric/Behavioral: Negative for behavioral problems, confusion, decreased concentration and suicidal ideas. OBJECTIVE: Visit Vitals BP (!) 149/95 (BP Location: Right arm, Patient Position: Sitting, BP Cuff Size: Large adult) Pulse 96 Temp 98.2 ??F (36.8 ??C) (Oral) Resp 24 Ht 5' 5 (1.651 m) Wt 183 lb 9.6 oz (83.3 kg) SpO2 98% BMI 30.55 kg/m?? Smoking Status Former BSA 1.95 m?? Patient Active Problem List Diagnosis Anxiety disorder Gastroesophageal reflux disease without esophagitis Insomnia Pruritus Pure hypercholesterolemia Mood disorder ([facility]) Tobacco dependence syndrome Subacute cough Bacterial vaginosis Vaginal discharge Chronic pain of both knees Elevated blood pressure reading in office without diagnosis of hypertension Perimenopause Type 2 diabetes mellitus with hyperglycemia ([facility]) Chronic use of opiate drug for therapeutic purpose Office Visit on 07/12/2024 Component Date Value Ref Range Status Color, UA 07/12/2024 Dark [place] Final Clarity, UA 07/12/2024 Turbid Final Glucose, UA 07/12/2024 Trace Final 500mg/dL Bilirubin, UA 07/12/2024 Negative Final Ketones, UA 07/12/2024 Positive Final Spec Grav, UA 07/12/2024 1.030 Final Blood, UA 07/12/2024 Positive (A) Negative, None Detected Final large pH, UA 07/12/2024 5.5 Final Protein, UA 07/12/2024 Trace Final 100 mg/dL Urobilinogen, UA 07/12/2024 1.0 Final Leukocytes, UA 07/12/2024 Negative Negative, Rare, Trace Final Nitrite, UA 07/12/2024 Negative Negative, None Detected Final Appearance, UA 07/12/2024 turbid Final QC Media Lot # 07/12/2024 [id number] Final Lot# Expiration Date 07/12/2024 22,826 Final Glucose Blood, POC 07/12/2024 231 (A) 60 - 200 mg/dL Final QC Media Lot # 07/12/2024 [id number] Final Lot# Expiration Date 07/12/2024 52,925 Final Physical Exam Vitals reviewed. Constitutional: General: She is not in acute distress. Appearance: Normal appearance. She is not ill-appearing. HENT: Head: Normocephalic and atraumatic. Right Ear: External ear normal. Left Ear: External ear normal. Nose: Nose normal. Eyes: General: No scleral icterus. Extraocular Movements: Extraocular movements intact. Cardiovascular: Rate and Rhythm: Normal rate and regular rhythm. Pulses: Normal pulses. Heart sounds: Normal heart sounds. Pulmonary: Effort: Pulmonary effort is normal. No respiratory distress. Breath sounds: Normal breath sounds. Abdominal: Tenderness: There is abdominal tenderness in the suprapubic area. There is no right CVA tenderness or left CVA tenderness. Musculoskeletal: General: Normal range of motion. Cervical back: Normal range of motion. Skin: General: Skin is warm and dry. Neurological: General: No focal deficit present. Mental Status: She is alert and oriented to person, place, and time. Gait: Gait normal. Psychiatric: Mood and Affect: Mood normal. Behavior: Behavior normal. Assessment/Plan Diagnoses and all orders for this visit: Burning with urination Comments: -UA negative for nitries and leukocytes -sample sent for culture. will treat accordingly -advised increased fluid intake -feminie hygine reviewed Orders: - POCT Urinalysis - Culture, Urine, Routine; Future Glucose found in urine on examination - POCT Glucose Abnormal urinalysis Comments: -POCT UA positive for glucose, blood and ketones -discussed concern for DKA associated with these findings. The patient is advised to go to ED for further evaluation, however her response to this is not definitive as she states the need to tend to her puppy. AMA form completed Orders: - Urinalysis Complete; Future Hematuria, unspecified type Comments: -unable to rule out uterine etiology -patient declines exam due to provider seems young . -renal US ordered to rule out kidney stone as probable cause -scheduled follow-up with PCP and appointment provided today -ED precautions reviewed Orders: - US Renal Complete; Future - Basic Metabolic Panel; Future documented in this encounter Plan of Treatment Upcoming Encounters Date Type Department Care Team (Late st Contact Info) Description 07/24/2024 11:30 AM EDT Office Visit [facility] [address] [place] [address] Bianca Shearer MD [address] [place] [address] 08/15/2024 9:30 AM EDT Clinical Support [address] [address] Heidi Castañeda RN Scheduled Orders Name Type Priority Associated Diagnoses Orde r Schedule Culture, Urine, Routine Microbiology Routine Burning with urination Expected: 07/12/2024 (Approximate), Expires: 07/12/2025 Urinalysis Complete Lab Routine Abnormal urinalysis Expected: 07/12/2024 (Approximate), Expires: 07/12/2025 US Renal Complete Imaging Routine Hematuria, unspecified type Expected: 07/12/2024, Expires: 07/12/2025 Basic Metabolic Panel Lab Routine Hematuria, unspecified type Expected: 07/12/2024 (Approximate), Expires: 07/12/2025 documented as of this encounter Procedures Procedure Name Priority Date/Time Associated Diagnosis Comments POCT GLUCOSE Routine 07/12/2024 2:56 PM EDT Glucose found in urine on examination POCT URINALYSIS DIPSTICK Routine 07/12/2024 2:45 PM EDT Burning with urination documented in this encounter Results * (ABNORMAL) POCT Glucose (07/12/2024 2:56 PM EDT) Glucose Blood, POC 231(A) 60 - 200 mg/dL QC Media Lot # [id number] Lot# Expiration Date 52,925 Blood Capillary blood specimen / Unknown 07/12/2024 2:56 PM EDT [facility] POINT OF CARE TEST ENTER/EDIT O RDERABLES [...] Media Lot # [id number] Lot# Expiration Date 22,826 Urine 07/12/2024 2:45 PM EDT [facility] POINT OF CARE TEST ENTER/EDIT O RDERABLES Final Result documented in this encounter Visit Diagnoses Diagnosis Burning with urination- Primary Dysuria Glucose found in urine on examination Glycosuria Abnormal urinalysis Other nonspecific finding on examination of urine Hematuria, unspecified type documented in this encounter Additional Health Concerns Assessment Noted Time PHQ-9 Depression Total Score: 5 08/15/19 24 9:39 AM EDT documented as of this encounter Care Teams Drapery Head Former Relationship Specialty Start Date End Date Bianca Shearer MD [address] [place] [address] PCP - General Family Medicine 11/26/21 David Clark FNP [address] [place] [address] Nurse Practitioner Family Medicine 01/24/23 documented as of this encounter
--- OUTSIDE RECORDS SUMMARY | 2024-07-12 20:34 | XMS_ITS | Encounter Summary ---
Author Organization [employer] Address [address] 7[address] [place] [address] Care Team Providers Care Expanded Duty Dental Assistant Name Role Phone Bianca Shearer MD Primary Care Provider [phone] David Clark Unavailable Unavailable Reason for Visit * Reason Comments Med Refill Encounter Details Date Type Department Care Team ([facility] st Contact Info) Description 02/01/2024 Refill [facility] [address] [place], [place] [phone] Bianca Shearer MD [address] [place] [address] Chronic pain of right knee Social History [...] Description 07/24/2024 11:30 AM EDT Office Visit [facility] [address] [place] [address] Bianca Shearer MD [address] [place] [address] 08/15/2024 9:30 AM EDT Clinical Support [address] [address] Heidi Castañeda, SARAH BETH documented as of this encounter Visit Diagnoses Diagnosis Chronic pain of right knee documented in this encounter Additional Health Concerns Assessment Noted Time PHQ-9 Depression Total Score: 5 08/15/19 24 9:39 AM EDT documented as of this encounter Care Teams Expanded Duty Dental Assistant Relationship Specialty Start Date End Date Bianca Shearer MD [address] [place] [phone] PCP - General Family Medicine 11/26/21 David Clark FNP [address] [place] [address] Nurse Practitioner Family Medicine 01/24/23 documented as of this encounter
--- OUTSIDE RECORDS SUMMARY | 2024-07-12 20:34 | XMS_ITS | Encounter Summary ---
Author Organization [employer] Address [address] 7[address] [place] [address] Care Team Providers Care Graduate Assistant Name Role Phone Bianca Shearer MD Primary Care Provider [phone] David Clark Unavailable Unavailable Reason for Visit * Reason Onset Date Comments Nurse Triage 07/12/2024 Encounter Details Date Type Department Care Team ([facility] st Contact Info) Description 07/12/2024 Telephone [facility] [address] [place], [place] [phone] Bianca Shearer MD [address] [place], [place] [phone] Nurse Triage Social History Tobacco Use Types Packs/Day Years [...] encounter Miscellaneous Notes * Telephone Encounter - Janet Charles RN - 07/12/2024 11:11 AM EDT Called pt. She states that she has been having Cloudy urination and pressure on and off when she urinates ever since she woke up this am. No fever. Pt. Does have lower abdominal pain. 10/20. Pt states I don't know if I can make it into the clinic and can Just call in RX for me? I stated that pt. Will need to be seen and have urine check to be able to get a RX. Pt. States Well I'm walking mydog right now so I will come in when I'm done . I advised pt. That walk in has lunch from 02-10 and that she can come to [facility] walk in for 1pm and be seen in the order in which she arrives. Pt. Agrees with plan and will come to walk in. Protocol Used: Urinary Symptoms (Adult) Protocol-Based Disposition: See in Office or Video Visit Today Video visit offer not recorded Positive Triage Questions: * Urinating more frequently than usual (i.e., frequency) OR new-onset of the feeling of an urgent need to urinate (i.e., urgency) *pain with urination and cloudy colored urine * Patient wants to be seen * All higher-acuity triage questions were negative * Telephone Encounter - Rossy Coopermitra Hernandez - 07/12/2024 11:01 AM EDT Symptom: Urine Symptoms Outcome: Schedule a same-day appointment or talk to a nurse or provider today Reason: Caller denied all higher acuity questions The caller accepted this outcome. [phone] documented in this encounter Plan of Treatment Upcoming Encounters Date Type Department Care Team (Late st Contact Info) Description 07/24/2024 11:30 AM EDT Office Visit [address] [address] Bianca Shearer MD [address] [place] [address] 08/15/2024 9:30 AM EDT Clinical Support [address] [address] Heidi Castañeda RN documented as of this encounter Visit Diagnoses Not on filedocumented in this encounter Additional Health Concerns Assessment Noted Time PHQ-9 Depression Total Score: 5 08/15/19 24 9:39 AM EDT documented as of this encounter Care Teams Graduate Assistant Relationship Specialty Start Date End Date Bianca Shearer MD [address] [place] [phone] PCP - General Family Medicine 11/26/21 David Clark FNP [address] [place] [address] Nurse Practitioner Family Medicine 01/24/23 documented as of this encounter
[2024-07-12 20:36] LABS: Appearance Urine Cloudy; Color Urine Yellow; Glucose Urine UA 100 mg/dL (Negative); Leukocyte Esterase Urine Negative (Negative); Nitrite Urine Negative (Negative); PH 5.5 (5.0-9.0); Specific Gravity - Urine >= 1.030 (1.005-1.025); UMIC TRIGGER UACC YES; Urine Blood Small (1+) (Negative); Urine Ketones 15 mg/dL (Negative); Urine Protein 30 (1+) mg/dL (Neg-Trace)
[2024-07-12 20:41] LABS: Bacteria Urine Trace (None Seen); Hyaline Casts Urine 0-2 /LPF (0-2); RBC Urine >20 /HPF (0-2); WBC Urine 0-5 /HPF (0-5)
[2024-07-12 20:56] LABS: Alanine Aminotransferase 83 U/L (0-31); Albumin Level 4.3 g/dL (3.5-5.0); Alkaline Phosphatase 100 U/L (39-117); Anion Gap 15 (12-20); Aspartate Amino Transferase 44 U/L (5-31); Bilirubin Total 0.5 mg/dL (0.0-1.0); Blood Urea Nitrogen 9 mg/dL (9-16); Calcium 9.8 mg/dL (8.4-10.2); Carbon Dioxide 27 mmol/L (22-29); Chloride 104 mmol/L (96-108); Creatinine Clr Calc Pharmacy 91.4; Estimated Glomerular Filt Rate > 60; Glucose Random 192 mg/dL (60-115); Potassium 3.5 mmol/L (3.3-5.1); Sodium 142 mmol/L (135-145); Total Protein 7.4 g/dL (6.5-8.0)
[2024-07-12 23:03] VITALS: BP 143/101; PULSE 76; RESP 16; TEMP 36.8; O2SAT 98
[2024-07-13 00:42] VITALS: BP 144/108; PULSE 73; RESP 16; TEMP 36.2; O2SAT 98
[2024-07-13 00:52] LABS: Glucose, Whole Blood 158 mg/dL (60-115)
[2024-07-13 00:57] VITALS: BP 144/108; PULSE 73; RESP 16; TEMP 36.2; O2SAT 98
== END 2024-07-13 00:59 | disposition home or self-care (01) ==
PROVIDERS: Nurse Practitioner Family; Emergency Provider Internal Medicine; PCP General Practice
DX: E11.65 Type 2 diabetes mellitus with hyperglycemia (principal); R82.90 Unspecified abnormal findings in urine
CPT/HCPCS: 36415; 80053; 81001; 82010; 82803; 82947; 85025; 99283

== ENCOUNTER 2024-08-20 10:38 | Outpatient (REF) | payer MEDICAID, SELFPAY ==
--- NOTE | ~2024-08-20 | US_ITS ---
EXAMINATION: US KIDNEY BILATERAL HISTORY: BLOOD IN URINE TECHNIQUE: Real-time grayscale ultrasound imaging of the kidneys was performed and images were reviewed. COMPARISON: There are no prior studies available for comparison. FINDINGS: Right kidney: The right kidney measures 10.6 x 4.6 x 5.1 cm. Renal parenchymal echotexture and thickness are normal. There are no masses. There is a nonobstructing 4 x 3 x 2 mm upper pole calculus. There is no hydronephrosis. Left Kidney: The left kidney measures 10.3 x 5.3 x 4.2 cm. Renal parenchymal echotexture and thickness are normal. There are no masses. There is a nonobstructing calculus at the upper pole measuring 3 x 3 x 2 mm. There is no hydronephrosis. US/US renal BI IMPRESSION: Bilateral nephrolithiasis as described. Electronically signed by: Estevan Galvez MD 08/20/2024 11:12 AM EDT
--- OUTSIDE RECORDS SUMMARY | 2024-08-20 12:27 | XMS_ITS | Encounter Summary ---
Author Organization [employer] Address [address] 7t [place] [address] Care Team Providers Care Dental Hygiene Professor Name Role Phone Bianca Shearer MD Primary Care Provider [phone] David Clark Unavailable Unavailable Encounter Details Date Type Department Care Team (Late st Contact Info) Description 11/11/2022 Orders Only [facility] [address] [place], [place] [phone] Bianca Shearer MD [address] [place], [place] [phone] Social History Tobacco Use Types Packs/Day Years [...] Care Team (Late st Contact Info) Description 12/16/2024 11:30 AM EDT Clinical Support [facility] [address] [place] [address] Heidi Castañeda RN documented as of this encounter Procedures Procedure Name Priority Date/Time Associated Diagnosis Comments CANCELLED CHEMISTRY Routine 06/20/2023 1 2:18 PM EDT BI MAMMOGRAM SCREENING TOMOSYNTHESIS BILATERAL Routine 11/18/2022 12:50 PM EDT documented in this encounter Results * Cancelled Chemistry (06/20/2023 12:18 PM EDT) Cancelled Chemistry SEE NOTE [facility] Comment:B12 UNABLE TO BE PER FORMED DUE TO INCORRECT CONTAINER TYPERECEIVED 06/20/2023 12:1 8 PM EDT 06/20/2023 1:42 PM EDT Maria D Leo ANP HISTORICAL/NON ORDERABLE LABS Fi nal Result [facility] [address] [place] [address] [phone] * BI Mammogram Screening Tomosynthesis Bilateral (11/18/2022 12:50 PM EDT) Anatomical Region Laterality Modality Breast Bilateral Mammography 11/18/2022 12:5 0 PM EDT Narrative 12/05/2022 9:40 PM EDT ? [facility] ? [address] ?[place] [address] ? Mammography Report ? Signed ? Patient: Rainey,Farnaz ?MR#: [id number] ?? [id number] ? : 1970 ?Acct:[id number] ? Age/Sex: 52 / F ?ADM Date: 09/08/23 ? Loc: HO.MAMMO ? Attending Dr: Danielle Hightower MD ? Ordering Physician: Danielle Hightower MD ?Results: 1Nega ?? tive ? Date of Service: 11/18/22 ?Follow Up: 1 Year From Orig ?? inal Mammogram ? Procedure(s): MM tomosynthesis screening BI ?? Accession Number(s): [id number] ? cc: Bianca Shearer; Danielle Hightower MD [...] 12/05/226 ? DD/ 1250 ? TD/TT: ? Assembler Filters: ? Procedure Note Donotmoisester, Image - 12/06/2022 [facility] [place] [address] Mammography Report Signed Patient: Lorraine Rainey#: [id number] : 1970Acct:[id number] Age/Sex: 52 / FADM Date: 11/18/22 Loc: HO.MAMMO Attending Dr: Danielle Hightower MD Ordering Physician: Danielle Hightowerults: 1Nega tive Date of Service: 11/18/22Follow Up: 1 Year From Orig inal Mammogram Procedure(s): MM tomosynthesis screening BI Accession Number(s): [id number] cc: Bianca Shearer; Danielle Hightower MD EXAMINATION: [...] signed by Earline Noel MD in OV> 12/05/226 DD/ 1250 TD/TT: Assembler Filters: us Danielle Hightower MD IMG BI PROCEDURES Edited Resu lt - Final documented in this encounter Visit Diagnoses Not on filedocumented in this encounter Additional Health Concerns Assessment Noted Time PHQ-9 Depression Total Score: 0 09/28/19 23 9:26 AM EDT documented as of this encounter Care Teams Dental Hygiene Professor Relationship Specialty Start Date End Date Bianca Shearer MD [address] [place] [address] PCP - General Family Medicine 11/26/21 David Clark FNP [address] [place] [address] Nurse Practitioner Family Medicine 01/24/23 documented as of this encounter
== END 2024-08-20 10:39 | disposition home or self-care (01) ==
LOC: HO.US 10:38
PROVIDERS: PCP General Practice; Visit Provider Nurse Practitioner
DX: R31.9 Hematuria, unspecified (principal)
CPT/HCPCS: 76775

== ENCOUNTER → 2024-08-20 10:46 | Outpatient (BNV) | payer MEDICAID, SELFPAY | PROVIDERS: PCP General Practice; Visit Provider Radiology Diagnostic Radiology | DX: N20.0 Calculus of kidney (principal) | CPT/HCPCS: 76775 ==

== ENCOUNTER 2024-12-04 14:32 | Outpatient (REF) | payer MEDICAID, SELFPAY ==
--- OUTSIDE RECORDS SUMMARY | 2024-12-04 15:15 | XMS_ITS | Encounter Summary ---
Author Organization [employer] Address [address] [place] [address] 7t [place] [address] Care Team Providers Care Fabrication Technician Name Role Phone iBanca Shearer MD Primary Care Provider David Clark Unavailable Unavailable Reason for Referral * Imaging (Routine) - Authorized Specialty Diagnoses / Procedures Referred By Contac t Referred To Contact Radiology Diagnoses Encounter for screening mammogram for malignant neoplasm of breast Procedures BI Mammogram Screening Tomosynthesis Bilateral Bianca Shearer MD [address] [place] [address] Phone: tel: fax: [address] Phone: tel: fax: Referral ID Status Reason Start Date Expiration Date V isits Requested Visits Authorized [id number] Authorized 12/04/2024 12/04/2025 1 1 Encounter Details Date Type Department Care Team (Late st Contact Info) Description 12/04/2024 3:15 PM EDT Office Visit [facility] [address] [place], [place] [phone] Bianca Shearer MD [address] [place], [place] [phone] Encounter for screening mammogram for malignant neoplasm of breast (Primary Dx); Type 2 diabetes mellitus with hyperglycemia, without long-term current use of insulin (CMS/HCC); Other specified anxiety disorders; Primary insomnia; Encounter for immunization Social History Tobacco Use Types Packs/Day Years Used Date Smoking Tobacco: Former Cigarettes Q uit: 10/11/2021 Smokeless Tobacco: Never Alcohol Use Standard Drinks/Week Comments Not Asked 0 (1 standard drink = 0.6 oz pur e alcohol) Depression Answer Date Recorded Patient Health Questionnaire-9 Score 5 10/07/2024 Patient Health Questionnaire-9 Score 5 10/07/2024 Last PHQ-9: Questionnaire Data Not on file 0 10/07/2024 Housing Stability Answer Date Recorded What is [...] Date Recorded Patient Health Questionnaire-2 Score 1 10/07/2024 Internet Access Answer Date Recorded Internet Access [...] Sign Reading Time Taken Comments Blood Pressure 120/92 12/04/2024 2:52 PM EDT Pulse 89 12/04/2024 2:52 PM EDT Temperature 33.8 C (92.9 F) 12/04/2024 2:52 PM EDT Respiratory Rate 22 12/04/2024 2:52 PM EDT Oxygen Saturation 99% 12/04/2024 2:52 PM EDT Inhaled Oxygen Concentration - - Weight 74.9 kg (165 lb 3.2 oz) 12/04/2024 2:52 P M EDT Height 167.6 cm (5' 6 ) 12/04/2024 2:52 PM EDT Body Mass Index 26.66 12/04/2024 2:52 PM EDT documented in this encounter Plan of Treatment Upcoming Encounters Date Type Department Care Team (Late st Contact Info) Description 12/16/2024 11:30 AM EDT Clinical Support [facility] [address] [place] [phone] Heidi Castañeda RN Scheduled Orders Name Type Priority Associated Diagnoses Orde r Schedule BI Mammogram Screening Tomosynthesis Bilateral Imaging Routine Encounter for screening mammogram for malignant neoplasm of breast Expected: 12/04/2024, Expires: 02/03/2026 documented as of this encounter Procedures Procedure Name Priority Date/Time Associated Diagnosis Comments POCT GLUCOSE Routine 12/04/2024 3:19 PM EDT Type 2 diabetes mellitus with hyperglycemia, without long-term current use of insulin ([facility]) documented in this encounter Results * POCT Glucose (12/04/2024 3:19 PM EDT) Glucose Blood, POC 141 60 - 200 mg/dL QC Media Lot # [id number] Lot# Expiration Date Blood Capillary blood specimen / Unknown 12/04/2024 3:19 PM EDT Bianca Shearer MD POINT OF CARE TEST ENTER/EDIT ORDERABLES Final Result documented in this encounter Visit Diagnoses Diagnosis Encounter for screening mammogram for malignant neoplasm of breast- Primary Type 2 diabetes mellitus with hyperglycemia, without long-term current use of insulin ([facility]) Other specified anxiety disorders Primary insomnia Persistent disorder of initiating or maintaining sleep Encounter for immunization documented in this encounter Additional Health Concerns Assessment Noted Time PHQ-9 Depression Total Score: 5 10/07/ 25 9:43 AM EDT documented as of this encounter Care Teams Fabrication Technician Relationship Specialty Start Date End Date Bianca Shearer MD [address] [place] [address] PCP - General Family Medicine 11/26/21 David Clark FNP [address] [place] [address] Nurse Practitioner Family Medicine 01/24/23 documented as of this encounter
[2024-12-04 16:12] LABS: Appearance Urine Clear; Glucose Urine UA Negative (Negative); PH 5.5 (5.0-9.0); Specific Gravity - Urine 1.020 (1.005-1.025); UMIC TRIGGER UA YES
[2024-12-04 16:48] LABS: Alanine Aminotransferase 45 U/L (0-31); Albumin Level 4.5 g/dL (3.5-5.0); Alkaline Phosphatase 75 U/L (39-117); Anion Gap 10 (12-20); Aspartate Amino Transferase 30 U/L (5-31); Blood Urea Nitrogen 6 mg/dL (9-16); Calcium 9.6 mg/dL (8.4-10.2); Carbon Dioxide 29 mmol/L (22-29); Chloride 105 mmol/L (96-108); Cholesterol 222 mg/dL (<200); Estimated Glomerular Filt Rate > 60; HDL Cholesterol 44 mg/dL (>40); Potassium 4.0 mmol/L (3.3-5.1); Sodium 140 mmol/L (135-145); Total Protein 7.4 g/dL (6.5-8.0); Triglycerides 119 mg/dL (<150)
[2024-12-04 17:04] LABS: Microalbum/Creatinine Ratio Ur 3.8 ug/mg cr (<30)
--- OUTSIDE RECORDS SUMMARY | 2024-12-04 17:11 | XMS_ITS | Encounter Summary ---
Author Organization [employer] Address [address] [facility] 7t [place] [address] Care Team Providers Care Information Technology Officer Name Role Phone Bianca Shearer MD Primary Care Provider [phone] David Clark Unavailable Unavailable Encounter Details Date Type Department Care Team ([facility] st Contact Info) Description 11/29/[address] [facility] MEDICINE [address] [place], [place] [phone] Bianca Shearer MD [address] [place], [place] [phone] Social History Tobacco Use Types Packs/Day Years [...] Telephone Encounter - Emily Davenport LPN - 11/29/2024 10:56 AM EDT Script was sent to [facility] #[id number] on 10/01/24 #90 with 3 refills. * Telephone Encounter - Yessica Nj - 11/29/2024 10:54 AM EDT TC from pt requesting medication refill. Medications needing refill : melatonin 5 MG tablet To be sent to: [facility]/pharmacy #[id number] documented in this encounter Plan of Treatment Upcoming Encounters Date Type Department Care Team (Late st Contact Info) Description 12/16/2024 11:30 AM EDT Clinical Support [facility] MEDICINE [address] [place] [address] [phone] Heidi Castañeda RN documented as of this encounter Visit Diagnoses Not on filedocumented in this encounter Additional Health Concerns Assessment Noted Time PHQ-9 Depression Total Score: 5 10/08/19 25 9:43 AM EDT documented as of this encounter Care Teams Information Technology Officer Relationship Specialty Start Date End Date Bianca Shearer MD [address] [place] [address] PCP - General Family Medicine 11/26/21 David Clark FNP [address] [place] [address] Nurse Practitioner Family Medicine 01/24/23 documented as of this encounter
--- OUTSIDE RECORDS SUMMARY | 2024-12-04 17:11 | XMS_ITS | Encounter Summary ---
Author Organization [employer] Address [address] [facility] 7t [place] [address] Care Team Providers Care Policy Loan Calculator Name Role Phone Bianca Shearer MD Primary Care Provider [phone] David Clark Unavailable Unavailable Reason for Visit * Reason Comments Med Refill Encounter Details Date Type Department Care Team (Late st Contact Info) Description 05/30/2024 Refill [facility] MEDICINE 230 [place], [place] [phone] Bianca Shearer MD [address] [place], [place] [phone] Other specified anxiety disorders Social History Tobacco [...] Description 12/16/2024 11:30 AM EDT Clinical Support [facility] MEDICINE 230 [place] [address] Heidi Castañeda, SARAH BETH documented as of this encounter Visit Diagnoses Diagnosis Other specified anxiety disorders documented in this encounter Additional Health Concerns Assessment Noted Time PHQ-9 Depression Total Score: 5 08/15/19 24 9:39 AM EDT documented as of this encounter Care Teams Policy Loan Calculator Relationship Specialty Start Date End Date Bianca Shearer MD [address] [place] [address] PCP - General Family Medicine 11/26/21 David Clark FNP [address] [place] [address] Nurse Practitioner Family Medicine 01/24/23 documented as of this encounter
--- OUTSIDE RECORDS SUMMARY | 2024-12-04 17:11 | XMS_ITS | Encounter Summary ---
Author Organization [employer] Address 75 [facility] 7t [place] [address] Care Team Providers Care Parts Department Supervisor Name Role Phone Bianca Shearer MD Primary Care Provider [phone] David Clark Unavailable Unavailable Reason for Visit * Reason Comments Med Refill Encounter Details Date Type Department Care Team (Late st Contact Info) Description 02/01/2024 Refill [facility] MEDICINE [address] [place], [place] [phone] Bianca Shearer MD 230 [place], [place] [phone] Chronic pain of right knee Social History [...] Description 12/16/2024 11:30 AM EDT Clinical Support [facility] MEDICINE [address] [place] [address] Heidi Castañeda, SARAH BETH documented as of this encounter Visit Diagnoses Diagnosis Chronic pain of right knee documented in this encounter Additional Health Concerns Assessment Noted Time PHQ-9 Depression Total Score: 5 08/15/19 24 9:39 AM EDT documented as of this encounter Care Teams Parts Department Supervisor Relationship Specialty Start Date End Date Bianca Shearer MD [address] [place] [address] PCP - General Family Medicine 11/26/21 David Clark FNP [address] [place] [address] Nurse Practitioner Family Medicine 01/24/23 documented as of this encounter
--- OUTSIDE RECORDS SUMMARY | 2024-12-04 17:11 | XMS_ITS | Encounter Summary ---
Author Organization [employer] Address 75 [facility] 7t [place] [address] Care Team Providers Care Produce Department Supervisor Name Role Phone Bianca Shearer MD Primary Care Provider [phone] David Clark Unavailable Unavailable Reason for Visit * Reason Comments Med Refill Encounter Details Date Type Department Care Team (Late st Contact Info) Description 11/30/2024 Refill [facility] [address] [place] [address] [phone] Bianca Shearer MD 230 [place], [place] [phone] Scabies exposure Social History Tobacco Use Types Packs/Day Years [...] Description 12/16/2024 11:30 AM EDT Clinical Support [facility] MEDICINE 230 [place] [address] Heidi Castañeda, SARAH BETH documented as of this encounter Visit Diagnoses Diagnosis Scabies exposure documented in this encounter Additional Health Concerns Assessment Noted Time PHQ-9 Depression Total Score: 5 10/08/19 25 9:43 AM EDT documented as of this encounter Care Teams Produce Department Supervisor Relationship Specialty Start Date End Date Bianca Shearer MD 230 [place] [address] PCP - General Family Medicine 11/26/21 David Clark FNP 230 [place] [address] Nurse Practitioner Family Medicine 01/24/23 documented as of this encounter
--- OUTSIDE RECORDS SUMMARY | 2024-12-04 17:11 | XMS_ITS | Encounter Summary ---
Author Organization [employer] Address 75 [facility] 7t [place] [address] Care Team Providers Care Ops Analyst Name Role Phone Bianca Shearer MD Primary Care Provider [phone] David Clark Unavailable Unavailable Reason for Visit * Reason Comments Med Refill Encounter Details Date Type Department Care Team (Late st Contact Info) Description 07/29/2024 Refill [facility] MEDICINE 230 [place], [place] [phone] Bianca Shearer MD [address] [place], [place] [phone] Other specified anxiety disorders; Chronic pain of right knee Social History [...] Description 12/16/2024 11:30 AM EDT Clinical Support [facility] MEDICINE 230 [place] [address] Heidi Castañeda RN documented as of this encounter Visit Diagnoses Diagnosis Other specified anxiety disorders Chronic pain of right knee documented in this encounter Additional Health Concerns Assessment Noted Time PHQ-9 Depression Total Score: 5 08/15/19 24 9:39 AM EDT documented as of this encounter Care Teams Ops Analyst Relationship Specialty Start Date End Date Bianca Shearer MD [address] [place] [address] PCP - General Family Medicine 11/26/21 David Clark FNP [address] [place] [address] Nurse Practitioner Family Medicine 01/24/23 documented as of this encounter
--- OUTSIDE RECORDS SUMMARY | 2024-12-04 17:11 | XMS_ITS | Encounter Summary ---
Author Organization [employer] Address 75 [facility] 7t [place] [address] Care Team Providers Care Windows Vmware Administrator Name Role Phone Bianca Shearer MD Primary Care Provider [phone] David Clark Unavailable Unavailable Reason for Visit * Reason Onset Date Comments Med Refill 11/29/2024 Encounter Details Date Type Department Care Team (Late st Contact Info) Description 11/29/2024 Refill [facility] MEDICINE 230 [place], [place] [phone] Bianca Shearer MD 230 [place], [place] [phone] Chronic pain of both knees Social History Tobacco Use Types Packs/Day Years [...] encounter Miscellaneous Notes * Telephone Encounter - Yessica Nj - 11/29/2024 10:53 AM EDT TC from pt requesting medication refill. Medications needing refill : traMADol (Ultram) 50 MG tablet To be sent to: [facility]/pharmacy #[id number] - [address] documented in this encounter Plan of Treatment Upcoming Encounters Date Type Department Care Team (Late st Contact Info) Description 12/16/2024 11:30 AM EDT Clinical Support [facility] MEDICINE [address] [place] [address] Heidi Castañeda, SARAH BETH documented as of this encounter Visit Diagnoses Diagnosis Chronic pain of both knees documented in this encounter Additional Health Concerns Assessment Noted Time PHQ-9 Depression Total Score: 5 10/08/19 25 9:43 AM EDT documented as of this encounter Care Teams Windows Vmware Administrator Relationship Specialty Start Date End Date Bianca Shearer MD 230 [place] [address] PCP - General Family Medicine 11/26/21 David Clark FNP [address] [place] [address] Nurse Practitioner Family Medicine 01/24/23 documented as of this encounter
--- OUTSIDE RECORDS SUMMARY | 2024-12-04 17:11 | XMS_ITS | Encounter Summary ---
Author Organization [employer] Address 75 [facility] 7t [place] [address] Care Team Providers Care Fusion Operator Name Role Phone Bianca Shearer MD Primary Care Provider [phone] David Clark Unavailable Unavailable Reason for Visit * Reason Onset Date Comments chart prep 12/03/2024 Encounter Details Date Type Department Care Team ([facility] st Contact Info) Description 12/03/2024 Telephone [facility] MEDICINE 230 [place], [place] [phone] Bianca Shearer MD [address] [place], [place] [phone] chart prep Social History Tobacco Use Types Packs/Day Years [...] encounter Miscellaneous Notes * Telephone Encounter - Karon Leija MA - 12/03/2024 10:18 AM EDT Chart Prep Labs: not done pt will be In to complete Images: not done Referrals: complete Vaccines due: Covid, Flu, PCV20, Zoster, and DTAP Screenings: eye exam and foot exam Overdue care gaps: Glucose, SBIRT, SDOH, PHQ-9, and DREW-7 documented in this encounter Plan of Treatment Upcoming Encounters Date Type Department Care Team (Late st Contact Info) Description 12/16/2024 11:30 AM EDT Clinical Support [facility] MEDICINE [address] [place] [address] Heidi Castañeda RN documented as of this encounter Visit Diagnoses Not on filedocumented in this encounter Additional Health Concerns Assessment Noted Time PHQ-9 Depression Total Score: 5 10/08/19 25 9:43 AM EDT documented as of this encounter Care Teams Fusion Operator Relationship Specialty Start Date End Date Bianca Shearer MD [address] [place] [address] PCP - General Family Medicine 11/26/21 David Clark FNP [address] [place] [address] Nurse Practitioner Family Medicine 01/24/23 documented as of this encounter
--- OUTSIDE RECORDS SUMMARY | 2024-12-04 17:11 | XMS_ITS | Encounter Summary ---
Author Organization [employer] Address 75 [facility] 7t [place] [address] Care Team Providers Care Hotel Service Manager Name Role Phone Bianca Shearer MD Primary Care Provider [phone] David Clark Unavailable Unavailable Reason for Visit * Reason Comments Med Refill Encounter Details Date Type Department Care Team (Late st Contact Info) Description [address] [facility] MEDICINE [address] [place], [place] [phone] Bianca Shearer MD [address] [place], [place] [phone] Other specified anxiety disorders; Chronic pain of [...] Description 12/16/2024 11:30 AM EDT Clinical Support [facility] MEDICINE [address] [place] [address] Heidi Castañeda RN documented as of this encounter Visit Diagnoses Diagnosis Other specified anxiety disorders Chronic pain of right knee documented in this encounter Additional Health Concerns Assessment Noted Time PHQ-9 Depression Total Score: 5 08/15/19 24 9:39 AM EDT documented as of this encounter Care Teams Hotel Service Manager Relationship Specialty Start Date End Date Bianca Shearer MD 230 [place] [address] PCP - General Family Medicine 11/26/21 David Clark FNP [address] [place] [address] Nurse Practitioner Family Medicine 01/24/23 documented as of this encounter
--- OUTSIDE RECORDS SUMMARY | 2024-12-04 17:11 | XMS_ITS | Encounter Summary ---
Author Organization [employer] Address [address] [place] [address] 7t [place] [address] Care Team Providers Care Press Tender Star Signal Name Role Phone Bianca Shearer MD Primary Care Provider [phone] David Clark Unavailable Unavailable Reason for Visit * Reason Comments Med Refill Encounter Details Date Type Department Care Team (Late st Contact Info) Description 12/30/2022 Refill [facility] MEDICINE [address] [place] [address] [phone] Emily Sheikh DO 230 [place], [place] [phone] Social History Tobacco Use Types Packs/Day Years [...] Description 12/16/2024 11:30 AM EDT Clinical Support [facility] MEDICINE [address] [place] [phone] Heidi Castañeda RN documented as of this encounter Visit Diagnoses Not on filedocumented in this encounter Additional Health Concerns Assessment Noted Time PHQ-9 Depression Total Score: 1 12/30/19 23 8:54 AM EDT documented as of this encounter Care Teams Press Tender Star Signal Relationship Specialty Start Date End Date Bianca Shearer MD 230 [place] [address] PCP - General Family Medicine 11/26/21 David Clark FNP 230 [place] [address] Nurse Practitioner Family Medicine 01/24/23 documented as of this encounter
--- OUTSIDE RECORDS SUMMARY | 2024-12-04 17:11 | XMS_ITS | Encounter Summary ---
Author Organization [employer] Address 75 [facility] 7t [place] [address] Care Team Providers Care Public Information Officer Name Role Phone Bianca Shearer MD Primary Care Provider [phone] Davdi Clark Unavailable Unavailable Encounter Details Date Type Department Care Team (Latest Contact Info) Description 12/04/2024 Travel Social History Tobacco Use Types Packs/Day [...] Description 12/16/2024 11:30 AM EDT Clinical Support [facility] MEDICINE 230 [place] [address] Heidi Castañeda, SARAH BETH documented as of this encounter Visit Diagnoses Not on filedocumented in this encounter Additional Health Concerns Assessment Noted Time PHQ-9 Depression Total Score: 5 10/08/19 25 9:43 AM EDT documented as of this encounter Care Teams Public Information Officer Relationship Specialty Start Date End Date Bianca Shearer MD 230 [place] [address] PCP - General Family Medicine 11/26/21 David Clark FNP [address] [place] [address] Nurse Practitioner Family Medicine 01/24/23 documented as of this encounter
--- OUTSIDE RECORDS SUMMARY | 2024-12-04 17:11 | XMS_ITS | Encounter Summary ---
Author Organization [employer] Address 75 [facility] 7t [place] [address] Care Team Providers Care Sail Repairer Name Role Phone Bianca Shearer MD Primary Care Provider [phone] David Clark Unavailable Unavailable Reason for Visit * Reason Onset Date Comments Med Refill 02/01/2024 Encounter Details Date Type Department Care Team ([facility] st Contact Info) Description 02/01/2024 Telephone [facility] MEDICINE [address] [place], [place] [phone] Bianca Shearer MD 230 [place], [place] [phone] Med Refill Social History Tobacco Use Types [...] Davenport LPN - 02/01/2024 9:21 AM EST UPHOLSTERY TECHNICIAN checked on 02/01/24 medication should still have refills. * Telephone Encounter - Dee Gama - 02/01/2024 9:05 AM EST TC from pt requesting medication refill. Medications needing refill : zolpidem (Ambien) 10 MG tablet To be sent to: [facility]/pharmacy #[id number] - [address] documented in this encounter Plan of Treatment Upcoming Encounters Date Type Department Care Team (Late st Contact Info) Description 12/16/2024 11:30 AM EDT Clinical Support [facility] MEDICINE [address] [place] [address] Heidi Castañeda RN documented as of this encounter Visit Diagnoses Not on filedocumented in this encounter Additional Health Concerns Assessment Noted Time PHQ-9 Depression Total Score: 5 08/15/19 24 9:39 AM EDT documented as of this encounter Care Teams Sail Repairer Relationship Specialty Start Date End Date Bianca Shearer MD [address] [place] [address] PCP - General Family Medicine 11/26/21 David Clark FNP [address] [place] [address] Nurse Practitioner Family Medicine 01/24/23 documented as of this encounter
--- OUTSIDE RECORDS SUMMARY | 2024-12-04 17:11 | XMS_ITS | Encounter Summary ---
Author Organization [employer] Address 75 [facility] 7t [place] [address] Care Team Providers Care Appeals Representative Name Role Phone Bianca Shearer MD Primary Care Provider [phone] David Clark Unavailable Unavailable Reason for Visit * Reason Comments Med Refill Encounter Details Date Type Department Care Team (Late st Contact Info) Description 02/01/2024 Refill [facility] MEDICINE 230 [place], [place] [phone] Bianca Shearer MD 230 [place], [place] [phone] Social History Tobacco Use Types Packs/Day Years [...] 11:30 AM EDT Clinical Support [facility] MEDICINE [address] [place] [address] Heidi Castañeda RN documented as of this encounter Visit Diagnoses Not on filedocumented in this encounter Additional Health Concerns Assessment Noted Time PHQ-9 Depression Total Score: 5 08/15/19 24 9:39 AM EDT documented as of this encounter Care Teams Appeals Representative Relationship Specialty Start Date End Date Bianca Shearer MD [address] [place] [address] PCP - General Family Medicine 11/26/21 David Clark FNP [address] [place] [address] Nurse Practitioner Family Medicine 01/24/23 documented as of this encounter
--- OUTSIDE RECORDS SUMMARY | 2024-12-04 17:11 | XMS_ITS | Encounter Summary ---
Author Organization [employer] Address [address] [facility] 7t [place] [address] Care Team Providers Care Coloring Machine Operator Name Role Phone Bianca Shearer MD Primary Care Provider [phone] David Clark Unavailable Unavailable Reason for Visit * Reason Comments Med Refill Encounter Details Date Type Department Care Team ([facility] Contact Info) Description 08/03/[address] [phone] Bianca Shearer MD [address] [place] [address] [phone] Gastroesophageal reflux disease without esophagitis Social History [...] Encounters Date Type Department Care Team (Late Contact Info) Description 12/16/2024 11:30 AM EDT Clinical Support [facility] [address] [place] [address] [phone] Heidi Castañeda RN documented as of this encounter Visit Diagnoses Diagnosis Gastroesophageal reflux disease without esophagitis Esophageal reflux documented in this encounter Additional Health Concerns Assessment Noted Time PHQ-9 Depression Total Score: 4 07/01/19 23 9:23 AM EDT documented as of this encounter Care Teams Coloring Machine Operator Relationship Specialty Start Date End Date Bianca Shearer MD [address] [place] [address] PCP - General Family Medicine 11/26/21 David Clark FNP [address] [place] [address] Nurse Practitioner Family Medicine 01/24/23 documented as of this encounter
--- OUTSIDE RECORDS SUMMARY | 2024-12-04 17:11 | XMS_ITS | Encounter Summary ---
Author Organization [employer] Address 75 [facility] 7t [place] [address] Care Team Providers Care Assistant Manager Airside Operations Name Role Phone Bianca Shearer MD Primary Care Provider [phone] David Clark Unavailable Unavailable Reason for Visit * Reason Comments Med Refill Encounter Details Date Type Department Care Team (Late st Contact Info) Description 11/29/2024 Refill [facility] MEDICINE 230 [place], [place] [phone] Bianca Shearer MD 230 [place], [place] [phone] Other specified anxiety disorders Social History Tobacco [...] Description 12/16/2024 11:30 AM EDT Clinical Support [facility] MEDICINE [address] [place] [address] Heidi Castañeda, SARAH BETH documented as of this encounter Visit Diagnoses Diagnosis Other specified anxiety disorders documented in this encounter Additional Health Concerns Assessment Noted Time PHQ-9 Depression Total Score: 5 10/08/19 25 9:43 AM EDT documented as of this encounter Care Teams Assistant Manager Airside Operations Relationship Specialty Start Date End Date Bianca Shearer MD [address] [place] [address] PCP - General Family Medicine 11/26/21 David Clark FNP [address] [place] [address] Nurse Practitioner Family Medicine 01/24/23 documented as of this encounter
--- OUTSIDE RECORDS SUMMARY | 2024-12-04 17:11 | XMS_ITS | Encounter Summary ---
Author Organization [employer] Address [address] [facility] [address] [place] [address] Care Team Providers Care Thread Laster Name Role Phone Bianca Shearer MD Primary Care Provider [phone] David Clark Unavailable Unavailable Reason for Visit * Reason Comments Med Refill Encounter Details Date Type Department Care Team (Late st Contact Info) Description 12/29/2022 Refill [facility] MEDICINE [address], [place] [phone] Bianca Shearer MD [address], [place] [phone] Chronic pain of right knee Social History [...] AM EDT documented as of this encounter Functional Status * Over the past 2 weeks, how often have you been bothered by any of the following problems? Question Answer Date of Assessment Author Patient Health Questionnaire -2 Score 0 12/29/2022 8:54 AM EDT Ashley Harman MA * If you checked off any problems on this questionnaire so far, Question Answer Date of Assessment Author How difficult have these problems made it for you to do your work, take care of things at home, or get along with other people? Not difficult at all 12/29/2022 8:54 AM Adonis Multani MA * Over the past 2 weeks, how often have you been bothered by any of the following problems? Question Answer Date of Assessment Author Little interest or pleasure in doing things Not at all 12/29/2022 8:54 AM Ashley Multani MA Feeling down, depressed, or hopeless Not at all 12/29/2022 8:54 AM Ashley Multani MA Trouble falling or staying asleep, or sleeping too much Several days 12/29/2022 8:54 AM Ngozi Multani MA Feeling tired or having little energy Not at all 12/29/2022 8:54 AM Ashley Multani MA Poor appetite or overeating Not at all 12/29/2022 8: 54 AM Ngozi Multani MA Feeling bad about yourself - or that you are a failure or have let yourself or your family down Not at all 12/29/2022 8:54 AM Ashley Multani MA Trouble concentrating on things, such as reading the newspaper or watching television Not at all 12/29/2022 8:54 AM Ashley Multani MA Moving or speaking so slowly that other people could have noticed? Or the opposite - being so fidgety or restless that you have been moving around a lot more than usual. Not at all 12/29/2022 8:54 AM Ashley Multani MA Thoughts that you would be better off or hurting yourself in some way Not at all 12/29/2022 8:54 AM Adonis Multani MA Patient Health Questionnaire-9 Score 1 12/29/2022 8:54 AM Anai Multani MA documented as of this encounter Plan of Treatment Upcoming Encounters Date Type Department Care Team (Late st Contact Info) Description 12/16/2024 11:30 AM EDT Clinical Support [facility] MEDICINE [address] [place] [address] Heidi Castañeda, RN documented as of this encounter Visit Diagnoses Diagnosis Chronic pain of right knee documented in this encounter Additional Health Concerns Assessment Noted Time PHQ-9 Depression Total Score: 1 12/30/19 23 8:54 AM EDT documented as of this encounter Care Teams Thread Laster Relationship Specialty Start Date End Date [place] [address] PCP - General Family Medicine 11/26/21 David Clark FNP [address] [place] [id number] Nurse Practitioner Family Medicine 01/24/23 documented as of this encounter
--- OUTSIDE RECORDS SUMMARY | 2024-12-04 17:11 | XMS_ITS | Clinical Summary ---
Author Organization [employer] Address [address] [place] [address] Care Team Providers Care Remarketing Manager Name Role Phone Bianca Shearer MD Primary Care Provider [phone] David Clark Unavailable Unavailable Allergies No known active allergies Medications TRUEplus Lancets 33G miscIndications :Type 2 diabetes mellitus without complication, without long-term current use of insulin ([facility]) USE TO TEST BLOOD SUGAR TWICE A DAY 100 each 5 08/04/19 24 Active hydrOXYzine HCl (Atarax) 50 MG tabletIndicatio ns:Pruritus TAKE 1 TABLET BY MOUTH EVERY 8 HOURS NEEDED FOR ITCHING OR SLEEP 60 tablet 11 08/15/19 24 Active Blood Glucose Monitoring Suppl (FreeStyle Lite) device Inject 1 each under the skin 2 times daily. 1 each 08/15/19 24 Active cholecalciferol (Vitamin D-3) 50 MCG (2000 UT) tablet TAKE 1 TABLET BY MOUTH EVERY DAY 90 tablet 3 12/04/19 24 Active atorvastatin (Lipitor) 20 MG tablet TAKE 1 TABLET BY MOUTH EVERY DAY 90 tablet 3 12/04/19 24 Active famotidine (Pepcid) 20 MG tablet Take [...] 026 Active glucose blood (FREESTYLE LITE) test stripIndication s:Type 2 diabetes mellitus with hyperglycemia, unspecified whether snf insulin use ([facility]) Use one strip to test blood sugar twice daily 100 strip 5 04/11/19 25 Active Alcohol Swabs (CVS Prep) 70 % pads USE DIRECTED TO TEST BLOOD SUGAR 100 each 11 05/01/19 25 Active naloxone (Narcan) 4 mg/0.1 mL nasal sprayIndication s:Long-term current use of opiate analgesic Administer 1 spray (4 mg) into affected nostril(s) if needed for opioid reversal. 2 each 2 08/16/19 25 Active Dulaglutide (Trulicity) 1.5 MG/0.5ML solution auto-injector Inject 1.5 mg under the skin 1 (one) time per week. 2 mL 3 08/31/19 25 Active Blood Glucose Monitoring Suppl (FreeStyle [place] Lite) w/Device kitIndications: Type 2 diabetes mellitus without complication, unspecified whether extermination supervisor insulin use ([facility]) USE DIRECTED TO TEST BLOOD SUGAR TWICE A DAY 1 kit 10/01/19 25 Active cetirizine (ZyrTEC) 10 MG tabletIndicatio ns:Sore throat Take 1 tablet (10 mg) by mouth Once per day. 90 tablet 3 10/02/19 25 026 Active olmesartan (Benicar) 5 MG tabletIndicatio ns:Elevated blood pressure reading in office without diagnosis of hypertension Take 1 tablet (5 mg) by mouth Once per day. 90 tablet 3 10/08/19 25 026 Active triamcinolone (Kenalog) 0.1 % cream APPLY THIN COAT TOPICALLY 2 TIMES DAILY FOR UP TO 10 DAYS AT A TIME 90 g 2 11/01/19 25 Active zolpidem (Ambien) 10 MG tabletIndicatio ns:Other specified anxiety disorders TAKE 1 TABLET BY MOUTH EVERY DAY AT BEDTIME NEEDED FOR SLEEP 30 tablet 11/30/19 25 Active traMADol (Ultram) 50 MG tabletIndicatio ns:Chronic pain of both knees Take 2 tablets (100 mg) by mouth every 12 (twelve) hours if needed for severe pain for up to 28 days. 112 tablet 11/30/19 25 025 Active permethrin (Elimite) 5 % creamIndication s:Scabies exposure APPLY TO SKIN FROM HAIRLINE TO TOES AND WASH OFF 8-10 HOURS LATER. 60 g 12/03/19 25 Active QUEtiapine (SEROquel) 100 MG tabletIndicatio ns:Other specified anxiety disorders TAKE 1 TABLET BY MOUTH EVERY MORNING 90 tablet 3 12/05/19 25 Active melatonin 5 MG tabletIndicatio ns:Primary insomnia Take 1 tablet (5 mg) by mouth if needed at bedtime (insomnia). 90 tablet 3 12/05/19 25 Active QUEtiapine (SEROquel) 200 MG tablet Take 2 tablets (400 mg) by mouth at bedtime. 180 tablet 3 08/15/19 24 025 Discontinued QUEtiapine (SEROquel) 100 MG tabletIndicatio ns:Other specified anxiety disorders TAKE 1 TABLET BY MOUTH EVERY MORNING 90 tablet 3 08/27/19 25 025 Discontinued(R eorder (will not trigger notification to Pharmacy)) melatonin 5 MG tabletIndicatio ns:Primary insomnia Take 1 tablet (5 mg) by mouth if needed at bedtime (insomnia). 90 tablet 3 10/02/19 25 025 Discontinued(R eorder (will not trigger notification to Pharmacy)) permethrin (Elimite) 5 % creamIndication s:Scabies exposure apply to skin from hairline to toes and wash off 8-10 hours later 60 g 10/02/19 25 025 Discontinued zolpidem (Ambien) 10 MG tabletIndicatio ns:Other specified anxiety disorders TAKE 1 TABLET BY MOUTH AT BEDTIME NEEDED FOR SLEEP 30 tablet 10/31/19 25 025 Discontinued traMADol (Ultram) 50 MG tabletIndicatio ns:Chronic pain of both knees Take 2 tablets (100 mg) by mouth every 12 (twelve) hours if needed for severe pain for up to 28 days. 112 tablet 10/31/19 25 025 Discontinued(R eorder (will not trigger [...] <130 2 hour post prandial goal: <180 Long-term current use of opiate analgesic 2024 Overview (04/13/2024): Dx: Bilateral knee pain Rx: Tramadol 100mg BID Last DIRECTOR CALL agreement: Tier II (visit every 3 months) [...] Plan (04/13/2024 11:10 AM EST): Tramadol prnon DIRECTOR CALL agreement for this Will increase to Tramadol [...] (10/24/2022 9:11 AM EDT): Letter written for [facility] Assessment & Plan (09/27/2022 10:00 AM EDT): With intermittent psychotic delusions (insect infestation), did not mention today. Cont current medications. F/U with me in 3 months. I have reassured her that this provider has no plans to leave [facility] for at least another year, and we [...] A1c: 6.8 Referred to [facility] and Erin Figueroa for fresh food, she [...] Encounters Date Type Department Care Team Description 12/04/2024 3:15 PM EDT Office Visit [facility] [address] [place] [address] Bianca Shearer MD Encounter for screening mammogram for malignant neoplasm of breast (Primary Dx); Type 2 diabetes mellitus with hyperglycemia, without long-term current use of insulin ([facility]); Other specified anxiety disorders; Primary insomnia; Encounter for immunization 12/04/2024 Travel 12/03/2024 Telephone [facility] [address] [place] [address] Bianca Shearer MD chart prep 11/30/2024 Refill [facility] [address] [place] [address] Bianca Shearer MD Scabies exposure 11/29/2024 Refill [facility] [address] [place] [address] Bianca Shearer MD Other specified anxiety disorders 11/29/2024 Telephone [facility] [address] [place] [phone] Bianca Shearer MD 11/29/2024 Refill [facility] [address] [place] [address] Bianca Shearer MD Chronic pain of both knees 10/30/2024 Refill [facility] [address] [place] [phone] Bianca Shearer MD 10/30/2024 Refill [facility] [address] [place] [phone] Bianca Shearer MD Other specified anxiety disorders 10/30/2024 Refill [facility] [address] [place] [address] Bianca Shearer MD Chronic pain of both knees (Primary Dx) 10/01/2024 7:40 PM EDT Office Visit [facility] [address] [place] [phone] Bianca Shearer MD Type 2 diabetes mellitus with hyperglycemia, unspecified whether snf insulin use (CMS/HCC) (Primary Dx); Sore throat; Facial pain; Mood disorder (CMS/HCC); Mood disorder with psychosis (CMS/HCC); Primary insomnia; Elevated blood pressure reading in office without diagnosis of hypertension; Scabies exposure; Non-recurrent acute suppurative otitis media of right ear without spontaneous rupture of tympanic membrane 10/01/2024 Travel 10/01/2024 Telephone [facility] [address] [place] [phone] Bianca Shearer MD Nurse Triage 09/27/2024 Refill [facility] [address] [place] [address] Bianca Shearer MD Type 2 diabetes mellitus without complication, unspecified whether snf insulin use (CMS/HCC) 09/26/2024 Refill [facility] [address] [place] [address] Bianca Shearer MD Other specified anxiety disorders 09/26/2024 Refill [facility] [address] [place] [address] Bianca Shearer MD Chronic pain of right knee 09/26/2024 Telephone [facility] [address] [place], [place] [phone] Bianca Shearer MD Prior Authorization from Last 3 Months Immunizations Immunization Administration Dates Next Due Hep A, Adult 12/21/2010,04/29/2010 Hep B, adult 12/19/2008, 8,12/19/2006,10/24 Influenza injectable quadriv alent IIV4 with preservative 01/06/2016,12/15/2014 Influenza injectable quadriv alent preservative free 04/21/2023,11/30/2020,01/31/2019,05/17,06/16/2014 Influenza, Split (incl. kandi fied surface antigen) 02/27/2012 Influenza, seasonal, injecta ble, preservative free 12/04/2024 Moderna Covid-19 Vaccine 12+ 06/23/2020,05/27/19 Moderna Covid-19 [...] Mass Index 26.66 12/04/2024 2:52 PM EDT Plan of Treatment Upcoming Encounters Date Type Department Care Team (Late st Contact Info) Description 12/16/2024 11:30 AM EDT Clinical Support [address] [phone] Heidi Castañeda, RN Health Maintenance Due Date Last Done Comments CT Colonography 1971 FIT DNA/Cologuard 1971 FIT 1971 FOBT 1970 Sigmoidoscopy 1970 Disability Screening 1971 Eye Exam 08/29/1981 Alcohol/Substance Use Screening 1983 Pneumococcal Vaccine: 50+ Years (2 of 2 - PCV) 07/08/2014 07/08/2013 Zoster Vaccines (1 of 2) 08/29/2021 DTaP/Tdap/Td Vaccines (2 - Td or Tdap) 06/08/2022 06/08/2012, 10/11/2004 Diabetes: Urine Protein Screening 08/27/2022 12/04/2024, 08/27/2021, 10/28/2020 Lipid Panel 11/05/2023 12/04/2024, 10/12, 08/27/2021, Additional history exists Diabetes: Foot Exam 06/19/2024 06/20/2023, 06/20/2023, 06/20/2023, Additional history exists COVID-19 Vaccine ( season) 2024 01/15/2022, 03/09/2021, 06/23/2020, Additional history exists Mammogram 11/23/2024 11/24/2023, 0910/2022, 11/12/2021, Additional history exists Diabetes: Hemoglobin A1C 01/01/2025 025, 04/11/2024, 04/03/2024, Additional history exists SDOH Screening 04/02/2025 04/02/2024 Depression Screening 10/07/2025 10/07/2024, 10/08/19 25 Tobacco Screening 12/04/2025 12/04/2024 Cervical Cancer Screening 01/08/2026 HPV/Cotest 01/08/2026 01/08/2021 Pap Smear 01/08/2026 01/08/2021 Colonoscopy 10/12/2026 10/12/2021 Colorectal Cancer Screening 10/12/2026 RSV Patients and Patients Aged 60 years or older (1 - 1-dose 75+ series) 08/29/2046 Hepatitis B Vaccines Completed 12/19/2008, 04/18/2007, 12/19/2006, Additional history exists Hepatitis A Vaccines Aged Out 12/21/2010, 04/29/19 11 No longer eligible based on patient's age to complete this topic HIV Screening Completed 07/13/2021 Hepatitis C Screening Completed 07/13/2021 Influenza Vaccine Completed 12/04/2024, , 11/30/2020, Additional history exists HIB Vaccines Aged Out No longer eligi ble based on patient's age to complete this topic HPV Vaccines Aged Out No longer eligi ble based on patient's age to complete this topic IPV Vaccines Aged Out No longer eligi ble based on patient's age to complete this topic Meningococcal B Vaccine Aged Out No l onger eligible based on patient's age to complete [...] hyperglycemia, without long-term current use of insulin ([facility]/HCC) COMPREHENSIVE METABOLIC PANEL Routine 12/04/2024 2:37 PM EDT Type 2 diabetes mellitus with hyperglycemia, unspecified whether snf insulin use (CMS/[facility]) ALBUMIN, RANDOM URINE W/CREATININE Routine 12/04/2024 2:37 PM EDT Type 2 diabetes mellitus with hyperglycemia, unspecified whether snf insulin use (CMS/[facility]) LIPID PANEL, STANDARD Routine 12/04/2024 2:37 PM EDT Type 2 diabetes mellitus with hyperglycemia, unspecified whether extermination supervisor insulin use (CMS/[facility]) URINALYSIS, COMPLETE Routine 12/04/2024 2:37 PM EDT Abnormal urinalysis POCT GLYCATED HEMOGLOBIN, TOTAL Routine 10/01/2024 7:20 PM EDT Type 2 diabetes mellitus with hyperglycemia, unspecified whether extermination supervisor insulin use (CMS/HCC) POCT GLUCOSE Routine 10/01/2024 7:17 PM EDT Type 2 diabetes mellitus with hyperglycemia, unspecified whether snf insulin use (CMS/HCC) BI MAMMOGRAM SCREENING TOMOSYNTHESIS BILATERAL Routine 11/24/2023 12:20 PM EDT HM COLONOSCOPY Routine 10/12/2021 ZZZ HISTORICAL HEPATITIS C AB W/REFL TO HCV RNA, QN, PCR Routine 07/13/2021 11:10 AM EDT HIV 1/2 ANTIGEN/ANTIBODY, FOURTH GENERATION W/RFL Routine 07/13/2021 11:10 AM EDT THINPREP IMAGING PAP AND HPV MRNA E6/E7 WITH REFLEX TO HPV 16,18/45 Routine 01/08/2021 1:59 PM EDT from Last 3 Months or Most Recently Relevant to Health Maintenance Results * POCT Glucose (12/04/2024 3:19 PM EDT) Only the most recent of2 resultswithin the time period is included. Glucose Blood, POC 141 60 - 200 mg/dL QC Media Lot # [id number] Lot# Expiration Date Blood Capillary blood specimen / Unknown 12/04/2024 3:19 PM EDT Bianca Shearer MD POINT OF CARE TEST ENTER/EDIT ORDERABLES Final Result * Albumin, Random Urine W/Creatinine (12/04/2024 2:37 PM EDT) Creatinine, Urine 180.08 mg/dL [facility] Microalbumin Urine 7.0 mg/L [facility] Microalbum Creatinine Ratio Ur 3.8 <30 ug/mg cr [facility] Comment:Albumin/Creatinine R atio Reference Ranges: Normal: < 30 ug/mg creatinine Microalbuminuria: 30 - 300 ug/mg creatinineClinical Albuminuria: > 300 ug/mg creatinine Urine (Urine, Random) 12/04/2024 2:37 PM EDT 12/04/2024 3:57 PM EDT us Bianca Shearer MD LAB URINE ORDERABLES Final Res ult Performing Organization Address [facility] de Phone Number [facility] [address] [place] [phone] * (ABNORMAL) Urinalysis Complete (12/04/2024 2:37 PM EDT) Color Urine Yellow [facility] Appearance Urine Clear [facility] PH 5.5 5.0 - 9.0 [facility] Glucose Urine UA Negative Negative mg/dL [facility] Urine Blood Negative Negative [facility] Specific [place] - Urine 1.020 1.005 - 1.025 [facility] Urine Protein Negative Neg-Trace mg/dL [facility] Urine Ketones Negative Negative mg/dL [facility] Nitrite Urine Negative Negative [facility] Leukocyte Esterase Urine Small (1+)(A) Negative [facility] RBC Urine 0-2 0 - 2 /HPF [facility] Urine WBC 0-5 0 - 5 /HPF [facility] Urine Squamous Epithelial Cell 3-5 0 - 2 /HPF [facility] Urine Bacteria None Seen None Seen [facility] Hyaline Casts, Urine 0-2 0 - 2 /LPF [facility] Urine Urine specimen obtained by clean catch procedure / Unknown 12/04/2024 2:37 PM EDT 12/04/2024 3:57 PM EDT us Kasey Calvo NP LAB URINE ORDERABLES Final Resu lt Performing Organization Address [facility]/ZIP Co de Phone Number [facility] [address] [place] [phone] * (ABNORMAL) Lipid Panel, Standard (12/04/2024 2:37 PM EDT) Triglycerides 119 <150 mg/dL [facility] Comment:Desirable Triglyceri de: less than 150 mg/dLBorderline High Triglyceride 150-199 mg/dLHigh Triglyceride: 200-499 mg/dLVery High Triglyceride: greater than or equal to 5OO mg/dL Cholesterol 222(H) <200 mg/dL [facility] Comment:Desirable Cholestero l: less than 200 mg/dLBorderline High Cholesterol: 200-239 mg/dLHigh Cholesterol: greater than 239 mg/dL LDL Cholesterol Calculated 155(H) <100 mg/dL [facility] Comment:Desirable LDL: less than 100 mg/dLNear Optimal/Above Optimal LDL: 110- 129 mg/dLBorderline High LDL: 130-159 mg/dLHigh LDL: 160-189 mg/dLVery High LDL: greater than or equal to 190 mg/dL HDL Cholesterol 44 >40 mg/dL [facility] Comment:Desirable HDL: great er than 40 mg/dL Note: This HDL assay may give artificially low results in patients with liver disease. Blood Venous blood specimen / Unknown 12/04/2024 2:37 PM EDT 12/04/2024 4:13 PM EDT us Bianca Shearer MD LAB BLOOD ORDERABLES Final Res ult [facility] [address] [place] [phone] * (ABNORMAL) Comprehensive Metabolic Panel (12/04/2024 2:37 PM EDT) Sodium 140 135 - 145 mmol/L [facility] Potassium 4.0 3.3 - 5.1 mmol/L [facility] Chloride 105 96 - 108 mmol/L [facility] Carbon Dioxide 29 22 - 29 mmol/L [facility] Anion Gap 10(L) 12 - 20 [facility] Urea Nitrogen (BUN) 6(L) 9 - 16 mg/dL [facility] Creatinine, Serum 0.65 0.5 - 1.4 mg/dL [facility] Estimated Glomerular Filt Rate >60 [facility] Comment:Chronic Kidney Disea se: Estimated GFR < 60 mL/min/1.64m9Kketkx Kidney Disease: Estimated GFR < 15 mL/min/1.73m2 Glucose 158(H) 60 - 115 mg/dL [facility] Calcium 9.6 8.4 - 10.2 mg/dL [facility] Bilirubin, Total 0.5 0.0 - 1.0 mg/dL [facility] Aspartate Amino Transferase 30 5 - 31 U/L [facility] Alanine Aminotransferase 45(H) 0 - 31 U/L [facility] Total Protein 7.4 6.5 - 8.0 g/dL [facility] Albumin Level 4.5 3.5 - 5.0 g/dL [facility] Alkaline Phosphatase 75 39 - 117 U/L [facility] Blood Venous blood specimen / Unknown 12/04/2024 2:37 PM EDT 12/04/2024 4:13 PM EDT Bianca Shearer MD LAB BLOOD ORDERABLES Final Res ult [facility] [address] [place] [address] [phone] * (ABNORMAL) POCT HGB A1C (10/01/2024 7:20 PM EDT) Hemoglobin A1C 7.6(A) 4.0 - 5.7 % QC Media Lot # [id number] Lot# Expiration Date ,603,630 Blood 10/01/2024 7:20 PM EDT Bianca Shearer MD POINT OF CARE TEST ENTER/EDIT ORDERABLES Final Result * BI Mammogram Screening Tomosynthesis Bilateral (11/24/2023 12:20 PM EDT) Anatomical Region Laterality Modality Breast Bilateral Mammography 11/24/2023 12:2 0 PM EDT Narrative 12/07/2023 8:20 PM EDT [facility] [address] [place], [place] [address] Mammography Report Signed Patient: Farnaz Rainey MR#: [id number] : 1970 Acct:[id number] Age/Sex: 53 / F ADM Date: 11/24/23 Loc: HO.MAMMO Attending Dr: Bianca Shearer MD Ordering Physician: Bianca Shearer Results: 1Negative Date of Service: 11/24/23 Follow Up: 1 Year From Orig inal Mammogram Procedure(s): MM tomosynthesis screening BI Accession Number(s): [id number] cc: Bianca Shearer EXAMINATION: MM SCREENING DIGITAL [...] Yadi Vogel DO 12/07/2023 08:17 PM EDT Dictated By: Yadi Vogel DO Signed By: <Electronically signed by Yadi Vogel DO in OV> 12/07/232016 DD/ 1220 TD/TT: 11/24/23 1237 Systems Integration Engineer: Procedure Note Donotuseinterpreter, Image - 12/07/2023 [facility] [address] [place] [address] Dr. Saldaña, [place] [address] Mammography Report Signed Patient: Lorraine Rainey#: [id number] : 1970Acct:[id number] Age/Sex: 53 / FADM Date: 11/24/23 Loc: HO.MAMMO Attending Dr: Bianca Shearer MD Ordering Physician: Wade Shearerults: 1Negative Date of Service: 11/24/23Follow Up: 1 Year From Orig inal Mammogram Procedure(s): MM tomosynthesis screening BI Accession Number(s): [id number] cc: Bianca Shearer EXAMINATION: MM SCREENING DIGITAL [...] Yadi Vogel DO 12/07/2023 08:17 PM EDT Dictated By: Yadi Vogel DO Signed By: <Electronically signed by Yadi Vogel DO in OV> 12/07/232016 DD/ 1220 TD/TT: 11/24/23 1237 Systems Integration Engineer: Bianca Shearer MD IMG BI PROCEDURES Edited Resul t - Final * Hm Colonoscopy (10/12/2021) Colonoscopy Normal Normal Narrative Janet Rodriguez - 10/12/2021 Recommended 5 years . See legacy note 10/12/2021 Historical Provider MD HEALTH MAINTENANCE Final Result * HEPATITIS C AB W/REFL TO HCV RNA, QN, PCR (07/13/2021 11:10 AM EDT) HEPATITIS C ANTIBODY NON-REACT YUE NON-REACT YUE [facility] INDEX 0.01 <1.00 [facility] Comment: HCV antibody was non-reactive. There is no laboratory evidence of HCV infection. In most cases, no further action is required. However, if recent HCV exposure is suspected, a test for HCV RNA (test code 87146) is suggested. For additional information please refer to http://[employer].Apprion/faq/JSL16n9 (This link is being provided for informational/ educational purposes only.) 07/13/2021 11:1 0 AM EDT Zamzam Prado NP HISTORICAL/NON ORDERABLE LABS F inal Result [facility] [address] * HIV 1/2 ANTIGEN/ANTIBODY,FOURTH GENERATION W/RFL (07/13/2021 11:10 AM EDT) HIV-1/2 ANTIGEN AND ANTIBODIES, 4TH GENERATION W/ REFLEX NON-REACT YUE NON-REACT YUE [facility] Comment: HIV-1 antigen and HIV-1/HIV-2 antibodies were not detected. There is no laboratory evidence of HIV infection. PLEASE NOTE: This information has been disclosed to you from records whose confidentiality may be protected by state law. If your state requires such protection, then the state law prohibits you from making any further disclosure of the information without the specific written consent of the person to whom it pertains, or as otherwise permitted by law. A general authorization for the release of medical or other information is NOT sufficient for this purpose. For additional information please refer to http://[employer].Apprion/faq/EKQ701 (This link is being provided for informational/ educational purposes only.) The performance of this assay has not been clinically validated in patients less than 2 years old. 07/13/2021 11:1 0 AM EDT us Zamzamstepan Prado [employer] OFFICER LAB BLOOD ORDERABLES Final Resu lt [facility] [address] [place] [address], [place] * THINPREP TIS PAP AND HPV mRNA E6/E7 REFLEX HPV 16,18/45 (01/08/2021 1:59 PM EDT) Clinical Information: None given [facility] COMMENT SEE COMMENT [facility] Comment: EXPLANATORY NOTE: The Pap is a screening test for cervical cancer. It is not a diagnostic test and is subject to false negative and false positive results. It is most reliable when a satisfactory sample, regularly obtained, is submitted with relevant clinical findings and history, and when the Pap result is evaluated along with historic and current clinical information. COMMENT: This Pap test has been evaluated with computer assisted technology. [facility] [employer] Salesperson: SEE COMMENT [facility] Comment: OTF COX(ASCP) CT screening location: [place] [address] HPV nRNA E6/E7 Not Detected Not Detected [facility] Comment: Methodology: Hand Violin Maker-Mediated Amplification This assay detects E6/E7 viral messenger RNA (mRNA) from 14 high-risk HPV types (16,18,31,33,35,39,45,51,52,56,58,59,66,68). The analytical performance characteristics of this assay have been determined by [employer]ment. The modifications have not been cleared or approved by the FDA. This assay has been validated pursuant to the CLIA regulations and is used for clinical purposes. For additional information, please refer to http://education.[employer].Zyncd/faq/SCP791i8 (This link if provided for information/ educational purposes only.) Interpretation/Re sult: Negative for intraepithelial lesion or malignancy. [facility] LMP: [id number] [facility] Prev. BX: NONE GIVEN [facility] Prev. PAP: NONE GIVEN [facility] SOURCE: Cervix [facility] Statement Of Adequacy: SEE COMMENT [facility] Comment: Satisfactory for evaluation. Endocervical/transformation zone component present. 01/08/2021 1:59 PM EDT us Danielle Hightower MD LAB PATHOLOGY ORDERABLES Megan reed Result [facility] [address] [place] [address], from Last 3 Months or Most Recently Relevant to Health Maintenance Insurance [employer] Care Teams Remarketing Manager Relationship Specialty Start Date End Date Bianca Shearer MD [address] [place], [place] [phone] PCP - General Family Medicine 11/26/21 David Clark FNP [address] [place], [place] Nurse Practitioner Family Medicine 01/24/23
--- OUTSIDE RECORDS SUMMARY | 2024-12-04 17:11 | XMS_ITS | Encounter Summary ---
Author Organization [employer] Address [address] [facility] 7t [place] [address] Care Team Providers Care High Density Finishing Operator Name Role Phone Bianca Shearer MD Primary Care Provider [phone] David Clark Unavailable Unavailable Encounter Details Date Type Department Care Team (Late st Contact Info) Description 11/11/2022 Orders Only [facility] [address] [place], [place] [phone] Bianca Shearer MD [address] [place], [place] [phone] Social History Tobacco Use Types Packs/Day Years [...] Description 12/16/2024 11:30 AM EDT Clinical Support [facility] [address] [place] [address] Heidi Castañeda RN documented as of this encounter Procedures Procedure Name Priority Date/Time Associated Diagnosis Comments CANCELLED CHEMISTRY Routine 06/20/2023 1 2:18 PM EDT BI MAMMOGRAM SCREENING TOMOSYNTHESIS BILATERAL Routine 11/18/2022 12:50 PM EDT documented in this encounter Results * Cancelled Chemistry (06/20/2023 12:18 PM EDT) Cancelled Chemistry SEE NOTE [facility] Comment:B12 UNABLE TO BE PER FORMED DUE TO INCORRECT CONTAINER TYPERECEIVED 06/20/2023 12:1 8 PM EDT 06/20/2023 1:42 PM EDT Maria D Rochelle ANP HISTORICAL/NON ORDERABLE LABS Fi nal Result [facility] [address] [place] [address] [phone] * BI Mammogram Screening Tomosynthesis Bilateral (11/18/2022 12:50 PM EDT) Anatomical Region Laterality Modality Breast Bilateral Mammography 11/18/2022 12:5 0 PM EDT Narrative 12/05/2022 9:40 PM EDT [facility] [address] [place] [address] Mammography Report Signed Patient: Farnaz Rainey MR#: [id number] 960 : 1970 Acct:[id number] Age/Sex: 52 / F ADM Date: 11/18/22 Loc: PRABHJOT Attending Dr: Danielle Hightower MD Ordering Physician: Danielle Hightower MD Results: 1Nega tive Date of Service: 11/18/22 Follow Up: 1 Year From Orig inal Mammogram Procedure(s): MM tomosynthesis screening BI Accession Number(s): [id number] cc: Nuno Shearer Michelle MD EXAMINATION: MM SCREENING DIGITAL BREAST TOMOSYNTHESIS, [...] signed by Earline Noel MD in OV> 12/05/22 2136 DD/ 1250 TD/TT: Barback: Procedure Note Donotuseinterpreter, Image - 12/06/2022 [facility] [address] [place] [address] Mammography Report Signed Patient: Lorraine Rainey#: [id number] 960 : 1970Acct:[id number] Age/Sex: 52 / FADM Date: 11/18/22 Loc: HO.MAMMO Attending Dr: Danielle Hightower MD Ordering Physician: Danielle Hightower MDResults: 1Nega tive Date of Service: 11/18/22Follow Up: 1 Year From Orig inal Mammogram Procedure(s): MM tomosynthesis screening BI Accession Number(s): [id number] cc: Nuno Shearer Michelle MD EXAMINATION: MM SCREENING DIGITAL BREAST TOMOSYNTHESIS, [...] signed by Earline Noel MD in OV> 12/05/22 2136 DD/ 1250 TD/TT: Barback: us Danielle Hightower MD IMG BI PROCEDURES Edited Resu lt - Final documented in this encounter Visit Diagnoses Not on filedocumented in this encounter Additional Health Concerns Assessment Noted Time PHQ-9 Depression Total Score: 0 09/28/19 23 9:26 AM EDT documented as of this encounter Care Teams High Density Finishing Operator Relationship Specialty Start Date End Date Bianca Shearer MD [address] [place] [address] PCP - General Family Medicine 11/26/21 David Clark FNP [address] [place] [address] Nurse Practitioner Family Medicine 01/24/23 documented as of this encounter
== END 2024-12-04 14:33 | disposition home or self-care (01) ==
LOC: HO.HHCL 14:32
PROVIDERS: Nurse Practitioner; PCP General Practice; Visit Provider General Practice
DX: E11.65 Type 2 diabetes mellitus with hyperglycemia (principal); R30.0 Dysuria; R82.90 Unspecified abnormal findings in urine
CPT/HCPCS: 36415; 80053; 80061; 81001; 82043; 82570; 87086

== ENCOUNTER 2025-02-28 13:46 | Outpatient (REF) | payer MEDICAID, SELFPAY ==
--- NOTE | ~2025-02-28 | MM_ITS ---
EXAMINATION: MM SCREENING DIGITAL BREAST TOMOSYNTHESIS, BILATERAL CLINICAL INFORMATION: Screening. Asymptomatic. COMPARISON: Mammography: Comparison is made with available priors TECHNIQUE: Digital breast mammography with tomosynthesis is performed in both the craniocaudal and mediolateral oblique views along with computer-aided detection (CAD). FINDINGS: The breasts are heterogeneously dense, which may obscure small masses. There are no significant masses, abnormal calcifications, or other abnormalities. MM/MM tomosynthesis screening BI IMPRESSION: No mammographic evidence of malignancy. ASSESSMENT: BI-RADS Category 1: Negative RECOMMENDATION: Routine annual mammography screening. 1 year F/U This examination should not preclude the clinical evaluation of a suspicious palpable abnormality. This patient's information was entered into a reminder system with a target due date for their next mammogram. Electronically signed by: Yadi Vogel DO 03/04/2025 04:22 PM [facility]
--- OUTSIDE RECORDS SUMMARY | 2025-02-28 15:27 | XMS_ITS | Encounter Summary ---
Author Organization [employer] Address 75 [facility] 7t [place] [address] Care Team Providers Care Manager International Name Role Phone Bianca Shearer MD Primary Care Provider [phone] David Clark Unavailable Unavailable Reason for Visit * Reason Comments Med Refill Encounter Details Date Type Department Care Team (Late st Contact Info) Description 2024 Refill [facility] [address] [place], [place] [phone] Bianca Shearer MD [address] [place], [place] [phone] Other specified anxiety disorders; Chronic pain of [...] Care Team (Late st Contact Info) Description 04/21/2025 11:30 AM EST Clinical Support [address] [address] Heidi Castañeda RN 05/09/2025 2:15 PM EST Office Visit [address] [address] Bianca Shearer MD [address] [place] [address] documented as of this encounter Visit Diagnoses Diagnosis Other specified anxiety disorders Chronic pain of right knee documented in this encounter Additional Health Concerns Assessment Noted Time PHQ-9 Depression Total Score: 5 08/15/19 24 9:39 AM EDT documented as of this encounter Care Teams Manager International Relationship Specialty Start Date End Date Bianca Shearer MD [address] [place] [address] PCP - General Family Medicine 11/26/21 David Clark FNP [address] [place] [address] Nurse Practitioner Family Medicine 01/24/23 documented as of this encounter
--- OUTSIDE RECORDS SUMMARY | 2025-02-28 15:27 | XMS_ITS | Encounter Summary ---
Author Organization [employer] Address [address] [facility] 7t [place] [address] Care Team Providers Care Legend Maker Name Role Phone Bianca Shearer MD Primary Care Provider [phone] David Clark Unavailable Unavailable Reason for Visit * Reason Onset Date Comments call baack request 12/27/2024 Encounter Details Date Type Department Care Team ([facility] st Contact Info) Description 12/27/2024 Telephone [facility] [address] [place], [place] [phone] Bianca Shearer MD [address] [place], [place] [phone] call baack request Social History Tobacco Use Types Packs/Day Years [...] encounter Miscellaneous Notes * Telephone Encounter - Sherry Rodrigez - 12/27/2024 12:28 PM EDT Tc from pt requesting an call back in regard of [facility] Contact pt at [phone] documented in this encounter Plan of Treatment Upcoming Encounters Date Type Department Care Team (Late st Contact Info) Description 04/21/2025 11:30 AM EST Clinical Support [address] [address] Heidi Castañeda RN 05/09/2025 2:15 PM EST Office Visit [facility] [address] [place] [address] Bianca Shearer MD [address] [place] [address] documented as of this encounter Visit Diagnoses Not on filedocumented in this encounter Additional Health Concerns Assessment Noted Time PHQ-9 Depression Total Score: 5 10/08/19 25 9:43 AM EDT documented as of this encounter Care Teams Legend Maker Relationship Specialty Start Date End Date Bianca Shearer MD [address] [place] [address] PCP - General Family Medicine 11/26/21 David Clark FNP [address] [place] [address] Nurse Practitioner Family Medicine 01/24/23 documented as of this encounter
--- OUTSIDE RECORDS SUMMARY | 2025-02-28 15:27 | XMS_ITS | Encounter Summary ---
Author Organization [employer] Address [address] [place] [address] 7t [place] [address] Care Team Providers Care Vice President Lending Name Role Phone Bianca Shearer MD Primary Care Provider [phone] David Clark Unavailable Unavailable Reason for Visit * Reason Comments Med Refill Encounter Details Date Type Department Care Team (Late st Contact Info) Description 12/29/[address] [facility] [address] [place] [phone] Bianca Shearer MD [address] [place] [phone] Chronic pain of right knee Social History [...] Description 04/21/2025 11:30 AM EST Clinical Support [facility] [address] [place] [address] [phone] Heidi Castañeda RN 05/09/2025 2:15 PM EST Office Visit [facility] [address] [place] [address] Bianca Shearer MD [address] [place] [address] documented as of this encounter Visit Diagnoses Diagnosis Chronic pain of right knee documented in this encounter Additional Health Concerns Assessment Noted Time PHQ-9 Depression Total Score: 1 12/30/19 23 8:54 AM EDT documented as of this encounter Care Teams Vice President Lending Relationship Specialty Start Date End Date Bianca Shearer MD [address] [place] [address] PCP - General Family Medicine 11/26/21 David Clark FNP [address] [place] [address] Nurse Practitioner Family Medicine 01/24/23 documented as of this encounter
--- OUTSIDE RECORDS SUMMARY | 2025-02-28 15:27 | XMS_ITS | Encounter Summary ---
Author Organization [employer] Address 75 [facility] 7t [place] [address] Care Team Providers Care Animal Treatment Investigator Name Role Phone Bianca Shearer MD Primary Care Provider [phone] David Clark Unavailable Unavailable Reason for Visit * Reason Comments Med Refill Encounter Details Date Type Department Care Team (Late st Contact Info) Description 02/01/2024 Refill [facility] [address] [place], [place] [phone] Bianca Shearer MD [address] [place], [place] [phone] Social History Tobacco Use Types Packs/Day Years [...] Description 04/21/2025 11:30 AM EST Clinical Support [address] [address] Heidi Castañeda RN 05/09/2025 2:15 PM EST Office Visit [address] [address] Bianca Shearer MD [address] [place] [address] documented as of this encounter Visit Diagnoses Not on filedocumented in this encounter Additional Health Concerns Assessment Noted Time PHQ-9 Depression Total Score: 5 08/15/19 24 9:39 AM EDT documented as of this encounter Care Teams Animal Treatment Investigator Relationship Specialty Start Date End Date Bianca Shearer MD [address] [place] [address] PCP - General Family Medicine 11/26/21 David Clark FNP [address] [place] [address] Nurse Practitioner Family Medicine 01/24/23 documented as of this encounter
--- OUTSIDE RECORDS SUMMARY | 2025-02-28 15:27 | XMS_ITS | Encounter Summary ---
Author Organization [employer] Address [address] [facility] 7t [place] [address] Care Team Providers Care House Manager Name Role Phone Bianca Shearer MD Primary Care Provider [phone] David Clark Unavailable Unavailable Reason for Visit * Reason Onset Date Comments Med Refill 02/01/2024 Encounter Details Date Type Department Care Team ([facility] st Contact Info) Description 02/01/2024 Telephone [facility] [address] [place], [place] [phone] Bianca Shearer MD [address] [place], [place] [phone] Med Refill Social History Tobacco Use Types [...] [place] LPN - 02/01/2024 9:21 AM EST VISUAL JOURNALIST checked on 02/01/24 medication should still have refills. * Telephone Encounter - Dee Gama - 02/01/2024 9:05 AM EST TC from pt requesting medication refill. Medications needing refill : zolpidem (Ambien) 10 MG tablet To be sent to: [facility]/pharmacy #[id number] documented in this encounter Plan of Treatment Upcoming Encounters Date Type Department Care Team (Late st Contact Info) Description 04/21/2025 11:30 AM EST Clinical Support [facility] [address] [place] [address] [phone] Heidi Castañeda RN 05/09/2025 2:15 PM EST Office Visit [facility] [address] [place] [phone] Bianca Shearer MD [address] [place] [address] documented as of this encounter Visit Diagnoses Not on filedocumented in this encounter Additional Health Concerns Assessment Noted Time PHQ-9 Depression Total Score: 5 08/15/19 24 9:39 AM EDT documented as of this encounter Care Teams House Manager Relationship Specialty Start Date End Date Bianca Shearer MD [address] [place] [address] PCP - General Family Medicine 11/26/21 David Clark FNP 230 [place] [address] Nurse Practitioner Family Medicine 01/24/23 documented as of this encounter
--- OUTSIDE RECORDS SUMMARY | 2025-02-28 15:27 | XMS_ITS | Encounter Summary ---
Author Organization [employer] Address 75 [facility] 7t [place] [address] Care Team Providers Care Packing House Laborer Name Role Phone Bianca Shearer MD Primary Care Provider [phone] David Clark Unavailable Unavailable Encounter Details Date Type Department Care Team (Late st Contact Info) Description 11/11/2022 Orders Only [facility] [address] [place], [place] [phone] Bianca Shearer MD [address] [place], [place] [phone] Social History Tobacco Use Types Packs/Day Years [...] Description 04/21/2025 11:30 AM EST Clinical Support [address] [address] Heidi Castañeda RN 05/09/2025 2:15 PM EST Office Visit [address] [address] Bianca Sheaerr MD [address] [place] [address] documented as of this encounter Procedures Procedure Name Priority Date/Time Associated Diagnosis Comments CANCELLED CHEMISTRY Routine 06/20/2023 1 2:18 PM EDT BI MAMMOGRAM SCREENING TOMOSYNTHESIS BILATERAL Routine 11/18/2022 12:50 PM EDT documented in this encounter Results * Cancelled Chemistry (06/20/2023 12:18 PM EDT) Cancelled Chemistry SEE NOTE [facility] Comment:B12 UNABLE TO BE PER FORMED DUE TO INCORRECT CONTAINER TYPERECEIVED 06/20/2023 12:1 8 PM EDT 06/20/2023 1:42 PM EDT us Maria D Leo ANP HISTORICAL/NON ORDERABLE LABS Fi nal Result [facility] [address] [place] [address] [phone] * BI Mammogram Screening Tomosynthesis Bilateral (11/18/2022 12:50 PM EDT) Anatomical Region Laterality Modality Breast Bilateral Mammography 11/18/2022 12:5 0 PM EDT Narrative 12/05/2022 9:40 PM EDT [facility] [address] [place] [address] Mammography Report Signed Patient: Farnaz Rainey MR#: [id number] 960 : 1970 Acct:[id number] Age/Sex: 52 / F ADM Date: 11/18/22 Loc: HO.MAMMO Attending Dr: Danielle Hightower MD Ordering Physician: Danielle Hightower MD Results: 1Nega tive Date of Service: 11/18/22 Follow Up: 1 Year From Orig inal Mammogram Procedure(s): MM tomosynthesis screening BI Accession Number(s): [id number] cc: Bianca Shearer; Danielle Hightower MD EXAMINATION: [...] in OV> 12/05/22 2136 DD/ 1250 TD/TT: Die Cutting Machine Operator: Procedure Note Donotuseinterpreter, Image - 12/06/2022 [facility] [address] [place] [address] Mammography Report Signed Patient: Lorraine Rainey#: [id number] 960 : 1970Acct:[id number] Age/Sex: 52 / FADM Date: 11/18/22 Loc: PRABHJOT Attending Dr: Danielle Hightower MD Ordering Physician: Danielle Hightower MDResults: 1Nega tive Date of Service: 11/18/22Follow Up: 1 Year From Orig inal Mammogram Procedure(s): MM tomosynthesis screening BI Accession Number(s): [id number] cc: Bianca Shearer; Danielle Hightower MD EXAMINATION: [...] in OV> 12/05/22 2136 DD/ 1250 TD/TT: Die Cutting Machine Operator: us Danielle Hightower MD IMG BI PROCEDURES Edited Resu lt - Final documented in this encounter Visit Diagnoses Not on filedocumented in this encounter Additional Health Concerns Assessment Noted Time PHQ-9 Depression Total Score: 0 09/28/19 23 9:26 AM EDT documented as of this encounter Care Teams Packing House Laborer Relationship Specialty Start Date End Date Bianca Shearer MD [address] [place] [address] PCP - General Family Medicine 11/26/21 David Clark FNP [address] [place] [address] Nurse Practitioner Family Medicine 01/24/23 documented as of this encounter
--- OUTSIDE RECORDS SUMMARY | 2025-02-28 15:27 | XMS_ITS | Encounter Summary ---
Author Organization [employer] Address [address] [facility] [address] [place] [address] Care Team Providers Care Lab Engineer Name Role Phone Bianca Shearer MD Primary Care Provider [phone] David Clark Unavailable Unavailable Reason for Visit * Reason Onset Date Comments Med Refill 02/28/2025 Encounter Details Date Type Department Care Team (Late st Contact Info) Description 02/28/2025 Refill [facility] [address] [place], [place] [phone] Bianca Shearer MD [address] [place], [place] [phone] Chronic pain of both knees Social History Tobacco Use Types Packs/Day Years Used Date Smoking Tobacco: Former Cigarettes Q uit: 10/11/2021 Smokeless Tobacco: Never Alcohol Use Standard Drinks/Week Comments Not Asked 0 (1 standard drink = 0.6 oz pur e alcohol) Depression Answer Date Recorded Patient Health Questionnaire-9 Score 15 01/08/2025 Patient Health Questionnaire-9 Score 15 01/08/2025 Last PHQ-9: Questionnaire Data Not on file 1 Housing Stability Answer Date Recorded What is [...] Answer Date Recorded Patient Health Questionnaire-2 Score 6 01/08/2025 Internet Access Answer Date Recorded Internet Access [...] encounter Miscellaneous Notes * Telephone Encounter - Pardeep Cooper - 02/28/2025 11:16 AM EST TC from pt requesting medication refill. Medications needing refill: traMADol (Ultram) 50 MG tablet To be sent to: [facility]/pharmacy #[id number] - [address] documented in this encounter Plan of Treatment Upcoming Encounters Date Type Department Care Team (Late st Contact Info) Description 04/21/2025 11:30 AM EST Clinical Support [facility] [address] [place] [phone] Heidi Castañeda RN 05/09/2025 2:15 PM EST Office Visit [facility] [address] [place] [phone] Bianca Shearer MD [address] [place] [phone] documented as of this encounter Goals Goal Patient Goal Type Associated Problems Recent Progress Patient-Stated? Author Help patients manage their type 2 diabetes Care Plan Help patients manage their type 2 diabetes Pardeep Alanis Weekly blood pressure task Care Plan Weekly blood pressure task Pardeep Alanis Help patients manage their type 2 diabetes Care Plan Help patients manage their type 2 diabetes No Pardeep Cooper Patient has chronic kidney disease Care Plan Patient has chronic kidney disease No Pardeep Cooper Weekly blood pressure task Care Plan Weekly blood pressure task No Pardeep Cooper Patient has chronic kidney disease Care Plan Patient has chronic kidney disease No Pardeep Cooper Weekly blood pressure task Care Plan Weekly blood pressure task No Nakul Gonzalez [facility] Weekly blood pressure task Care Plan Weekly blood pressure task No Nakul Gonzalez [facility] Patient has chronic kidney disease Care Plan Patient has chronic kidney disease No Nakul Gonzalez [facility] Patient has chronic kidney disease Care Plan Patient has chronic kidney disease No Nakul Gonzalez [facility] Weekly blood pressure task Care Plan Weekly blood pressure task No Nakul Gonzalez [facility] Weekly blood pressure task Care Plan Weekly blood pressure task No Nakul Gonzalez [facility] Patient has chronic kidney disease Care Plan Patient has chronic kidney disease No Nakul Gonzalez [facility] Patient has chronic kidney disease Care Plan Patient has chronic kidney disease No Nakul Gonzalez [facility] Weekly blood pressure task Care Plan Weekly blood pressure task No Heidi Castañeda RN Weekly blood pressure task Care Plan Weekly blood pressure task No Heidi Castañeda RN Patient has chronic kidney disease Care Plan Patient has chronic kidney disease No Heidi Castañeda RN Patient has chronic kidney disease Care Plan Patient has chronic kidney disease No Heidi Castañeda RN Weekly blood pressure task Care Plan Weekly blood pressure task No Karon Leija [place] Weekly blood pressure task Care Plan Weekly blood pressure task No Karon Leija [place] Patient has chronic kidney disease Care Plan Patient has chronic kidney disease No Karon Leija [place] Patient has chronic kidney disease Care Plan Patient has chronic kidney disease No Karon eLija [place] Weekly blood pressure task Care Plan Weekly blood pressure task No Nakul Gonzalez [facility] Weekly blood pressure task Care Plan Weekly blood pressure task No Nakul Gonzalez [facility] Patient has chronic kidney disease Care Plan Patient has chronic kidney disease No Nakul Gonzalez [facility] Patient has chronic kidney disease Care Plan Patient has chronic kidney disease No Nakul Gonzalez, [facility] Weekly blood pressure task Care Plan Weekly blood pressure task No Michael Patel Weekly blood pressure task Care Plan Weekly blood pressure task No Michael Patel Patient has chronic kidney disease Care Plan Patient has chronic kidney disease No Michael Patel Patient has chronic kidney disease Care Plan Patient has chronic kidney disease No Michael Patel Weekly blood pressure task Care Plan Weekly blood pressure task No Nanda Liu MA Weekly blood pressure task Care Plan Weekly blood pressure task No Nanda Liu [place] Patient has chronic kidney disease Care Plan Patient has chronic kidney disease No Nanda Liu [place] Patient has chronic kidney disease Care Plan Patient has chronic kidney disease No Nanda Liu [place] Weekly blood pressure task Care Plan Weekly blood pressure task No Nanda Liu MA Weekly blood pressure task Care Plan Weekly blood pressure task No Nanda Liu [place] Patient has chronic kidney disease Care Plan Patient has chronic kidney disease No Nanda Liu [place] Patient has chronic kidney disease Care Plan Patient has chronic kidney disease No Nanda Liu MA Weekly blood pressure task Care Plan Weekly blood pressure task No Pardeep Cooper Weekly blood pressure task Care Plan Weekly blood pressure task No Pardeep Cooper Patient has chronic kidney disease Care Plan Patient has chronic kidney disease No Pardeep Cooper Patient has chronic kidney disease Care Plan Patient has chronic kidney disease No Pardeep Cooper Weekly blood pressure task Care Plan Weekly blood pressure task No Pardeep Cooper Weekly blood pressure task Care Plan Weekly blood pressure task No Pardeep Cooper Patient has chronic kidney disease Care Plan Patient has chronic kidney disease No Pardeep Cooper Patient has chronic kidney disease Care Plan Patient has chronic kidney disease No Pardeep Cooper documented as of this encounter Visit Diagnoses Diagnosis Chronic pain of both knees documented in this encounter Additional Health Concerns Active Problems Noted Date Diagnosed Date Help patients manage their type 2 diabetes 01/23 Weekly blood pressure task 01/23/2025 Help patients manage their type 2 diabetes 01/23 Patient has chronic kidney disease 01/23/2025 Weekly blood pressure task 01/23/2025 Patient has chronic kidney disease 01/23/2025 Weekly blood pressure task 01/23/2025 Weekly blood pressure task 01/23/2025 Patient has chronic kidney disease 01/23/2025 Patient has chronic kidney disease 01/23/2025 Weekly blood pressure task 01/24/2025 Weekly blood pressure task 01/24/2025 Patient has chronic kidney disease 01/24/2025 Patient has chronic kidney disease 01/24/2025 Weekly blood pressure task 01/31/2025 Weekly blood pressure task 01/31/2025 Patient has chronic kidney disease 01/31/2025 Patient has chronic kidney disease 01/31/2025 Weekly blood pressure task 02/04/2025 Weekly blood pressure task 02/04/2025 Patient has chronic kidney disease 02/04/2025 Patient has chronic kidney disease 02/04/2025 Weekly blood pressure task 02/05/2025 Weekly blood pressure task 02/05/2025 Patient has chronic kidney disease 02/05/2025 Patient has chronic kidney disease 02/05/2025 Weekly blood pressure task 02/10/2025 Weekly blood pressure task 02/10/2025 Patient has chronic kidney disease 02/10/2025 Patient has chronic kidney disease 02/10/2025 Weekly blood pressure task 02/17/2025 Weekly blood pressure task 02/17/2025 Patient has chronic kidney disease 02/17/2025 Patient has chronic kidney disease 02/17/2025 Weekly blood pressure task 02/17/2025 Weekly blood pressure task 02/17/2025 Patient has chronic kidney disease 02/17/2025 Patient has chronic kidney disease 02/17/2025 Weekly blood pressure task 02/28/2025 Weekly blood pressure task 02/28/2025 Patient has chronic kidney disease 02/28/2025 Patient has chronic kidney disease 02/28/2025 Weekly blood pressure task 02/28/2025 Weekly blood pressure task 02/28/2025 Patient has chronic kidney disease 02/28/2025 Patient has chronic kidney disease 02/28/2025 Assessment Noted Time PHQ-9 Depression Total Score: 15 025 9:36 AM EDT documented as of this encounter Care Teams Lab Engineer Relationship Specialty Start Date End Date Bianca Shearer MD [address] [place] [phone] PCP - General Family Medicine 11/26/21 David Clark FNP [address] [place] [phone] Nurse Practitioner Family Medicine 01/24/23 documented as of this encounter
--- OUTSIDE RECORDS SUMMARY | 2025-02-28 15:27 | XMS_ITS | Encounter Summary ---
Author Organization [employer] Address [address] [place] [address] [address] [place] [address] Care Team Providers Care Flare Stitcher Name Role Phone Bianca Shearer MD Primary Care Provider [phone] David Clark Unavailable Unavailable Reason for Visit * Reason Comments Med Refill Encounter Details Date Type Department Care Team ([facility] Contact Info) Description 08/03/[address] [phone] Bianca Shearer MD [address] [place] [address] [phone] Gastroesophageal reflux disease without esophagitis Social History [...] Department Care Team (Late Contact Info) Description 04/21/2025 11:30 AM EST Clinical Support [address] [id number] Heidi Castañeda RN 05/09/2025 2:15 PM EST Office Visit [address] [place] [address] Bianca Shearer MD [address] [place] [phone] documented as of this encounter Visit Diagnoses Diagnosis Gastroesophageal reflux disease without esophagitis Esophageal reflux documented in this encounter Additional Health Concerns Assessment Noted Time PHQ-9 Depression Total Score: 4 07/01/19 23 9:23 AM EDT documented as of this encounter Care Teams Flare Stitcher Relationship Specialty Start Date End Date Bianca Shearer MD [address] [place] [id number] PCP - General Family Medicine 11/26/21 David Clark FNP [address] [place] [phone] Nurse Practitioner Family Medicine 01/24/23 documented as of this encounter
--- OUTSIDE RECORDS SUMMARY | 2025-02-28 15:27 | XMS_ITS | Clinical Summary ---
Author Organization [employer] Address [address] [place] [address] Care Team Providers Care Glove [employer] Cutter Name Role Phone Bianca Shearer MD Primary Care Provider [phone] David Clark Unavailable Unavailable Allergies No known active allergies Medications * This document contains information received from the source organization and may not represent a complete record from that organization. TRUEplus Lancets 33G miscIndications :Type 2 diabetes mellitus without complication, without long-term current use of insulin (HCC) USE TO TEST BLOOD SUGAR TWICE A DAY 100 each 5 024 Active Blood Glucose Monitoring Suppl (FreeStyle Lite) device Inject 1 each under the skin 2 times daily. 1 each 024 Active cholecalciferol (Vitamin D-3) 50 MCG (2000 UT) tablet TAKE 1 TABLET BY MOUTH EVERY DAY 90 tablet 3 024 Active famotidine (Pepcid) 20 MG tablet Take 1 tablet (20 mg) by mouth 2 times daily. 180 tablet 3 025 2025 Active fluticasone (Flonase) 50 MCG/ACT nasal spray Administer 2 sprays into each nostril Once per day. Shake gently. Before first use, prime pump. After use, clean tip and replace cap. 48 g 3 2025 Active metFORMIN (Glucophage) 500 MG tablet Take 2 tablets (1,000 mg) by mouth with breakfast and with evening meal. 360 tablet 3 025 2025 Active glucose blood (FREESTYLE LITE) test stripIndication s:Type 2 diabetes mellitus with hyperglycemia, unspecified whether ferry terminal supervisor insulin use (HCC) Use one strip to test blood sugar twice daily 100 strip 5 Active Alcohol Swabs (CVS Prep) 70 % pads USE DIRECTED TO TEST BLOOD SUGAR 100 each 11 Active naloxone (Narcan) 4 mg/0.1 mL nasal sprayIndication s:Long-term current use of opiate analgesic Administer 1 spray (4 mg) into affected nostril(s) if needed for opioid reversal. 2 each 2 Active Blood Glucose Monitoring Suppl (ConferensumStyle Elizabeth Lite) w/Device kitIndications: Type 2 diabetes mellitus without complication, unspecified whether ferry terminal supervisor insulin use USE DIRECTED TO TEST BLOOD SUGAR TWICE A DAY 1 kit Active cetirizine (ZyrTEC) 10 MG tabletIndicatio ns:Sore throat Take 1 tablet (10 mg) by mouth Once per day. 90 tablet 3 025 2025 Active olmesartan (Benicar) 5 MG tabletIndicatio ns:Elevated blood pressure reading in office without diagnosis of hypertension Take 1 tablet (5 mg) by mouth Once per day. 90 tablet 3 025 2025 Active triamcinolone (Kenalog) 0.1 % cream APPLY THIN COAT TOPICALLY 2 TIMES DAILY FOR UP TO 10 DAYS AT A TIME 90 g 2 Active QUEtiapine (SEROquel) 100 MG tabletIndicatio ns:Other specified anxiety disorders TAKE 1 TABLET BY MOUTH EVERY MORNING 90 tablet 3 Active melatonin 5 MG tabletIndicatio ns:Primary insomnia Take 1 tablet (5 mg) by mouth if needed at bedtime (insomnia). 90 tablet 3 Active atorvastatin (Lipitor) 40 MG tablet Take 1 tablet (40 mg) by mouth Once per day. 90 tablet 3 025 2025 Active aspirin 81 MG EC tablet Take 1 tablet (81 mg) by mouth Once per day. 90 tablet 3 Active Dulaglutide (Trulicity) 1.5 MG/0.5ML solution auto-injector Inject 1.5 mg as directed 1 (one) time per week. INJECT ONE PEN (=1.5 MG) SUBCUTANEOUSLY ONCE A WEEK 2 mL 3 Active hydrOXYzine HCl (Atarax) 50 MG tabletIndicatio ns:Pruritus TAKE 1 TABLET BY MOUTH EVERY 8 HOURS NEEDED FOR ITCHING OR SLEEP 60 tablet 11 Active zolpidem (Ambien) 10 MG tabletIndicatio ns:Other specified anxiety disorders Take 1 tablet (10 mg) by mouth if needed at bedtime for sleep. 30 tablet Active traMADol (Ultram) 50 MG tabletIndicatio ns:Chronic pain of both knees Take 2 tablets (100 mg) by mouth every 12 (twelve) hours if needed for severe pain. Do not start before March 01, 2025. 112 tablet 025 2025 Active permethrin (Elimite) 5 % creamIndication s:Scabies exposure APPLY TO SKIN FROM HAIRLINE TO TOES AND WASH OFF 8-10 HOURS LATER. 60 g 025 2024 Discontinued(T herapy completed) zolpidem (Ambien) 10 MG tabletIndicatio ns:Other specified anxiety disorders TAKE 1 TABLET BY MOUTH EVERY DAY AT BEDTIME NEEDED FOR SLEEP 30 tablet 025 2024 Discontinued traMADol (Ultram) 50 MG tabletIndicatio ns:Chronic pain of both knees Take 2 tablets (100 mg) by mouth every 12 (twelve) hours if needed for severe pain for up to 28 days. 112 tablet 025 2024 Discontinued traMADol (Ultram) 50 MG tabletIndicatio ns:Chronic pain of both knees TAKE 2 TABLETS BY MOUTH EVERY 12 (TWELVE) HOURS IF NEEDED FOR SEVERE PAIN FOR UP TO 28 DAYS. 112 tablet 025 2024 Discontinued(R eorder (will not trigger notification to Pharmacy)) zolpidem (Ambien) 10 MG tabletIndicatio ns:Other specified anxiety disorders TAKE 1 TABLET BY MOUTH AT BEDTIME NEEDED FOR SLEEP 30 tablet 025 2024 Discontinued(R eorder (will not trigger notification to Pharmacy)) Active Problems Problem Noted Date Diagnosed Date Essential hypertension 02/19/2025 PTSD (post-traumatic stress disorder) 02/05/2025 Moderate recurrent major depression (CMS/HCC) Type 2 diabetes mellitus with hyperglycemia 0 03/2024 Assessment & Plan (04/13/2024 11:10 AM [...] knee pain Rx: Tramadol 100mg BID Last [employer] SAL[employer]OR agreement: Tier II (visit every 3 months) [...] Plan (04/13/2024 11:10 AM EST): Tramadol prnon RETAIL SALES DIRECTOR agreement for this Will increase to Tramadol 100mg BID from 50mg TID Assessment & Plan (04/25/2023 9:32 PM EST): Tramadol prn Subacute cough 04/22/2022 Mood disorder 02/12/2022 DREW (generalized anxiety disorder) 12/15/2014 Assessment & Plan (08/15/2023 10:55 AM [...] (10/24/2022 9:11 AM EDT): Letter written for [facility] Assessment & Plan (09/27/2022 10:00 AM EDT): With intermittent psychotic delusions (insect infestation), did not mention today. Cont current medications. F/U with me in 3 months. I have reassured her that this provider has no plans to leave [facility] for at least another year, and we [...] Problem Noted Date Diagnosed Date Resolved Date Elevated blood pressure read ing in office without diagnosis of hypertension 04/25/20232024 Assessment & Plan (04/25/2023 9:34 PM EST): Recheck 136/88 Review of past two years of clinic data shows <140/90 at almost all visits Will continue to monitor, start ACEi/ARB if needed Bacterial vaginosis 04/22/2022 02/11/20 25 Vaginal discharge 04/22/2022 02/10/2025 Pruritus 02/12/2022 02/19/2025 Type 2 diabetes mellitus without complication 12/15/19 [...] AM EDT): Due for labs, ordered Encounters * This document contains information received from the source organization and may not represent a complete record from that organization. Date Type Department Care Team Description 02/28/2025 Refill [facility] [address] [place] [address] Bianca Shearer MD Chronic pain of both knees 02/28/2025 Refill [facility] [address] [place] [address] Bianca Shearer MD Other specified anxiety disorders 02/18/2025 11:15 AM EST Telemedicine [facility] [address] [place] [address] Bianca Shearer MD PTSD (post-traumatic stress disorder) (Primary Dx); Moderate recurrent major depression (CMS/HCC) (HCC); DREW (generalized anxiety disorder); Type 2 diabetes mellitus with hyperglycemia, without long-term current use of insulin (HCC); Essential hypertension 02/18/2025 Travel 02/17/2025 Telephone [facility] [address] [place] [address] Bianca Shearer MD chart prep 02/10/2025 Telephone [facility] [address] [place] [address] Bianca Shearer MD Call Back Request 02/04/2025 Telephone [facility] [address] [place] [phone] Bianca Shearer MD 01/31/2025 Refill [facility] [address] [place] [phone] Bianca Shearer MD Chronic pain of both knees; Other specified anxiety disorders 01/26/2025 Refill [facility] [address] [place] [address] Bianca Shearer MD 01/24/2025 Telephone [facility] [address] [place] [phone] Nakul Saab [facility] Care Coordination 01/23/2025 Telephone [facility] [address] [place] [address] Bianca Shearer MD 01/14/2025 Telephone [facility] [address] [place] [phone] Nakul Saab [facility] Referral 12/30/2024 Travel 12/27/2024 Refill [facility] [address] [place] [address] Bianca Shearer MD [facility] 12/27/2024 Refill [facility] [address] [place] [address] Bianca Shearer MD Type 2 diabetes mellitus without complications ([facility]); Non-recurrent acute suppurative otitis media of right ear without spontaneous rupture of tympanic membrane; Scabies exposure 12/27/2024 Telephone [facility] [address] [place] [phone] Bianca Shearer MD call baack request 12/27/2024 Refill [facility] [address] [place] [phone] Bianca Shearer MD Chronic pain of both knees 12/27/2024 Refill [facility] [address] [place] [phone] Bianca Shearer MD Other specified anxiety disorders 12/16/2024 11:30 AM EDT Clinical Support [address] [address] Heidi Castañeda, RN Long-term current use of opiate analgesic (Primary Dx) 12/16/[address] [address] Heidi Castañeda RN BPI Scoring 12/16/2024 Travel 12/06/[address] [address] Bianca Shearer MD 12/04/2024 3:15 PM EDT Office Visit [address] [address] Bianca Shearer MD Type 2 diabetes mellitus with hyperglycemia, without long-term current use of insulin ([facility]) (Primary Dx); Encounter for screening mammogram for malignant neoplasm of breast; Other specified anxiety disorders; Primary insomnia; Encounter for immunization; Gastroesophageal reflux disease without esophagitis 12/04/2024 Travel 12/03/2024 Telephone [facility] [address] [place] [phone] Bianca Shearer MD chart prep 11/30/2024 Refill [facility] [address] [place] [phone] Bianca Shearer MD Scabies exposure 11/29/2024 Refill [facility] [address] [place] [phone] Bianca Shearer MD Other specified anxiety disorders 11/29/2024 Telephone [facility] [address] [facility], [place] [phone] Bianca Shearer MD 11/29/2024 Refill [facility] [address] [place] [address] Bianca Shearer MD Chronic pain of both knees from Last 3 Months Immunizations Immunization Administration Dates Next Due Hep A, Adult 12/21/2010,04/29/2010 Hep B, adult 12/19/2008, 8,12/19/2006,10/24 Influenza injectable quadriv alent IIV4 with preservative 01/06/2016,12/15/2014 Influenza injectable quadriv alent preservative free 04/21/2023,11/30/2020,01/31/2019,05/17,06/16/2014 Influenza, Split (incl. kandi fied surface antigen) 02/27/2012 Influenza, seasonal, injecta ble, preservative free 12/04/2024 Moderna Covid-19 Vaccine 12+ 06/23/2020,05/27/19 21 Moderna [...] Sign Reading Time Taken Comments Blood Pressure 124/85 12/04/2024 4:00 PM EDT Pulse 89 12/04/2024 2:52 PM [...] 04/21/2025 11:30 AM EST Clinical Support [facility] [address] [place] [address] Heidi Castañeda RN 05/09/2025 2:15 PM EST Office Visit [facility] [address] [facility] [address] Bianca Shearer MD [address] [facility] [place] [address] Health Maintenance Due Date Last Done Comments CT Colonography 1971 FIT DNA/Cologuard 1971 FIT 1971 FOBT 1971 Sigmoidoscopy 1971 Disability Screening 1971 Eye Exam 08/29/1981 Alcohol/Substance Use Screening 1983 Pneumococcal Vaccine: 50+ Years (2 of 2 - PCV) 07/08/2014 07/08/2013 Zoster Vaccines (1 of 2) 08/29/2021 DTaP/Tdap/Td Vaccines (2 - Td or Tdap) 06/08/2022 06/08/2012, 10/11/2004 Diabetes: Foot Exam 06/19/2024 06/20/2023, 06/20/2023, 06/20/2023, Additional history exists COVID-19 Vaccine ( season) 2024 01/15/2022, 03/09/2021, 06/23/2020, Additional history exists Mammogram 11/23/2024 11/24/2023, 10/2022, 11/12/2021, Additional history exists Diabetes: Hemoglobin A1C 01/01/2025 025, 04/11/2024, 04/03/2024, Additional history exists SDOH Screening 04/02/2025 04/02/2024 Depression Monitoring 07/09/2025 01/08/2025, 025 Diabetes: Urine Protein Screening 12/04/2025 12/04/2024, 08/27/2021, 08/27/2021, Additional history exists Lipid Panel 12/04/2025 12/04/2024, 10/12, 08/27/2021, Additional history exists Cervical Cancer Screening 01/08/2026 HPV/Cotest 01/08/2026 01/08/2021 Pap Smear 01/08/2026 01/08/2021 Tobacco Screening 02/18/2026 02/18/2025 Colonoscopy 10/12/2026 10/12/2021, 10/12/2021 Colorectal Cancer Screening 10/12/2026 RSV Patients [...] on patient's age to complete this topic Goals Goal Patient Goal Type Associated Problems Recent Progress Patient-Stated? Author Help patients manage their type 2 diabetes Care Plan Help patients manage their type 2 diabetes No Pardeep Cooper Weekly blood pressure task Care Plan Weekly blood pressure task No Pardeep Cooper Help patients manage their type 2 diabetes [...] Weekly blood pressure task No Nakul Gonzalez LMHC Weekly blood pressure task Care Plan Weekly blood pressure task No Nakul Gonzalez LMHC Patient has chronic kidney disease Care Plan Patient has chronic kidney disease No Nakul Gonzalez LMHC Patient has chronic kidney disease Care Plan Patient has chronic kidney disease No Nakul Gonzlaez [facility] Weekly blood pressure task Care Plan Weekly blood pressure task No Nakul Gonzalez [facility] Weekly blood pressure task Care Plan Weekly blood pressure task No Nakul Gonzalez [facility] Patient has chronic kidney disease Care Plan Patient has chronic kidney disease No Nakul Gonzalez [facility] Patient has chronic kidney disease Care Plan Patient has chronic kidney disease No Nakul Gonzalez [facility] Weekly blood pressure task Care Plan Weekly [...] chronic kidney disease No Karon Leija [place] Weekly blood pressure task Care Plan Weekly blood pressure task No Nakul Gonzalez [facility] Weekly blood pressure task Care Plan Weekly blood pressure task No Nakul Gonzalez [facility] Patient has chronic kidney disease Care Plan Patient has chronic kidney disease No Nakul Gonzalez [facility] Patient has chronic kidney disease Care Plan Patient has chronic kidney disease No Nakul Gonzalez [facility] Weekly blood pressure task Care Plan Weekly [...] Care Plan Weekly blood pressure task No Nanad Liu MA Weekly blood pressure task Care [...] has chronic kidney disease No Pardeep Cooper Procedures Procedure Name Priority Date/Time Associated Diagnosis Comments POCT SHAWNA-14 URINE DRUG SCREEN Routine 12/16/2024 11:36 AM EDT Long-term current use of opiate analgesic POCT GLUCOSE Routine 12/04/2024 3:19 PM EDT Type 2 diabetes mellitus with hyperglycemia, without long-term current use of insulin ([facility]) COMPREHENSIVE METABOLIC PANEL Routine 12/04/2024 2:37 PM EDT Type 2 diabetes mellitus with hyperglycemia, unspecified whether nursing home insulin use ([facility]) ALBUMIN, RANDOM URINE W/CREATININE Routine 12/04/2024 2:37 PM EDT Type 2 diabetes mellitus with hyperglycemia, unspecified whether ferry terminal supervisor insulin use ([facility]) LIPID PANEL, STANDARD Routine 12/04/2024 2:37 PM EDT Type 2 diabetes mellitus with hyperglycemia, unspecified whether ferry terminal supervisor insulin use ([facility]) URINALYSIS, COMPLETE (INCLUDES MACRO AND MICRO) Routine 12/04/2024 2:37 PM EDT Abnormal urinalysis CULTURE, URINE, ROUTINE Routine 12/04/2024 2:37 PM EDT Burning with urination POCT GLYCATED HEMOGLOBIN, TOTAL Routine 10/01/2024 7:20 PM EDT Type 2 diabetes mellitus with hyperglycemia, unspecified whether ferry terminal supervisor insulin use ([facility]) BI MAMMOGRAM SCREENING TOMOSYNTHESIS BILATERAL Routine 11/24/2023 [...] Relevant to Health Maintenance Results * (ABNORMAL) POCT SHAWNA-14 Urine Drug Screen (12/16/2024 11:36 AM EDT) THC Positive(A) Negative Comment:Goldy, purchased f rom dispensary Cocaine Screen, Urine Negative Negative Opiate Screen, Urine Negative Negative Methamphetamine Screen Urine Negative Negative Amphetamine Screen, Urine Negative Negative Benzodiazepines Screen, Urine Negative Negative Barbiturate Screen, Urine Negative Negative Methadone Screen, Urine Negative Negative Buprenophine Screen, Urine Negative Negative TCA, Urine Negative Negative MDMA Urine Negative Negative ng/mL Oxycodone Screen, Urine Negative Negative Phencyclidine (PCP), Urine Negative Negative Propoxyphene, Urine Negative Negative Fentanyl, Urine Negative Negative Urine Urine specimen obtained by clean catch procedure / Unknown 12/16/2024 11:36 AM EDT Narrative Heidi Castañeda RN - 12/16/2024 11:36 AM EDT UTOX cup Lot#[id number] Exp. 12/17/25 Internal Pass Control Bianca Shearer MD POINT OF CARE TEST ENTER/EDIT ORDERABLES Final Result * POCT Glucose (12/04/2024 3:19 PM EDT) Glucose Blood, POC 141 60 - 200 mg/dL QC Media Lot # [id number] Lot# Expiration Date Blood Capillary blood specimen / Unknown 12/04/2024 3:19 PM EDT Bianca Shearer MD POINT OF CARE TEST ENTER/EDIT ORDERABLES Final Result * Albumin, Random Urine W/Creatinine (12/04/2024 2:37 PM EDT) Creatinine, Urine 180.08 mg/dL [facility] Microalbumin Urine 7.0 mg/L [facility] Microalbum Creatinine Ratio Ur 3.8 <30 ug/mg cr [facility] Comment:Albumin/Creatinine R atio Reference Ranges: Normal: < 30 ug/mg creatinine Microalbuminuria: 30 - 300 ug/mg creatinineClinical Albuminuria: > 300 ug/mg creatinine Urine (Urine, Random) 12/04/2024 2:37 PM EDT 12/04/2024 3:57 PM EDT Bianca Shearer MD LAB URINE ORDERABLES Final Res ult [facility] [address] [place] [phone] * (ABNORMAL) Urinalysis Complete (12/04/2024 2:37 PM EDT) Color Urine Yellow [facility] Appearance Urine Clear [facility] PH 5.5 5.0 - 9.0 [facility] Glucose Urine UA Negative Negative mg/dL [facility] Urine Blood Negative Negative [facility] Specific Bussey - Urine 1.020 1.005 - 1.025 [facility] Urine Protein Negative Neg-Trace mg/dL [facility] Urine Ketones Negative Negative mg/dL [facility] Nitrite Urine Negative Negative [facility] Leukocyte Esterase Urine Small (1+)(A) Negative [facility] RBC Urine 0-2 0 - 2 /HPF [facility] Urine WBC 0-5 0 - 5 /HPF [facility] Urine Squamous Epithelial Cell 3-5 0 - 2 /HPF [facility] Urine Bacteria None Seen None Seen [facility] Hyaline Casts, Urine 0-2 0 - 2 /LPF [facility] Urine Urine specimen obtained by clean catch procedure / Unknown 12/04/2024 2:37 PM EDT 12/04/2024 3:57 PM EDT [facility] LAB URINE ORDERABLES Final Resu lt Performing Organization Address [facility] Co de Phone Number [facility] [address] [place] [phone] * Culture, Urine, Routine (12/04/2024 2:37 PM EDT) Urine Urine specimen obtained by clean catch procedure / Unknown 12/04/2024 2:37 PM EDT 12/04/2024 3:57 PM EDT Comment:UACC Narrative [facility] - 12/06/2024 9:00 AM EDT Urine Culture No growth. Specimen Source: Urine clean catch [facility] [id number] [facility] [employer] MICROBIOLOGY - GENERAL ORDE RABLES Final Result Performing Organization Address [facility] Co de Phone Number [facility] [address] [place] [phone] * (ABNORMAL) Lipid Panel, Standard (12/04/2024 2:37 PM EDT) Triglycerides 119 <150 mg/dL [facility] Comment:Desirable Triglyceri de: less than 150 mg/dLBorderline High Triglyceride 150-199 mg/dLHigh Triglyceride: 200-499 mg/dLVery High Triglyceride: greater than or equal to 5OO mg/dL Cholesterol 222(H) <200 mg/dL [facility] Comment:Desirable Cholestero l: less than 200 mg/dLBorderline High Cholesterol: 200-239 mg/dLHigh Cholesterol: greater than 239 mg/dL LDL Cholesterol Calculated 155(H) <100 mg/dL [facility] Comment:Desirable LDL: less than 100 mg/dLNear Optimal/Above Optimal LDL: 110- 129 mg/dLBorderline High LDL: 130-159 mg/dLHigh LDL: 160-189 mg/dLVery High LDL: greater than or equal to 190 mg/dL HDL Cholesterol 44 >40 mg/dL [facility] Comment:Desirable HDL: great er than 40 mg/dL Note: This HDL assay may give artificially low results in patients with liver disease. Blood Venous blood specimen / Unknown 12/04/2024 2:37 PM EDT 12/04/2024 4:13 PM EDT us Bianca Shearer MD LAB BLOOD ORDERABLES Final Res ult [facility] [address] [place] [phone] * (ABNORMAL) Comprehensive Metabolic Panel (12/04/2024 2:37 PM EDT) Sodium 140 135 - 145 mmol/L [facility] Potassium 4.0 3.3 - 5.1 mmol/L [facility] Chloride 105 96 - 108 mmol/L [facility] Carbon Dioxide 29 22 - 29 mmol/L [facility] Anion Gap 10(L) 12 - 20 [facility] Urea Nitrogen (BUN) 6(L) 9 - 16 mg/dL [facility] Creatinine, Serum 0.65 0.5 - 1.4 mg/dL [facility] Estimated Glomerular Filt Rate >60 [facility] Comment:Chronic Kidney Disea se: Estimated GFR < 60 mL/min/[id number] Kidney Disease: Estimated GFR < 15 mL/min/1.73m2 Glucose 158(H) 60 - 115 mg/dL [facility] Calcium 9.6 8.4 - 10.2 mg/dL [facility] Bilirubin, Total 0.5 0.0 - 1.0 mg/dL [facility] Aspartate Amino Transferase 30 5 - 31 U/L [facility] Alanine Aminotransferase 45(H) 0 - 31 U/L [facility] Total Protein 7.4 6.5 - 8.0 g/dL [facility] Albumin Level 4.5 3.5 - 5.0 g/dL [facility] Alkaline Phosphatase 75 39 - 117 U/L [facility] Blood Venous blood specimen / Unknown 12/04/2024 2:37 PM EDT 12/04/2024 4:13 PM EDT Bianca Shearer MD LAB BLOOD ORDERABLES Final Res ult [facility] [address] [place] [phone] * (ABNORMAL) POCT HGB A1C (10/01/2024 7:20 PM EDT) Hemoglobin A1C 7.6(A) 4.0 - 5.7 % QC Media Lot # [id number] Lot# Expiration Date ,720,371 Blood 10/01/2024 7:20 PM EDT Bianca Shearer MD POINT OF CARE TEST ENTER/EDIT ORDERABLES Final Result * BI Mammogram Screening Tomosynthesis Bilateral (11/24/2023 12:20 PM EDT) Anatomical Region Laterality Modality Breast Bilateral Mammography 11/24/2023 12:2 0 PM EDT Narrative 12/07/2023 8:20 PM EDT [facility] [address] [place] [address] Mammography Report Signed Patient: Farnaz Rainey MR#: [id number] : 1970 Acct:[id number] Age/Sex: 53 / F ADM Date: 11/24/23 Loc: HO.MAMMO Attending Dr: Bianca Shearer MD Ordering Physician: Bianca Shearer Results: 1Negative Date of Service: 11/24/23 Follow Up: 1 Year From Orig inal Mammogram Procedure(s): MM tomosynthesis screening BI Accession Number(s): [id number] cc: Bianca Shearer EXAMINATION: MM SCREENING DIGITAL [...] signed by Yadi Vogel DO in OV> 12/07/23 2017 DD/ 1220 TD/TT: 11/24/23 1237 Sample Coordinator: Procedure Note Donotuseinterpreter, Image - 12/07/2023 [facility] [address] [place] [address] Mammography Report Signed Patient: Stephen RaineyR#: [id number] : 1970Acct:[id number] Age/Sex: 53 / FADM Date: 11/24/23 Loc: HO.MAMMO Attending Dr: Bianca Shearer MD Ordering Physician: Wade Shearerults: 1Negative Date of Service: 11/24/23Follow Up: 1 Year From Orig ina Mammogram Procedure(s): MM tomosynthesis screening BI Accession Number(s): [id number] cc: Bianca Shearer EXAMINATION: MM SCREENING DIGITAL [...] DO Signed By: <Electronically signed by Yadi Voegl DO in OV> 12/07/232016 DD/ 1220 TD/TT: 11/24/23 1237 Sample Coordinator: Bianca Shearer MD IMG BI PROCEDURES Edited Resul t - Final * Hm Colonoscopy (10/12/2021) Colonoscopy Normal Normal Narrative Janet Rodriguez - 10/12/2021 Recommended 5 years . See legacy note 10/12/2021 Historical Provider HEALTH MAINTENANCE Final Result * HEPATITIS C AB W/REFL TO HCV RNA, QN, PCR (07/13/2021 11:10 AM EDT) HEPATITIS C ANTIBODY NON-REACT YUE NON-REACT [facility]UE [facility] INDEX 0.01 <1.00 [facility] Comment: HCV antibody was non-reactive. There is no laboratory evidence of HCV infection. In most cases, no further action is required. However, if recent HCV exposure is suspected, a test for HCV RNA (test code 38628) is suggested. For additional information please refer to http://[employer].CREATIV/faq/YII40m0 (This link is being provided for informational/ educational purposes only.) 07/13/2021 11:1 0 AM EDT us Zamzam Prado NP HISTORICAL/NON ORDERABLE LABS F inal Result Performing Organization Address [facility] de Phone Number [facility] [address] [place] [address], * HIV 1/2 ANTIGEN/ANTIBODY,FOURTH GENERATION W/RFL (07/13/2021 11:10 AM EDT) HIV-1/2 ANTIGEN AND ANTIBODIES, 4TH GENERATION W/ REFLEX NON-REACT YUE NON-REACT YUE [facility] Comment: HIV-1 antigen and HIV-1/HIV-2 [...] purpose. For additional information please refer to http://education.[employer].Averail/faq/DBP415 (This link is being provided for informational/ educational purposes only.) The performance of this assay has not been clinically validated in patients less than 2 years old. 07/13/2021 11:1 0 AM EDT us Zamzam Prado NP LAB BLOOD ORDERABLES Final Resu lt Performing Organization Address [facility]/ZIP Co de Phone Number [facility] [address] [place] [address], * THINPREP TIS PAP AND HPV mRNA E6/E7 REFLEX HPV 16,18/45 (01/08/2021 1:59 PM EDT) Clinical Information: None given [facility] COMMENT SEE COMMENT [facility] [...] along with historic and current clinical information. Comment: This Pap test has been evaluated with computer assisted technology. [facility] Business Instructor: SEE COMMENT [facility] Comment: OTF COX(ASCP) CT screening location: [place] [address] HPV nRNA E6/E7 Not Detected Not Detected [facility] [employer] Comment: Methodology: Agricultural Labor Camp Manager-Mediated Amplification This assay detects E6/E7 viral messenger RNA (mRNA) from 14 high-risk HPV types (16,18,31,33,35,39,45,51,52,56,58,59,66,68). The analytical performance characteristics of this assay have been determined by [employer]. The modifications have not been cleared or approved by the FDA. This assay has been validated pursuant to the CLIA regulations and is used for clinical purposes. For additional information, please refer to http://education.[employer].Averail/faq/POW703j3 (This link if provided for information/ educational purposes only.) Interpretation/Re sult: Negative for intraepithelial lesion or malignancy. [facility] LMP: 20,211,025 [facility] Prev. BX: NONE GIVEN [facility] Prev. PAP: NONE GIVEN [facility] SOURCE: Cervix [facility] Statement Of Adequacy: SEE COMMENT [facility] Comment: Satisfactory for evaluation. Endocervical/transformation zone component present. 01/08/2021 1:59 PM EDT Danielle Hightower MD LAB PATHOLOGY ORDERABLES Megan reed Result [employer] [address] [place] [address], from Last 3 Months or Most Recently Relevant to Health Maintenance Additional Health Concerns Active Problems Noted Date [...] 02/28/2025 Patient has chronic kidney disease 02/28/2025 Insurance [facility] C3 Care Teams Glove Parts Cutter Relationship Specialty Start Date End Date Bianca Shearer MD [address] [place] [address] PCP - General Family Medicine 11/26/21 David Clark FNP [address] [place] [address] Nurse Practitioner Family Medicine 01/24/23
--- OUTSIDE RECORDS SUMMARY | 2025-02-28 15:27 | XMS_ITS | Encounter Summary ---
Author Organization [employer] Address [address] [facility] 7t [place] [address] Care Team Providers Care Reading Aide Name Role Phone Bianca Shearer MD Primary Care Provider [phone] David Clark Unavailable Unavailable Reason for Visit * Reason Comments Med Refill Encounter Details Date Type Department Care Team (Late st Contact Info) Description 12/27/2024 Refill [facility] MEDICINE [address] [place], [place] [phone] Bianca Shearer MD [address] [place], [place] [phone] Type 2 diabetes mellitus without complications (HCC); Non-recurrent acute suppurative otitis media of right ear without spontaneous rupture of tympanic membrane; Scabies exposure Social History Tobacco Use Types [...] Description 04/21/2025 11:30 AM EST Clinical Support [address] [address] Heidi Castañeda RN 05/09/2025 2:15 PM EST Office Visit [facility] [address] [place] [address] Bianca Shearer MD [address] [place] [address] documented as of this encounter Visit Diagnoses Diagnosis Type 2 diabetes mellitus without complications (HCC) Non-recurrent acute suppurative otitis media of right ear without spontaneous rupture of tympanic membrane Scabies exposure documented in this encounter Additional Health Concerns Assessment Noted Time PHQ-9 Depression Total Score: 5 10/08/19 25 9:43 AM EDT documented as of this encounter Care Teams Reading Aide Relationship Specialty Start Date End Date Bianca Shearer MD [address] [place] [phone] PCP - General Family Medicine 11/26/21 David Clark FNP [address] [place] [address] Nurse Practitioner Family Medicine 01/24/23 documented as of this encounter
--- OUTSIDE RECORDS SUMMARY | 2025-02-28 15:27 | XMS_ITS | Encounter Summary ---
Author Organization [employer] Address 75 [facility] 7t [place] [address] Care Team Providers Care Slubber Tender Name Role Phone Bianca Shearer MD Primary Care Provider [phone] David Clark Unavailable Unavailable Reason for Visit * Reason Comments Med Refill Encounter Details Date Type Department Care Team (Late st Contact Info) Description 05/30/2024 Refill [facility] MEDICINE [address] [place], [place] [phone] Bianca Shearer MD 230 [place], [place] [phone] Other specified anxiety disorders Social History Tobacco [...] Description 04/21/2025 11:30 AM EST Clinical Support [address] [address] Heidi Castañeda RN 05/09/2025 2:15 PM EST Office Visit [address] [address] Bianca Shearer MD [address] [place] [address] documented as of this encounter Visit Diagnoses Diagnosis Other specified anxiety disorders documented in this encounter Additional Health Concerns Assessment Noted Time PHQ-9 Depression Total Score: 5 08/15/19 24 9:39 AM EDT documented as of this encounter Care Teams Slubber Tender Relationship Specialty Start Date End Date Bianca Shearer MD [address] [place] [address] PCP - General Family Medicine 11/26/21 David Clark FNP [address] [place] [address] Nurse Practitioner Family Medicine 01/24/23 documented as of this encounter
--- OUTSIDE RECORDS SUMMARY | 2025-02-28 15:27 | XMS_ITS | Encounter Summary ---
Author Organization [employer] Address 75 [facility] 7t [place] [address] Care Team Providers Care Inspector And Clerk Name Role Phone Bianca Shearer MD Primary Care Provider [phone] David Clark Unavailable Unavailable Reason for Visit * Reason Comments Med Refill Encounter Details Date Type Department Care Team (Late st Contact Info) Description 02/01/2024 Refill [facility] MEDICINE [address] [place], [place] [phone] Bianca Shearer MD [address] [place], [place] [phone] Chronic pain of right knee Social History [...] Description 04/21/2025 11:30 AM EST Clinical Support [address] [address] Heidi Castañeda RN 05/09/2025 2:15 PM EST Office Visit [address] [address] Bianca Shearer MD [address] [place] [address] documented as of this encounter Visit Diagnoses Diagnosis Chronic pain of right knee documented in this encounter Additional Health Concerns Assessment Noted Time PHQ-9 Depression Total Score: 5 08/15/19 24 9:39 AM EDT documented as of this encounter Care Teams Inspector And Clerk Relationship Specialty Start Date End Date Bianca Shearer MD [address] [place] [address] PCP - General Family Medicine 11/26/21 David Clark FNP [address] [place] [address] Nurse Practitioner Family Medicine 01/24/23 documented as of this encounter
--- OUTSIDE RECORDS SUMMARY | 2025-02-28 15:27 | XMS_ITS | Encounter Summary ---
Author Organization [employer] Address [address] [place] [address] 7t [place] [address] Care Team Providers Care Bench Patternmaker Metal Name Role Phone Bianca Shearer MD Primary Care Provider [phone] David Clark Unavailable Unavailable Reason for Visit * Reason Comments Med Refill Encounter Details Date Type Department Care Team (Late st Contact Info) Description 12/30/[address] [facility] MEDICINE [address] [place] [phone] Emily Sheikh DO [address] [place], [place] [phone] Social History Tobacco Use Types Packs/Day Years [...] Description 04/21/2025 11:30 AM EST Clinical Support [facility] [address] [place] [address] Heidi Castañeda RN 05/09/2025 2:15 PM EST Office Visit [facility] [address] [place] [address] Bianca Shearer MD [address] [place] [address] documented as of this encounter Visit Diagnoses Not on filedocumented in this encounter Additional Health Concerns Assessment Noted Time PHQ-9 Depression Total Score: 1 12/30/19 23 8:54 AM EDT documented as of this encounter Care Teams Bench Patternmaker Metal Relationship Specialty Start Date End Date Bianca Shearer MD [address] [place] [address] PCP - General Family Medicine 11/26/21 David Clark FNP [address] [place] [address] Nurse Practitioner Family Medicine 01/24/23 documented as of this encounter
--- OUTSIDE RECORDS SUMMARY | 2025-02-28 15:27 | XMS_ITS | Encounter Summary ---
Author Organization [employer] Address 75 [facility] 7t [place] [address] Care Team Providers Care See Supervisor Name Role Phone Bianca Shearer MD Primary Care Provider [phone] David Clark Unavailable Unavailable Reason for Visit * Reason Comments Med Refill Encounter Details Date Type Department Care Team (Late st Contact Info) Description 07/29/2024 Refill [facility] MEDICINE [address] [place], [place] [phone] Bianca Shearer MD 230 [place], [place] [phone] Other specified anxiety disorders; Chronic pain of [...] Description 04/21/2025 11:30 AM EST Clinical Support [address] [address] Heidi Castañeda RN 05/09/2025 2:15 PM EST Office Visit [address] [address] Bianca Shearer MD [address] [place] [address] documented as of this encounter Visit Diagnoses Diagnosis Other specified anxiety disorders Chronic pain of right knee documented in this encounter Additional Health Concerns Assessment Noted Time PHQ-9 Depression Total Score: 5 08/15/19 24 9:39 AM EDT documented as of this encounter Care Teams See Supervisor Relationship Specialty Start Date End Date Bianca Shearer MD [address] [place] [address] PCP - General Family Medicine 11/26/21 David Clark FNP [address] [place] [address] Nurse Practitioner Family Medicine 01/24/23 documented as of this encounter
--- OUTSIDE RECORDS SUMMARY | 2025-02-28 15:27 | XMS_ITS | Encounter Summary ---
Author Organization [employer] Address 75 [facility] 7t [place] [address] Care Team Providers Care Land Surveying Manager Name Role Phone Bianca Shearer MD Primary Care Provider [phone] David Clark Unavailable Unavailable Reason for Visit * Reason Onset Date Comments Med Refill 02/28/2025 Encounter Details Date Type Department Care Team ([facility] st Contact Info) Description 02/28/2025 Refill [facility] MEDICINE [address] [place], [place] [phone] Bianca Shearer MD [address] [place], [place] [phone] Other specified anxiety disorders Social History Tobacco [...] encounter Miscellaneous Notes * Telephone Encounter - Radhika Rainey LPN - 02/28/2025 11:19 AM EST Garment Worker checked on 02.28.25.Last seen 12.04.24 *permethrin (Elimite) 5 % cream * is not pended,please review * Telephone Encounter - Pardeep Cooper - 02/28/2025 11:13 AM EST TC from pt requesting medication refill. Medications needing refill: zolpidem (Ambien) 10 MG tablet permethrin (Elimite) 5 % cream To be sent to: [facility]/pharmacy #[id number] - [address] documented in this encounter Plan of Treatment Upcoming Encounters Date Type Department Care Team (Late st Contact Info) Description 04/21/2025 11:30 AM EST Clinical Support [address] [address] Heidi Castañeda RN 05/09/2025 2:15 PM EST Office Visit [facility] MEDICINE [address] [place] [address] Bianca Shearer MD [address] [place] [address] documented as of this encounter Goals Goal [...] Weekly blood pressure task No Nakul Gonzalez [facility] Weekly blood pressure task Care Plan Weekly blood pressure task No Nakul Gonzalez [facility] Patient has chronic kidney disease Care Plan Patient has chronic kidney disease No Nakul Gonzalez [facility] Patient has chronic kidney disease Care Plan Patient has chronic kidney disease No Nakul Gonzalez [facility] Weekly blood pressure task Care Plan Weekly blood pressure task No Nakul Gonzalez [facility] Weekly blood pressure task Care Plan Weekly blood pressure task No Nakul Gonzalez [facility] Patient has chronic kidney disease Care Plan Patient has chronic kidney disease No Nakul Gonzalez [facility] Patient has chronic kidney disease Care Plan Patient has chronic kidney disease No Nakul Gonzalez [facility] Weekly blood pressure task Care Plan Weekly blood pressure task No Heidi Castañeda RN Weekly blood pressure task Care Plan Weekly blood pressure task No Heidi Castañeda, SARAH BETH Patient has chronic kidney disease Care Plan Patient has chronic kidney disease No Heidi Castañeda RN Patient has chronic kidney disease Care Plan Patient has chronic kidney disease No Heidi Castañeda, RN Weekly blood pressure task Care Plan [...] Weekly blood pressure task No Nakul Gonzalez [facility] Weekly blood pressure task Care Plan Weekly blood pressure task No Nakul Gonzalez [facility] Patient has chronic kidney disease Care Plan Patient has chronic kidney disease No Nakul Gonzalez [facility] Patient has chronic kidney disease Care Plan Patient has chronic kidney disease No Nakul Gonzalez [facility] Weekly blood pressure task Care Plan [...] documented as of this encounter Care Teams Land Surveying Manager Relationship Specialty Start Date End Date Bianca Shearer MD [address] [place] [address] PCP - General Family Medicine 11/26/21 David Clark FNP [address] [place] [address] Nurse Practitioner Family Medicine 01/24/23 documented as of this encounter
--- OUTSIDE RECORDS SUMMARY | 2025-02-28 15:27 | XMS_ITS | Encounter Summary ---
Author Organization [employer] [facility] [employer] Address 75 [facility] 7t [place] [address] Care Team Providers Care Bilingual Sales Assistant Name Role Phone Bianca Shearer MD Primary Care Provider [phone] David Clark Unavailable Unavailable Reason for Visit * Reason Comments Med Refill Encounter Details Date Type Department Care Team (Late st Contact Info) Description 01/26/2025 Refill [facility] MEDICINE [address] [place], [place] [phone] Bianca Shearer MD [address] [place], [place] [phone] Social History Tobacco Use Types Packs/Day Years [...] Description 04/21/2025 11:30 AM EST Clinical Support [address] [address] Heidi Castañeda RN 05/09/2025 2:15 PM EST Office Visit [address] [address] Bianca Shearer MD [address] [place] [address] documented as of this encounter Goals Goal [...] Weekly blood pressure task No Nakul Gonzalez JACLYN Weekly blood pressure task Care Plan Weekly blood pressure task No Nakul Gonzalez JACLYN Patient has chronic kidney disease Care Plan Patient has chronic kidney disease No Nakul Gonzalez [facility] Patient has chronic kidney disease Care Plan Patient has chronic kidney disease No Nakul Gonzalez [facility] Weekly blood pressure [...] chronic kidney disease No Nakul Gonzalez [facility] documented as of this encounter Visit Diagnoses Not on filedocumented in this encounter Additional Health Concerns Active [...] 01/24/2025 Patient has chronic kidney disease 01/24/2025 Assessment Noted Time PHQ-9 Depression Total Score: 15 025 9:36 AM EDT documented as of this encounter Care Teams Bilingual Sales Assistant Relationship Specialty Start Date End Date Bianca Shearer MD [address] [place] [address] PCP - General Family Medicine 11/26/21 David Clark FNP [address] [place] [address] Nurse Practitioner Family Medicine 01/24/23 documented as of this encounter
== END 2025-02-28 13:47 | disposition home or self-care (01) ==
LOC: HO.MAMMO 13:46
PROVIDERS: PCP General Practice; Visit Provider General Practice
DX: Z12.31 Encounter for screening mammogram for malignant neoplasm of breast (principal)
CPT/HCPCS: 77063; 77067

== ENCOUNTER → 2025-02-28 14:15 | Outpatient (BNV) | payer MEDICAID, SELFPAY | PROVIDERS: PCP General Practice; Visit Provider Internal Medicine | DX: Z12.31 Encounter for screening mammogram for malignant neoplasm of breast (principal) | CPT/HCPCS: 77063; 77067 ==